=== PATIENT | female | born 1940 | race Hispanic/Latino ===

== ENCOUNTER 2018-03-21 01:27 | Inpatient (IN) | payer MEDICARE ==
[2018-03-21] MEDS ORDERED: ASPIRIN PO ONE (02:19)
--- NOTE | 2018-03-21 03:04 | Emergency Department Report ---
ED Chest Pain HPI - General Chief Complaint: Chest Pain Stated Complaint: CHEST PAIN Time Seen by Provider: 03/21/18 03:02 Source: patient, EMS Mode of arrival: Stretcher Limitations: No Limitations - History of Present Illness MD Complaint: chest pain -: Sudden Onset: during rest Pain Location: left chest Pain Radiation: LUE Severity: moderate Severity scale (0 -10): 5 Quality: heaviness, sharp Consistency: constant Improves With: nothing Worsens With: nothing re: nausea Treatments Prior to Arrival: none Aspirin use within the Past 7 Days: (1) Yes - Related Data On Oral Contraceptives: No Home Medications Medication Instructions Recorded Confirmed Last Taken Aspirin [Adult Aspirin] 81 mg PO DAILY 02/12/18 02/26/18 Unknown D-Methorphan/PE/Acetaminophen 1 each PO DAILY 02/12/18 02/26/18 Unknown [Theraflu Ms Severe Cold Pckt] Doxepin [SINEquan] 50 mg PO QHS 02/12/18 02/26/18 Unknown Escitalopram Oxalate [Lexapro] 20 mg PO QPM 02/12/18 02/26/18 Unknown Melatonin 10 mg PO QHS 02/12/18 02/26/18 Unknown Sitagliptin Phosphate [Januvia] 50 mg PO QPM 02/12/18 02/26/18 Unknown amLODIPine [Norvasc] 10 mg PO DAILY 02/12/18 02/26/18 Unknown busPIRone [Buspar] 5 mg PO TID 02/12/18 02/26/18 Unknown glyBURIDE [Glyburide] 5 mg PO TID 02/12/18 02/26/18 Unknown hydrOXYzine pamoate [Hydroxyzine 25 mg PO QPM 02/12/18 02/26/18 Unknown Pamoate] Clopidogrel [Plavix] 75 mg PO DAILY 02/26/18 02/26/18 Unknown Previous Rx's Medication Instructions Recorded Last Taken Type AtorvaSTATin [Lipitor] 40 mg PO QHS #30 tablet 02/15/18 Unknown Rx Benzonatate [Tessalon Perles] 100 mg PO Q8HR #10 capsule 02/15/18 Unknown Rx Lisinopril [Zestril] 10 mg PO DAILY 30 Days #120 tablet 03/06/18 Unknown Rx Metoprolol Xl [Metoprolol 25 mg PO QDAY #30 tablet 03/06/18 Unknown Rx SUCCINATE ER TAB] Allergies Allergy/AdvReac Type Severity Reaction Status Date / Time Penicillins Allergy Anaphylaxis Verified 02/12/18 19:14 trazodone Allergy Hives Verified 02/12/18 19:14 Heart Score - HEART Score History: Moderately suspicious EKG: Non-specific Age: > 65 Risk factors: > 3 risk factors or hx of atherosclerotic disease Troponin: < normal limit HEART Score: 6 - Critical Actions Critical Actions: 4-6 pts:12-16.6% risk of adverse cardiac event. Should be admitted ED Review of Systems ROS: Stated complaint: CHEST PAIN Other details as noted in HPI Comment: All other systems reviewed and negative Constitutional: denies: chills, fever Eyes: denies: eye pain, eye discharge, vision change ENT: denies: ear pain, throat pain Respiratory: shortness of breath. denies: cough, wheezing Cardiovascular: chest pain. denies: palpitations Endocrine: no symptoms reported Gastrointestinal: denies: abdominal pain, nausea, diarrhea Genitourinary: denies: urgency, dysuria, discharge Musculoskeletal: denies: back pain, joint swelling, arthralgia Skin: denies: rash, lesions Neurological: headache. denies: weakness, paresthesias Psychiatric: denies: anxiety, depression Hematological/Lymphatic: denies: easy bleeding, easy bruising ED Past Medical Hx - Past Medical History Previous Medical History?: Yes Hx Hypertension: Yes Hx CVA: Yes Hx Heart Attack/AMI: Yes Hx Congestive Heart Failure: No Hx Diabetes: Yes Hx Deep Vein Thrombosis: No Hx Liver Disease: No Hx Seizures: No Hx COPD: Yes Hx Dementia: No Hx HIV: Yes - Surgical History Past Surgical History?: Yes Hx Coronary Stent: Yes Hx Pacemaker: No Hx Internal Defibrillator: No Additional Surgical History: Cardia stent placement X4 - Social History Smoking Status: Unknown if ever smoked Substance Use Type: None - Medications Home Medications: Home Medications Medication Instructions Recorded Confirmed Last Taken Type Aspirin [Adult Aspirin] 81 mg PO DAILY 02/12/18 02/26/18 Unknown History D-Methorphan/PE/Acetaminophen 1 each PO DAILY 02/12/18 02/26/18 Unknown History [Theraflu Ms Severe Cold Pckt] Doxepin [SINEquan] 50 mg PO QHS 02/12/18 02/26/18 Unknown History Escitalopram Oxalate [Lexapro] 20 mg PO QPM 02/12/18 02/26/18 Unknown History Melatonin 10 mg PO QHS 02/12/18 02/26/18 Unknown History Sitagliptin Phosphate [Januvia] 50 mg PO QPM 02/12/18 02/26/18 Unknown History amLODIPine [Norvasc] 10 mg PO DAILY 02/12/18 02/26/18 Unknown History busPIRone [Buspar] 5 mg PO TID 02/12/18 02/26/18 Unknown History glyBURIDE [Glyburide] 5 mg PO TID 02/12/18 02/26/18 Unknown History hydrOXYzine pamoate [Hydroxyzine 25 mg PO QPM 02/12/18 02/26/18 Unknown History Pamoate] AtorvaSTATin [Lipitor] 40 mg PO QHS #30 tablet 02/15/18 02/26/18 Unknown Rx Benzonatate [Tessalon Perles] 100 mg PO Q8HR #10 capsule 02/15/18 02/26/18 Unknown Rx Clopidogrel [Plavix] 75 mg PO DAILY 02/26/18 02/26/18 Unknown History Lisinopril [Zestril] 10 mg PO DAILY 30 Days #120 tablet 03/06/18 Unknown Rx Metoprolol Xl [Metoprolol 25 mg PO QDAY #30 tablet 03/06/18 Unknown Rx SUCCINATE ER TAB] ED Physical Exam - General Limitations: No Limitations General appearance: alert, in no apparent distress - Head Head exam: Present: atraumatic, normocephalic - Eye Eye exam: Present: normal appearance, PERRL, EOMI Pupils: Present: normal accommodation - ENT ENT exam: Present: normal exam, mucous membranes moist - Neck Neck exam: Present: normal inspection, full ROM - Respiratory Respiratory exam: Present: normal lung sounds bilaterally. Absent: respiratory distress - Cardiovascular Cardiovascular Exam: Present: regular rate, normal rhythm. Absent: systolic murmur, diastolic murmur, rubs, gallop - GI/Abdominal GI/Abdominal exam: Present: soft, normal bowel sounds - Extremities Exam Extremities exam: Present: normal inspection - Back Exam Back exam: Present: normal inspection - Neurological Exam Neurological exam: Present: alert, oriented X3 - Psychiatric Psychiatric exam: Present: normal affect, normal mood - Skin Skin exam: Present: warm, dry, intact, normal color. Absent: rash ED Course Vital Signs 03/21/18 03/21/18 02:45 02:48 Temperature 97.7 F Pulse Rate 61 Respiratory 16 16 Rate Blood Pressure 123/74 [Left] O2 Sat by Pulse 98 98 Oximetry - Consultations Consultation #1: 03/21/18 05:28 Dr Hamilton Warner wantcecilia patient admitted to Dr bailey. OLEG score - Oleg Score Age > 65: (1) Yes Aspirin use within the Past 7 Days: (1) Yes 3 or more CAD Risk Factors: (1) Yes 2 or more Angina events in past 24 hrs: (1) Yes Known CAD with more than 50% Stenosis: (1) Yes Elevated Cardiac Markers: (0) No ST Deviation Greater than 0.5mm: (0) No OLEG Score: 5 ED Medical Decision Making - Lab Data Result diagrams: 03/21/18 02:45 03/21/18 02:45 Lab Results 03/21/18 03/21/18 Range/Units 02:45 02:45 WBC 9.3 (4.5-11.0) K/mm3 RBC 4.86 (3.65-5.03) M/mm3 Hgb 13.4 (10.1-14.3) gm/dl Hct 41.3 (30.3-42.9) % MCV 85 (79-97) fl MCH 28 (28-32) pg MCHC 32 (30-34) % RDW 14.2 (13.2-15.2) % Plt Count 431 (140-440) K/mm3 Lymph % (Auto) 32.2 (13.4-35.0) % [place] % (Auto) 10.2 H (0.0-7.3) % Eos % (Auto) 3.9 (0.0-4.3) % Baso % (Auto) 1.0 (0.0-1.8) % Lymph # 3.0 (1.2-5.4) K/mm3 [place] # 0.9 H (0.0-0.8) K/mm3 Eos # 0.4 (0.0-0.4) K/mm3 Baso # 0.1 (0.0-0.1) K/mm3 Seg Neutrophils % 52.7 (40.0-70.0) % Seg Neutrophils # 4.9 (1.8-7.7) K/mm3 Sodium 138 (137-145) mmol/L Potassium 4.5 (3.6-5.0) mmol/L Chloride 102.8 (98-107) mmol/L Carbon Dioxide 23 (22-30) mmol/L Anion Gap 17 mmol/L BUN 21 H (7-17) mg/dL Creatinine 0.5 L (0.7-1.2) mg/dL Estimated GFR > 60 ml/min BUN/Creatinine Ratio 42 % Glucose 133 H (65-100) mg/dL Calcium 9.1 (8.4-10.2) mg/dL Troponin T < 0.010 (0.00-0.029) ng/mL - EKG Data -: EKG Interpreted by Ct EKG shows normal: sinus rhythm Rate: bradycardia (58) - EKG Data When compared to previous EKG there are: previous EKG unavailable Interpretation: nonspecific ST-T wave subhash 03/21/18 03:26 RBBB, No STEMI. - Radiology Data Radiology results: report reviewed, image reviewed CXR and CT head showed no acute findings. - Medical Decision Making chest pain. Critical care attestation.: If time is entered above; I have spent that time in minutes in the direct care of this critically ill patient, excluding procedure time. ED Disposition Clinical Impression: Coronary artery disease with hx of myocardial infarct w/o hx of CABG Chest pain Qualifiers: Chest pain type: unspecified Qualified Code(s): R07.9 - Chest pain, unspecified Disposition: OP ADMIT IP TO THIS HOSP Is pt being admited?: Yes Does the pt Need Aspirin: Yes Condition: Stable Instructions: Chest Pain (ED) Referrals: PRIMARY CARE, [Primary Care Provider] - 3-5 Days Time of Disposition: 05:28
[2018-03-21 03:05] LABS: Basophils # (Auto) 0.1 K/mm3 (0.0-0.1); Eosinophils # (Auto) 0.4 K/mm3 (0.0-0.4); Eosinophils % (Auto) 3.9 % (0.0-4.3); Hematocrit 41.3 % (30.3-42.9); Hemoglobin 13.4 gm/dl (10.1-14.3); Lymphocytes % (Auto) 32.2 % (13.4-35.0); Mean Corpuscular HGB Conc 32 % (30-34); Mean Corpuscular Volume 85 fl (79-97); Monocytes # (Auto) 0.9 K/mm3 (0.0-0.8); Monocytes % (Auto) 10.2 % (0.0-7.3); Platelet Count 431 K/mm3 (140-440); Red Blood Count 4.86 M/mm3 (3.65-5.03); Red Cell Distribution Width 14.2 % (13.2-15.2)
[2018-03-21 03:13] LABS: BUN/Creatinine Ratio 42; Blood Urea Nitrogen 21 mg/dL (7-17); Calcium 9.1 mg/dL (8.4-10.2); Hemolysis Index 53
--- NOTE | 2018-03-21 03:43 | XRay Report ---
FINAL REPORT PROCEDURE: XR CHEST 1V AP TECHNIQUE: Chest radiograph anteroposterior view. CPT 64715 HISTORY: chest pain COMPARISON: 02/26/2018 FINDINGS: Heart: Normal. Mediastinum/Vessels: Normal. Lungs/Pleural space: Normal. Bony thorax: No acute osseous abnormality. Life support devices: None. IMPRESSION: No acute cardiopulmonary abnormality.
[2018-03-21 04:00] LABS: INR 0.97 (0.87-1.13)
[2018-03-21 04:01] LABS: Partial Thromboplastin Time 25.1 Sec. (24.2-36.6)
[2018-03-21] MEDS ORDERED: MORPHINE ONE (04:02)
--- NOTE | 2018-03-21 04:04 | Cat Scan Report ---
FINAL REPORT PROCEDURE: CT HEAD/BRAIN WO CON TECHNIQUE: Computerized tomography of the head was performed without contrast material. HISTORY: headache COMPARISON: No prior studies are available for comparison. FINDINGS: Skull and scalp: Normal. Paranasal sinuses: Normal. Ventricles and subarachnoid spaces: Normal. Cerebrum: No evidence of hemorrhage, acute infarction or mass . Cerebellum and brainstem: No evidence of hemorrhage, acute infarction or mass. Vasculature: Normal. Comments: None. IMPRESSION: There is no evidence of an acute intracranial process
[2018-03-21 04:18] LABS: Bilirubin,Urine NEG (Negative); Blood,Urine NEG (Negative); Color,Urine Yellow (Yellow); Mucus,Urine FEW /HPF; Protein,Urine <15 mg/dL mg/dL (Negative); Urobilinogen,Urine < 2.0 mg/dL (<2.0)
[2018-03-21] MEDS ORDERED: MORPHINE IV ONE (05:21)
--- NOTE | 2018-03-21 10:41 | History and Physical Report ---
History of Present Illness Date of examination: 03/21/18 Date of admission: 03/21/18 05:29 Chief complaint: chest pain History of present illness: Patient is 77-year-old with a history of coronary artery disease, hypertension,diabetes and previous stroke. She was just discharged from the hospital 03/12/2018 to [facility]. She presents with chest pain. Chest pain is left-sided, intensity 7 out of 10 radiating to the left arm. No aggravating factors. She denies diaphoresis. No shortness of breath. Patient has been admitted multiple times for similar presentation and was just discharged from here last week. She was evaluated in Emergency Department, given Aspirin. Admit for further management. Past History Past Medical History: CAD, diabetes, hypertension, hyperlipidemia, stroke Past Surgical History: , PTCA Social history: full code, other (Lives at [facility]). denies: smoking, alcohol abuse Family history: hypertension Medications and Allergies Allergies Allergy/AdvReac Type Severity Reaction Status Date / Time Penicillins Allergy Anaphylaxis Verified 02/12/18 19:14 trazodone Allergy Hives Verified 02/12/18 19:14 Home Medications Medication Instructions Recorded Confirmed Last Taken Type Escitalopram Oxalate [Lexapro] 20 mg PO QPM 02/12/18 03/21/18 Unknown History Melatonin 10 mg PO QHS 02/12/18 03/21/18 Unknown History Sitagliptin Phosphate [Januvia] 50 mg PO QPM 02/12/18 03/21/18 Unknown History amLODIPine [Norvasc] 10 mg PO DAILY 02/12/18 03/21/18 Unknown History busPIRone [Buspar] 5 mg PO TID 02/12/18 03/21/18 Unknown History glyBURIDE [Glyburide] 5 mg PO TID 02/12/18 03/21/18 Unknown History hydrOXYzine pamoate [Hydroxyzine 25 mg PO QPM 02/12/18 03/21/18 Unknown History Pamoate] AtorvaSTATin [Lipitor] 40 mg PO QHS #30 tablet 02/15/18 03/21/18 Unknown Rx Benzonatate [Tessalon Perles] 100 mg PO Q8HR #10 capsule 02/15/18 03/21/18 Unknown Rx Clopidogrel [Plavix] 75 mg PO DAILY 02/26/18 03/21/18 Unknown History Lisinopril [Zestril] 10 mg PO DAILY 30 Days #120 tablet 03/06/18 03/21/18 Unknow n Rx Metoprolol Xl [Metoprolol 25 mg PO QDAY #30 tablet 03/06/18 03/21/18 Unknown Rx SUCCINATE ER TAB] Acetaminophen [Tylenol] 650 mg PO Q4H PRN 03/21/18 03/21/18 Unknown History Aspirin 81 mg PO DAILY 03/21/18 03/21/18 Unknown History Donepezil [Aricept] 5 mg PO QHS 03/21/18 03/21/18 Unknown History Doxepin HCl 50 mg PO QHS 03/21/18 03/21/18 Unknown History Escitalopram Oxalate [Lexapro] 20 mg PO QPM 03/21/18 03/21/18 Unknown History Review of Systems All systems: negative (No cough, no fever, no shortness of breath, no abd pain. All other systems reviewed and are negative) Exam - Physical Exam Narrative exam: GEN: Not in acute distress,lying in bed HEENT: Normocephalic, atraumatic, Neck: supple, No JVD Lungs: Clear to auscultation, no wheeze Heart:S1 and S2 regular, no murmurs, rubs or gallop, Abd:soft, non tender, non distended, normal bowel sounds Ext: No edema, no clubbing or cyanosis Neuro: Awake,alert, oriented x 3, No focal signs Psych:Normal mood - Constitutional Vitals: Temp Pulse Resp BP Pulse Ox 97.7 F 62 17 126/49 96 03/21/18 02:45 03/21/18 09:00 03/21/18 09:00 03/21/18 09:00 03/21/18 09:00 Results - Labs CBC & Chem 7: 03/21/18 02:45 03/21/18 02:45 Labs: Abnormal lab results 03/21/18 03/21/18 03/21/18 Range/Units 02:45 02:45 Unknown [place] % (Auto) 10.2 H (0.0-7.3) % [place] # 0.9 H (0.0-0.8) K/mm3 BUN 21 H (7-17) mg/dL Creatinine 0.5 L (0.7-1.2) mg/dL Glucose 133 H (65-100) mg/dL Urine WBC (Auto) 14.0 H (0.0-6.0) /HPF Assessment and Plan Chest pain. Admit to Telemetry to r/o ACS Aspirin,Plavix serial Troponins Cardiology consulted She has had recent workup Coronary artery disease s/p PCI Resume home meds Diabetes mellitus type 2. Renew home meds Hypertension Monitor BP UTI. Get Urine culture Start Levaquin Failure to thrive. Patient just discharged to SNF last week, on 03/12/18 from here. Full code status
--- NOTE | 2018-03-21 11:10 | Consultation ---
History of Present Illness Consult date: 03/21/18 Consult reason: other (CAD and angina) History of present illness: 77 year old female presenting with chest pains which are left precordial and not associated with diaphoresis nausea vomiting or radiation. Patient is known to [facility] and was recently discharged with similar symptoms. Management plan is conservative. Past History Past Medical History: CAD, diabetes, hypertension, hyperlipidemia Social history: no significant social history Family history: no significant family history Medications and Allergies Allergies Allergy/AdvReac Type Severity Reaction Status Date / Time Penicillins Allergy Anaphylaxis Verified 02/12/18 19:14 trazodone Allergy Hives Verified 02/12/18 19:14 Home Medications Medication Instructions Recorded Confirmed Last Taken Type Escitalopram Oxalate [Lexapro] 20 mg PO QPM 02/12/18 03/21/18 Unknown History Melatonin 10 mg PO QHS 02/12/18 03/21/18 Unknown History Sitagliptin Phosphate [Januvia] 50 mg PO QPM 02/12/18 03/21/18 Unknown History amLODIPine [Norvasc] 10 mg PO DAILY 02/12/18 03/21/18 Unknown History busPIRone [Buspar] 5 mg PO TID 02/12/18 03/21/18 Unknown History glyBURIDE [Glyburide] 5 mg PO TID 02/12/18 03/21/18 Unknown History hydrOXYzine pamoate [Hydroxyzine 25 mg PO QPM 02/12/18 03/21/18 Unknown History Pamoate] AtorvaSTATin [Lipitor] 40 mg PO QHS #30 tablet 02/15/18 03/21/18 Unknown Rx Benzonatate [Tessalon Perles] 100 mg PO Q8HR #10 capsule 02/15/18 03/21/18 Unknown Rx Clopidogrel [Plavix] 75 mg PO DAILY 02/26/18 03/21/18 Unknown History Lisinopril [Zestril] 10 mg PO DAILY 30 Days #120 tablet 03/06/18 03/21/18 Unknown Rx Metoprolol Xl [Metoprolol 25 mg PO QDAY #30 tablet 03/06/18 03/21/18 Unknown Rx SUCCINATE ER TAB] Acetaminophen [Tylenol] 650 mg PO Q4H PRN 03/21/18 03/21/18 Unknown History Aspirin 81 mg PO DAILY 03/21/18 03/21/18 Unknown History Donepezil [Aricept] 5 mg PO QHS 03/21/18 03/21/18 Unknown History Doxepin HCl 50 mg PO QHS 03/21/18 03/21/18 Unknown History Escitalopram Oxalate [Lexapro] 20 mg PO QPM 03/21/18 03/21/18 Unknown History Review of Systems All systems: negative Cardiovascular: chest pain, shortness of breath Physical Examination Vital Signs Temp Pulse Resp BP Pulse Ox 97.7 F 61 16 123/74 98 03/21/18 02:45 03/21/18 02:45 03/21/18 02:45 03/21/18 02:45 03/21/18 02:45 General appearance: no acute distress, well-nourished HEENT: Positive: PERRL, Mucus Membranes Moist Neck: Positive: neck supple, trachea midline Cardiac: Positive: Reg Rate and Rhythm, S1/S2, S4, Audible Murmur, Systolic Murmur, PMI, Laterally Displaced Lungs: Positive: clear to auscultation, Normal Breath Sounds Neuro: Positive: Grossly Intact Abdomen: Positive: Soft, Active Bowel Sounds. Negative: Tender, Distended Skin: Positive: Clear Musculoskeletal: No Pain, Normal Range of Motion Extremities: Present: normal. Absent: edema Results 03/21/18 02:45 03/21/18 02:45 Coagulation 03/21/18 Range/Units 03:26 PT 13.3 (12.2-14.9) Sec. INR 0.97 (0.87-1.13) APTT 25.1 (24.2-36.6) Sec. CBC 03/21/18 Range/Units 02:45 WBC 9.3 (4.5-11.0) K/mm3 RBC 4.86 (3.65-5.03) M/mm3 Hgb 13.4 (10.1-14.3) gm/dl Hct 41.3 (30.3-42.9) % Plt Count 431 (140-440) K/mm3 Lymph # 3.0 (1.2-5.4) K/mm3 [place] # 0.9 H (0.0-0.8) K/mm3 Eos # 0.4 (0.0-0.4) K/mm3 Baso # 0.1 (0.0-0.1) K/mm3 Comprehensive Metabolic Panel 03/21/18 Range/Units 02:45 Sodium 138 (137-145) mmol/L Potassium 4.5 (3.6-5.0) mmol/L Chloride 102.8 (98-107) mmol/L Carbon Dioxide 23 (22-30) mmol/L BUN 21 H (7-17) mg/dL Creatinine 0.5 L (0.7-1.2) mg/dL Glucose 133 H (65-100) mg/dL Calcium 9.1 (8.4-10.2) mg/dL EKG interpretations - Telemetry EKG Rhythm: Sinus Rhythm Assessment and Plan 1. Coronary artery disease with class III angina 2. Status post PCI to proximal and mid LAD residual distal LAD disease not suitable for PCI 3. Type 2 diabetes mellitus 4. Hyperlipidemia 5. History of TIA/CVA Plan Continue conservative anti-ischemic medication maximize medication and Ranexa.
[2018-03-21] MEDS ORDERED: TYLENOL PO PRN ×2 (14:20→16:18)
[2018-03-21] MEDS: TOPROL XL PO SCH (14:59)
[2018-03-21] MEDS: TESSALON PERLES PO SCH ×2 (14:59→21:30)
[2018-03-21] MEDS ORDERED: SODIUM CHLORIDE FLUSH SYRINGE 10 ML IV PRN (16:18)
[2018-03-21] MEDS ORDERED: ZOFRAN IV PRN (16:18)
[2018-03-21] MEDS: MORPHINE IV PRN (16:31)
[2018-03-21] MEDS: ZESTRIL PO SCH (17:28)
[2018-03-21] MEDS: NORVASC PO SCH (17:29)
[2018-03-21] MEDS: VISTARIL PO SCH (17:29)
[2018-03-21] MEDS: TRADJENTA PO SCH (17:29)
[2018-03-21] MEDS: BABY ASPIRIN PO SCH (17:29)
[2018-03-21] MEDS: PLAVIX PO SCH (17:29)
[2018-03-21] MEDS: LEXAPRO PO SCH (17:30)
[2018-03-21] MEDS ORDERED: NON-FORMULARY (Sitagliptin Phosphate [Januvia] 50 MG) PO SCH (18:00)
[2018-03-21] MEDS ORDERED: NON-FORMULARY (Escitalopram Oxalate [Lexapro] 20 MG) PO SCH (18:00)
[2018-03-21] MEDS: LEVAQUIN 500MG/100ML 500 MG/100 ML BAG IV SCH (21:29)
[2018-03-21] MEDS: BUSPAR PO SCH (21:30)
[2018-03-21] MEDS: SODIUM CHLORIDE FLUSH SYRINGE 10 ML IV SCH (21:30)
[2018-03-21] MEDS: ARICEPT PO SCH (21:30)
[2018-03-21] MEDS: DIABETA PO SCH (21:30)
[2018-03-21] MEDS: SINEquan PO SCH (21:31)
[2018-03-21] MEDS ORDERED: NON-FORMULARY (Melatonin [Melatonin] 10 MG) PO SCH (22:00)
[2018-03-21] MEDS ORDERED: DOXEPIN HCL 50 MG PO SCH (22:00)
[2018-03-22] MEDS: TESSALON PERLES PO SCH ×3 (05:46→21:28)
[2018-03-22 06:16] LABS: Basophils # (Auto) 0.1 K/mm3 (0.0-0.1); Basophils % (Auto) 0.8 % (0.0-1.8); Eosinophils # (Auto) 0.4 K/mm3 (0.0-0.4); Eosinophils % (Auto) 3.6 % (0.0-4.3); Hemoglobin 13.8 gm/dl (10.1-14.3); Lymphocytes % (Auto) 29.9 % (13.4-35.0); Mean Corpuscular HGB Conc 32 % (30-34); Mean Corpuscular Volume 85 fl (79-97); Monocytes # (Auto) 0.9 K/mm3 (0.0-0.8); Monocytes % (Auto) 8.6 % (0.0-7.3); Platelet Count 420 K/mm3 (140-440); Red Blood Count 5.03 M/mm3 (3.65-5.03); Red Cell Distribution Width 14.1 % (13.2-15.2)
[2018-03-22 06:31] LABS: BUN/Creatinine Ratio 30; Blood Urea Nitrogen 15 mg/dL (7-17); Calcium 8.8 mg/dL (8.4-10.2); Hemolysis Index 41
[2018-03-22] MEDS: MORPHINE IV PRN ×2 (08:54→14:15)
[2018-03-22] MEDS: DIABETA PO SCH ×3 (08:58→20:23)
[2018-03-22] MEDS: PLAVIX PO SCH (08:59)
[2018-03-22] MEDS: ZESTRIL PO SCH (08:59)
[2018-03-22] MEDS: BABY ASPIRIN PO SCH (09:00)
[2018-03-22] MEDS: BUSPAR PO SCH ×5 (09:00→23:21)
[2018-03-22] MEDS: NORVASC PO SCH (09:01)
[2018-03-22] MEDS: SODIUM CHLORIDE FLUSH SYRINGE 10 ML IV SCH ×3 (09:02→23:26)
[2018-03-22] MEDS: TOPROL XL PO SCH (09:02)
--- NOTE | 2018-03-22 10:30 | Progress Note ---
Assessment and Plan 1. Coronary artery disease with class III angina 2. Status post PCI to proximal and mid LAD residual distal LAD disease not suitable for PCI 3. Type 2 diabetes mellitus 4. Hyperlipidemia 5. History of TIA/CVA Plan Continue conservative anti-ischemic medication maximize medication and Ranexa. Subjective Date of service: 03/22/18 Interval history: No cardiac symptoms Objective Vital Signs Temp Pulse Resp BP Pulse Ox 03/22/18 09:02 72 03/22/18 09:01 72 03/22/18 08:59 72 03/22/18 08:08 98.0 F 75 20 119/61 93 03/22/18 04:19 98.0 F 60 18 118/51 97 03/22/18 02:00 79 03/21/18 23:52 97.0 F L 67 18 117/57 96 03/21/18 19:11 98.0 F 70 20 114/56 91 03/21/18 18:48 96 03/21/18 17:21 97.9 F 61 16 134/55 94 03/21/18 14:59 71 138/78 03/21/18 13:18 98.2 F 71 18 138/78 91 - Physical Examination General: Appears Well, No Apparent Distress HEENT: Positive: PERRL, Mucus Membranes Moist Neck: Positive: neck supple, trachea midline Cardiac: Positive: Regular Rate, S1/S2, S3, S4, PMI, Dilated, Laterally Displaced Lungs: Positive: clear to auscultation, No Wheeze, Rales, Rhonchi Neuro: Positive: Grossly Intact Abdomen: Positive: Soft, Active Bowel Sounds. Negative: Tender, Distended Skin: Positive: Clear Musculoskeletal: No Pain, Normal Range of Motion Extremities: Present: normal. Absent: edema - Labs and Meds CBC 03/22/18 Range/Units 05:42 WBC 10.1 (4.5-11.0) K/mm3 RBC 5.03 (3.65-5.03) M/mm3 Hgb 13.8 (10.1-14.3) gm/dl Hct 43.0 H (30.3-42.9) % Plt Count 420 (140-440) K/mm3 Lymph # 3.0 (1.2-5.4) K/mm3 [place] # 0.9 H (0.0-0.8) K/mm3 Eos # 0.4 (0.0-0.4) K/mm3 Baso # 0.1 (0.0-0.1) K/mm3 Comprehensive Metabolic Panel 03/22/18 Range/Units 05:42 Sodium 140 (137-145) mmol/L Potassium 4.6 (3.6-5.0) mmol/L Chloride 102.6 (98-107) mmol/L Carbon Dioxide 24 (22-30) mmol/L BUN 15 (7-17) mg/dL Creatinine 0.5 L (0.7-1.2) mg/dL Glucose 114 H (65-100) mg/dL Calcium 8.8 (8.4-10.2) mg/dL
--- NOTE | 2018-03-22 11:11 | Progress Note ---
Assessment and Plan Assessment and plan: Chest pain. Admit to Telemetry to r/o ACS Aspirin,Plavix serial Troponins Cardiology consulted She has had recent workup Ranexa added by cardiology Coronary artery disease s/p PCI Resume home meds Diabetes mellitus type 2. Renew home meds Hypertension Monitor BP UTI. Get Urine culture Started Levaquin Failure to thrive. Patient just discharged to SNF last week, on 03/12/18 from here. Full code status History Interval history: Presented with chest pain Hospitalist Physical - Physical exam Narrative exam: GEN: Not in acute distress,lying in bed HEENT: Normocephalic, atraumatic, Neck: supple, No JVD Lungs: Clear to auscultation, no wheeze Heart:S1 and S2 regular, no murmurs, rubs or gallop, Abd:soft, non tender, non distended, normal bowel sounds Ext: No edema, no clubbing or cyanosis Neuro: Awake,alert, oriented x 3, No focal signs Psych:Normal mood - Constitutional Vitals: Temp Pulse Resp BP Pulse Ox 98.0 F 72 20 119/61 93 03/22/18 08:08 03/22/18 09:02 03/22/18 08:08 03/22/18 08:08 03/22/18 08:08 General appearance: Present: no acute distress, well-nourished Results - Labs CBC & Chem 7: 03/22/18 05:42 03/22/18 05:42 Labs: Laboratory Last Values WBC 10.1 K/mm3 (4.5-11.0) 03/22/18 05:42 RBC 5.03 M/mm3 (3.65-5.03) 03/22/18 05:42 Hgb 13.8 gm/dl (10.1-14.3) 03/22/18 05:42 Hct 43.0 % (30.3-42.9) H 03/22/18 05:42 MCV 85 fl (79-97) 03/22/18 05:42 MCH 27 pg (28-32) L 03/22/18 05:42 MCHC 32 % (30-34) 03/22/18 05:42 RDW 14.1 % (13.2-15.2) 03/22/18 05:42 Plt Count 420 K/mm3 (140-440) 03/22/18 05:42 Lymph % (Auto) 29.9 % (13.4-35.0) 03/22/18 05:42 [place] % (Auto) 8.6 % (0.0-7.3) H 03/22/18 05:42 Eos % (Auto) 3.6 % (0.0-4.3) 03/22/18 05:42 Baso % (Auto) 0.8 % (0.0-1.8) 03/22/18 05:42 Lymph # 3.0 K/mm3 (1.2-5.4) 03/22/18 05:42 [place] # 0.9 K/mm3 (0.0-0.8) H 03/22/18 05:42 Eos # 0.4 K/mm3 (0.0-0.4) 03/22/18 05:42 Baso # 0.1 K/mm3 (0.0-0.1) 03/22/18 05:42 Seg Neutrophils % 57.1 % (40.0-70.0) 03/22/18 05:42 Seg Neutrophils # 5.8 K/mm3 (1.8-7.7) 03/22/18 05:42 PT 13.3 Sec. (12.2-14.9) 03/21/18 03:26 INR 0.97 (0.87-1.13) 03/21/18 03:26 APTT 25.1 Sec. (24.2-36.6) 03/21/18 03:26 D-Dimer 216.43 ng/mlDDU (0-234) 03/21/18 03:26 Sodium 140 mmol/L (137-145) 03/22/18 05:42 Potassium 4.6 mmol/L (3.6-5.0) 03/22/18 05:42 Chloride 102.6 mmol/L (98-107) 03/22/18 05:42 Carbon Dioxide 24 mmol/L (22-30) 03/22/18 05:42 Anion Gap 18 mmol/L 03/22/18 05:42 BUN 15 mg/dL (7-17) 03/22/18 05:42 Creatinine 0.5 mg/dL (0.7-1.2) L 03/22/18 05:42 Estimated GFR > 60 ml/min 03/22/18 05:42 BUN/Creatinine Ratio 30 % 03/22/18 05:42 Glucose 114 mg/dL (65-100) H 03/22/18 05:42 POC Glucose 110 (70-105) H 03/22/18 06:30 Calcium 8.8 mg/dL (8.4-10.2) 03/22/18 05:42 Troponin T < 0.010 ng/mL (0.00-0.029) 03/21/18 08:24 NT-Pro-B Natriuret Pep 33.77 pg/mL (0-900) 03/21/18 03:26 Lipase 26 units/L (13-60) 03/21/18 03:26 Urine Color Yellow (Yellow) 03/21/18 Unknown Urine Turbidity Clear (Clear) 03/21/18 Unknown Urine pH 5.0 (5.0-7.0) 03/21/18 Unknown Ur Specific [place] 1.020 (1.003-1.030) 03/21/18 Unknown Urine Protein <15 mg/dl mg/dL (Negative) 03/21/18 Unknown Urine Glucose (UA) Neg mg/dL (Negative) 03/21/18 Unknown Urine Ketones Neg mg/dL (Negative) 03/21/18 Unknown Urine Blood Neg (Negative) 03/21/18 Unknown Urine Nitrite Neg (Negative) 03/21/18 Unknown Urine Bilirubin Neg (Negative) 03/21/18 Unknown Urine Urobilinogen < 2.0 mg/dL (<2.0) 03/21/18 Unknown Ur Leukocyte Esterase Mod (Negative) 03/21/18 Unknown Urine WBC (Auto) 14.0 /HPF (0.0-6.0) H 03/21/18 Unknown Urine RBC (Auto) 1.0 /HPF (0.0-6.0) 03/21/18 Unknown U Epithel Cells (Auto) 1.0 /HPF (0-13.0) 03/21/18 Unknown Urine Mucus Few /HPF 03/21/18 Unknown
[2018-03-22] MEDS: RANEXA ER PO SCH ×2 (13:03→21:42)
[2018-03-22] MEDS: LEXAPRO PO SCH (18:38)
[2018-03-22] MEDS: TRADJENTA PO SCH (18:38)
[2018-03-22] MEDS: VISTARIL PO SCH (18:39)
[2018-03-22] MEDS: LEVAQUIN 500MG/100ML 500 MG/100 ML BAG IV SCH (20:24)
[2018-03-22] MEDS: ARICEPT PO SCH (21:42)
[2018-03-22] MEDS: SINEquan PO SCH (21:42)
[2018-03-22] MEDS: LOVENOX SUB-Q SCH (21:45)
[2018-03-23] MEDS: AMBIEN PO PRN ×2 (00:55→22:13)
[2018-03-23] MEDS: TESSALON PERLES PO SCH ×3 (06:23→22:11)
--- NOTE | 2018-03-23 09:53 | Progress Note ---
Assessment and Plan Assessment and plan: Chest pain. Angina Admit to Telemetry to r/o ACS Aspirin,Plavix serial Troponins Cardiology following She has had recent workup Ranexa added by cardiology Coronary artery disease s/p PCI Resume home meds Diabetes mellitus type 2. Renew home meds Hypertension Monitor BP UTI Started Levaquin Failure to thrive. Patient just discharged to SNF last week, on 03/12/18 from here. Full code status Poss dc to SNF tomorrow if no more chest pain. History Interval history: Presented with chest pain, had chest pain last night Hospitalist Physical - Physical exam Narrative exam: GEN: Not in acute distress,lying in bed HEENT: Normocephalic, atraumatic, Neck: supple, No JVD Lungs: Clear to auscultation, no wheeze Heart:S1 and S2 regular, no murmurs, rubs or gallop, Abd:soft, non tender, non distended, normal bowel sounds Ext: No edema, no clubbing or cyanosis Neuro: Awake,alert, oriented x 3, No focal signs Psych:Normal mood - Constitutional Vitals: Temp Pulse Resp BP Pulse Ox 98.6 F 72 16 132/59 92 03/23/18 08:26 03/23/18 08:26 03/23/18 08:26 03/23/18 08:26 03/23/18 08:26 General appearance: Present: no acute distress, well-nourished Results - Labs CBC & Chem 7: 03/22/18 05:42 03/22/18 05:42 Labs: Laboratory Last Values WBC 10.1 K/mm3 (4.5-11.0) 03/22/18 05:42 RBC 5.03 M/mm3 (3.65-5.03) 03/22/18 05:42 Hgb 13.8 gm/dl (10.1-14.3) 03/22/18 05:42 Hct 43.0 % (30.3-42.9) H 03/22/18 05:42 MCV 85 fl (79-97) 03/22/18 05:42 MCH 27 pg (28-32) L 03/22/18 05:42 MCHC 32 % (30-34) 03/22/18 05:42 RDW 14.1 % (13.2-15.2) 03/22/18 05:42 Plt Count 420 K/mm3 (140-440) 03/22/18 05:42 Lymph % (Auto) 29.9 % (13.4-35.0) 03/22/18 05:42 [place] % (Auto) 8.6 % (0.0-7.3) H 03/22/18 05:42 Eos % (Auto) 3.6 % (0.0-4.3) 03/22/18 05:42 Baso % (Auto) 0.8 % (0.0-1.8) 03/22/18 05:42 Lymph # 3.0 K/mm3 (1.2-5.4) 03/22/18 05:42 [place] # 0.9 K/mm3 (0.0-0.8) H 03/22/18 05:42 Eos # 0.4 K/mm3 (0.0-0.4) 03/22/18 05:42 Baso # 0.1 K/mm3 (0.0-0.1) 03/22/18 05:42 Seg Neutrophils % 57.1 % (40.0-70.0) 03/22/18 05:42 Seg Neutrophils # 5.8 K/mm3 (1.8-7.7) 03/22/18 05:42 PT 13.3 Sec. (12.2-14.9) 03/21/18 03:26 INR 0.97 (0.87-1.13) 03/21/18 03:26 APTT 25.1 Sec. (24.2-36.6) 03/21/18 03:26 D-Dimer 216.43 ng/mlDDU (0-234) 03/21/18 03:26 Sodium 140 mmol/L (137-145) 03/22/18 05:42 Potassium 4.6 mmol/L (3.6-5.0) 03/22/18 05:42 Chloride 102.6 mmol/L (98-107) 03/22/18 05:42 Carbon Dioxide 24 mmol/L (22-30) 03/22/18 05:42 Anion Gap 18 mmol/L 03/22/18 05:42 BUN 15 mg/dL (7-17) 03/22/18 05:42 Creatinine 0.5 mg/dL (0.7-1.2) L 03/22/18 05:42 Estimated GFR > 60 ml/min 03/22/18 05:42 BUN/Creatinine Ratio 30 % 03/22/18 05:42 Glucose 114 mg/dL (65-100) H 03/22/18 05:42 POC Glucose 76 (70-105) 03/23/18 06:13 Calcium 8.8 mg/dL (8.4-10.2) 03/22/18 05:42 Troponin T < 0.010 ng/mL (0.00-0.029) 03/21/18 08:24 NT-Pro-B Natriuret Pep 33.77 pg/mL (0-900) 03/21/18 03:26 Lipase 26 units/L (13-60) 03/21/18 03:26 Urine Color Yellow (Yellow) 03/21/18 Unknown Urine Turbidity Clear (Clear) 03/21/18 Unknown Urine pH 5.0 (5.0-7.0) 03/21/18 Unknown Ur Specific [place] 1.020 (1.003-1.030) 03/21/18 Unknown Urine Protein <15 mg/dl mg/dL (Negative) 03/21/18 Unknown Urine Glucose (UA) Neg mg/dL (Negative) 03/21/18 Unknown Urine Ketones Neg mg/dL (Negative) 03/21/18 Unknown Urine Blood Neg (Negative) 03/21/18 Unknown Urine Nitrite Neg (Negative) 03/21/18 Unknown Urine Bilirubin Neg (Negative) 03/21/18 Unknown Urine Urobilinogen < 2.0 mg/dL (<2.0) 03/21/18 Unknown Ur Leukocyte Esterase Mod (Negative) 03/21/18 Unknown Urine WBC (Auto) 14.0 /HPF (0.0-6.0) H 03/21/18 Unknown Urine RBC (Auto) 1.0 /HPF (0.0-6.0) 03/21/18 Unknown U Epithel Cells (Auto) 1.0 /HPF (0-13.0) 03/21/18 Unknown Urine Mucus Few /HPF 03/21/18 Unknown
--- NOTE | 2018-03-23 10:43 | Progress Note ---
Addendum entered and electronically signed by JOON PHIPPS MD 03/23/18 17:44: Medical therapy for small vessel coronary artery disease and chronic stable angina pectoris. Original Note: Assessment and Plan Chronic stable angina CAD with history of [place] and PCI Cath 10/2016 - Widely patent prox and mid LAD stent. Medical therapy recommended for small vessel CAD. Echo 10/2016 - normal LVEF MPI 10/2016 - small area of decreased perfusion in the anteroseptal wall with partial improvement at rest MPI 01/2018 showing the same defect noted previously History of TIA and CVA Hyperlipidemia NIDDM Hearing impairment Recommend: Continue medical therapy for chronic stable angina and coronary artery disease. Subjective Date of service: 03/23/18 Interval history: Patient reports less chest pain today. Objective Vital Signs Temp Pulse Resp BP Pulse Ox 03/23/18 08:26 98.6 F 72 16 132/59 92 03/23/18 06:14 98.0 F 70 18 129/63 92 03/22/18 23:40 98.9 F 17 119/51 03/22/18 22:00 64 03/22/18 19:45 98.1 F 17 118/49 03/22/18 16:04 98.0 F 64 20 136/48 92 03/22/18 11:22 98.0 F 73 20 135/57 95 - Physical Examination General: No Apparent Distress HEENT: Positive: PERRL Neck: Positive: trachea midline Cardiac: Positive: Reg Rate and Rhythm Lungs: Positive: Decreased Breath Sounds Neuro: Positive: Grossly Intact Abdomen: Positive: Active Bowel Sounds Extremities: Absent: edema
[2018-03-23] MEDS: BUSPAR PO SCH ×3 (11:54→21:23)
[2018-03-23] MEDS: NORVASC PO SCH (11:55)
[2018-03-23] MEDS: TOPROL XL PO SCH (11:56)
[2018-03-23] MEDS: RANEXA ER PO SCH ×2 (11:56→22:11)
[2018-03-23] MEDS: PLAVIX PO SCH (11:56)
[2018-03-23] MEDS: BABY ASPIRIN PO SCH (11:57)
[2018-03-23] MEDS: ZESTRIL PO SCH (11:57)
[2018-03-23] MEDS: SODIUM CHLORIDE FLUSH SYRINGE 10 ML IV SCH ×2 (11:58→22:13)
[2018-03-23] MEDS: DIABETA PO SCH ×3 (12:02→21:23)
[2018-03-23] MEDS ORDERED: NITROSTAT SL ONE (18:02)
[2018-03-23] MEDS: LEXAPRO PO SCH (18:49)
[2018-03-23] MEDS: TRADJENTA PO SCH (18:50)
[2018-03-23] MEDS: NITROSTAT SL PRN (18:52)
[2018-03-23] MEDS: VISTARIL PO SCH (19:38)
[2018-03-23 20:19] LABS: Creatine Kinase MB 1.3 ng/mL (0.0-4.0)
[2018-03-23] MEDS: LEVAQUIN PO SCH (21:23)
[2018-03-23] MEDS: LOVENOX SUB-Q SCH (22:11)
[2018-03-23] MEDS: ARICEPT PO SCH (22:12)
[2018-03-23] MEDS: SINEquan PO SCH (22:12)
[2018-03-24] MEDS: TESSALON PERLES PO SCH ×3 (05:44→22:11)
[2018-03-24] MEDS: NORVASC PO SCH (09:25)
[2018-03-24] MEDS: RANEXA ER PO SCH ×2 (09:25→22:11)
[2018-03-24] MEDS: ZESTRIL PO SCH (09:25)
[2018-03-24] MEDS: BUSPAR PO SCH ×3 (09:25→22:12)
[2018-03-24] MEDS: BABY ASPIRIN PO SCH (09:25)
[2018-03-24] MEDS: DIABETA PO SCH ×3 (09:26→22:10)
[2018-03-24] MEDS: IMDUR PO SCH (09:26)
[2018-03-24] MEDS: PLAVIX PO SCH (09:26)
--- NOTE | 2018-03-24 11:16 | Progress Note ---
Addendum entered and electronically signed by JOON PHIPPS MD 03/24/18 14:17: Medical therapy for chronic stable angina including Ranexa. Original Note: Assessment and Plan Chronic stable angina CAD with history of [place] and PCI Cath 10/2016 - Widely patent prox and mid LAD stent. Medical therapy recommended for small vessel CAD. Echo 10/2016 - normal LVEF MPI 10/2016 - small area of decreased perfusion in the anteroseptal wall with partial improvement at rest MPI 01/2018 showing the same defect noted previously History of TIA and CVA Hyperlipidemia NIDDM Hearing impairment Recommend: Continue medical therapy for chronic stable angina and coronary artery disease. Stable cardiac bailey. Once discharged, patient advised to follow-up with her primary roll weigher at [place]. Subjective Date of service: 03/24/18 Interval history: Patient denies chest pain. Reports she is feeling better. Objective Vital Signs Temp Pulse Pulse Resp BP BP Pulse Ox 03/24/18 08:28 18 03/24/18 08:24 97.9 F 70 16 123/55 96 03/24/18 04:02 98.3 F 69 18 131/62 94 03/24/18 00:07 98.4 F 65 18 101/39 89 03/23/18 22:35 74 18 96 03/23/18 19:50 98.4 F 74 18 122/52 96 03/23/18 19:38 70 03/23/18 19:15 73 03/23/18 18:52 78 03/23/18 18:00 76 03/23/18 16:30 98.6 F 74 18 136/86 97 03/23/18 11:57 65 03/23/18 11:56 65 03/23/18 11:55 65 - Physical Examination General: No Apparent Distress HEENT: Positive: PERRL Neck: Positive: trachea midline Cardiac: Positive: Reg Rate and Rhythm Lungs: Positive: Decreased Breath Sounds Neuro: Positive: Grossly Intact Abdomen: Positive: Active Bowel Sounds Skin: Positive: Clear Extremities: Absent: edema - Labs and Meds Cardiac Enzymes 03/23/18 Range/Units 19:25 CK-MB (CK-2) 1.3 (0.0-4.0) ng/mL
[2018-03-24] MEDS: SODIUM CHLORIDE FLUSH SYRINGE 10 ML IV SCH ×2 (11:52→22:13)
[2018-03-24] MEDS: TOPROL XL PO SCH (11:52)
[2018-03-24] MEDS ORDERED: ATIVAN PO ONE (14:00)
--- NOTE | 2018-03-24 14:03 | Progress Note ---
Assessment and Plan Assessment and plan: 77-year-old man who is well-known to the hospital. She presents with chest pain multiple times. She has been seen by cardiology, was not recommended any further workup or treatment. It is felt that she's malingering to stay in the hospital. . Her medications were optimized for angina, UTI was ruled by negative urine cx. At this point she is ready for discharge. She also has a bed at a residential. But she is refusing discharged stating that she was incontinent today, she states she has chronic incontinence, but does not want to leave the hospital on days when she is incontinent. appeal of her discharge has been done through Medicare Discharge diagnoses Chest pain due to chronic angina cad sp pci dm type 2 htn History Interval history: Review of systems Constitutional: No fevers, no malaise, no joint pains CVS: No chest pain, no orthopnea, no dyspnea on exertion, no pedal edema GI: No abdominal pain, no diarrhea, no vomiting, no constipation Respiratory: No shortness of breath, no wheezing, no coughing Hospitalist Physical - Physical exam Narrative exam: General.: Appears well, no distress, nontoxic HEENT: Moist mucous membranes, extraocular muscles intact, no lymphadenopathy Neck: supple Cardiac: S1-S2 heard Lungs: clear to auscultation bilaterally Abdomen: soft , nontender, nondistended, bowel sounds positive Extremities: no edema clubbing or cyanosis Skin: no rash or lesions Neurologic: no gross focal deficits Psych: calm, and cooperative - Constitutional Vitals: Temp Pulse Resp BP Pulse Ox 98.4 F 75 16 104/53 95 03/24/18 13:41 03/24/18 13:41 03/24/18 13:41 03/24/18 13:41 03/24/18 13:41 General appearance: Present: no acute distress, well-nourished Results - Labs CBC & Chem 7: 03/22/18 05:42 03/22/18 05:42 Labs: Laboratory Last Values WBC 10.1 K/mm3 (4.5-11.0) 03/22/18 05:42 RBC 5.03 M/mm3 (3.65-5.03) 03/22/18 05:42 Hgb 13.8 gm/dl (10.1-14.3) 03/22/18 05:42 Hct 43.0 % (30.3-42.9) H 03/22/18 05:42 MCV 85 fl (79-97) 03/22/18 05:42 MCH 27 pg (28-32) L 03/22/18 05:42 MCHC 32 % (30-34) 03/22/18 05:42 RDW 14.1 % (13.2-15.2) 03/22/18 05:42 Plt Count 420 K/mm3 (140-440) 03/22/18 05:42 Lymph % (Auto) 29.9 % (13.4-35.0) 03/22/18 05:42 [place] % (Auto) 8.6 % (0.0-7.3) H 03/22/18 05:42 Eos % (Auto) 3.6 % (0.0-4.3) 03/22/18 05:42 Baso % (Auto) 0.8 % (0.0-1.8) 03/22/18 05:42 Lymph # 3.0 K/mm3 (1.2-5.4) 03/22/18 05:42 [place] # 0.9 K/mm3 (0.0-0.8) H 03/22/18 05:42 Eos # 0.4 K/mm3 (0.0-0.4) 03/22/18 05:42 Baso # 0.1 K/mm3 (0.0-0.1) 03/22/18 05:42 Seg Neutrophils % 57.1 % (40.0-70.0) 03/22/18 05:42 Seg Neutrophils # 5.8 K/mm3 (1.8-7.7) 03/22/18 05:42 PT 13.3 Sec. (12.2-14.9) 03/21/18 03:26 INR 0.97 (0.87-1.13) 03/21/18 03:26 APTT 25.1 Sec. (24.2-36.6) 03/21/18 03:26 D-Dimer 216.43 ng/mlDDU (0-234) 03/21/18 03:26 Sodium 140 mmol/L (137-145) 03/22/18 05:42 Potassium 4.6 mmol/L (3.6-5.0) 03/22/18 05:42 Chloride 102.6 mmol/L (98-107) 03/22/18 05:42 Carbon Dioxide 24 mmol/L (22-30) 03/22/18 05:42 Anion Gap 18 mmol/L 03/22/18 05:42 BUN 15 mg/dL (7-17) 03/22/18 05:42 Creatinine 0.5 mg/dL (0.7-1.2) L 03/22/18 05:42 Estimated GFR > 60 ml/min 03/22/18 05:42 BUN/Creatinine Ratio 30 % 03/22/18 05:42 Glucose 114 mg/dL (65-100) H 03/22/18 05:42 POC Glucose 169 (70-105) H 03/24/18 11:53 Calcium 8.8 mg/dL (8.4-10.2) 03/22/18 05:42 Total Creatine Kinase 50 units/L (30-135) 03/23/18 19:25 CK-MB (CK-2) 1.3 ng/mL (0.0-4.0) 03/23/18 19:25 CK-MB (CK-2) Rel Index 2.6 (0-4) 03/23/18 19:25 Troponin T < 0.010 ng/mL (0.00-0.029) 03/23/18 19:25 NT-Pro-B Natriuret Pep 33.77 pg/mL (0-900) 03/21/18 03:26 Lipase 26 units/L (13-60) 03/21/18 03:26 Urine Color Yellow (Yellow) 03/21/18 Unknown Urine Turbidity Clear (Clear) 03/21/18 Unknown Urine pH 5.0 (5.0-7.0) 03/21/18 Unknown Ur Specific [place] 1.020 (1.003-1.030) 03/21/18 Unknown Urine Protein <15 mg/dl mg/dL (Negative) 03/21/18 Unknown Urine Glucose (UA) Neg mg/dL (Negative) 03/21/18 Unknown Urine Ketones Neg mg/dL (Negative) 03/21/18 Unknown Urine Blood Neg (Negative) 03/21/18 Unknown Urine Nitrite Neg (Negative) 03/21/18 Unknown Urine Bilirubin Neg (Negative) 03/21/18 Unknown Urine Urobilinogen < 2.0 mg/dL (<2.0) 03/21/18 Unknown Ur Leukocyte Esterase Mod (Negative) 03/21/18 Unknown Urine WBC (Auto) 14.0 /HPF (0.0-6.0) H 03/21/18 Unknown Urine RBC (Auto) 1.0 /HPF (0.0-6.0) 03/21/18 Unknown U Epithel Cells (Auto) 1.0 /HPF (0-13.0) 03/21/18 Unknown Urine Mucus Few /HPF 03/21/18 Unknown
[2018-03-24] MEDS: VISTARIL PO SCH (18:01)
[2018-03-24] MEDS: TRADJENTA PO SCH (18:01)
[2018-03-24] MEDS: LEXAPRO PO SCH (18:01)
[2018-03-24] MEDS: AMBIEN PO PRN (22:09)
[2018-03-24] MEDS: LEVAQUIN PO SCH (22:10)
[2018-03-24] MEDS: SINEquan PO SCH (22:11)
[2018-03-24] MEDS: ARICEPT PO SCH (22:12)
[2018-03-24] MEDS: LOVENOX SUB-Q SCH (22:12)
[2018-03-25] MEDS: TESSALON PERLES PO SCH ×3 (06:52→21:41)
[2018-03-25] MEDS: DIABETA PO SCH ×3 (08:57→21:43)
[2018-03-25] MEDS: BUSPAR PO SCH ×3 (08:57→21:40)
--- NOTE | 2018-03-25 10:31 | Progress Note ---
Assessment and Plan Chronic stable angina CAD with history of [place] and PCI Cath 10/2016 - Widely patent prox and mid LAD stent. Medical therapy recommended for small vessel CAD. Echo 10/2016 - normal LVEF MPI 10/2016 - small area of decreased perfusion in the anteroseptal wall with partial improvement at rest MPI 01/2018 showing the same defect noted previously History of TIA and CVA Hyperlipidemia NIDDM Hearing impairment Recommend: Continue medical therapy for chronic stable angina and coronary artery disease. Stable cardiac bailey. Once discharged, patient advised to follow-up with her primary psychological aide at [place]. Subjective Date of service: 03/25/18 Interval history: Patient denies chest pain. Awaits rehab placement. Objective Vital Signs Temp Pulse Resp BP Pulse Ox 03/25/18 08:07 98.0 F 82 16 132/61 98 03/25/18 04:48 98.4 F 74 18 131/57 93 03/24/18 23:51 98.2 F 72 18 106/41 85 03/24/18 19:23 97.9 F 75 18 100/38 95 03/24/18 19:19 97.9 F 70 18 99/33 87 03/24/18 19:00 69 03/24/18 17:42 97.7 F 84 18 119/64 95 03/24/18 13:41 98.4 F 75 16 104/53 95 - Physical Examination General: No Apparent Distress HEENT: Positive: PERRL Neck: Positive: trachea midline Cardiac: Positive: Reg Rate and Rhythm Lungs: Positive: Decreased Breath Sounds Neuro: Positive: Grossly Intact Abdomen: Positive: Active Bowel Sounds Skin: Positive: Clear Extremities: Absent: edema
[2018-03-25] MEDS: TOPROL XL PO SCH (10:33)
[2018-03-25] MEDS: IMDUR PO SCH (10:34)
[2018-03-25] MEDS: NORVASC PO SCH (10:34)
[2018-03-25] MEDS: PLAVIX PO SCH (10:34)
[2018-03-25] MEDS: RANEXA ER PO SCH ×2 (10:34→21:42)
[2018-03-25] MEDS: BABY ASPIRIN PO SCH (10:34)
[2018-03-25] MEDS: ZESTRIL PO SCH (10:34)
[2018-03-25] MEDS: SODIUM CHLORIDE FLUSH SYRINGE 10 ML IV SCH ×2 (10:36→21:43)
[2018-03-25] MEDS: NITROSTAT SL PRN (11:30)
[2018-03-25] MEDS: MORPHINE IV PRN (11:50)
--- NOTE | 2018-03-25 13:32 | Discharge Summary ---
Providers - Providers Date of Admission: 03/21/18 05:29 Attending physician: LISA PENNINGTON MD 03/21/18 09:08 Consult to Physician [CONS] Routine Comment: Consulting Provider: JOON PHPIPS Physician Instructions: Reason For Exam: Chest pain 03/24/18 12:01 Consult to Mental Health [CONS] Routine Reason For Exam: an[address] Place consult to:: pysc Notified:: y Primary care physician: MARSHA MAXWELL MD Hospitalization Condition: Stable Disposition: DC-30 STILL A PATIENT Core Measure Documentation - Palliative Care Palliative Care/ Comfort Measures: Not Applicable Exam - Constitutional Vitals: Temp Pulse Resp BP Pulse Ox 98.0 F 88 20 126/56 98 03/25/18 08:07 03/25/18 11:30 03/25/18 11:50 03/25/18 11:03 03/25/18 08:07 Plan Follow up with: MARSHA MAXWELL MD [Primary Care Provider] - 3-5 Days
--- NOTE | 2018-03-25 14:15 | Consultation ---
History of Present Illness - Reason for Consult Consult date: 03/25/18 Reason for consult: Initial Psychiatric Evaluation - History of Present Psychiatric Illness Patient is 77-year-old white female with a history of coronary artery disease, hypertension,diabetes and previous stroke. She was just discharged from the hospital 03/12/2018 to residential. She presents with chest pain. Psychiatry was consulted for anxiety. Patient has a PPHx MDD and ARMIDA. She states that her current drug regimen has kept her stable for 5 years. She states " the only time I have depression is when it's situational". Recently patient's cousin and she is missing her daughter who moved to [place] two years ago with her 4 grandchildren. Patient reports appropriate sleep, appetite, energy , and anxious mood/panic attacks. She denies anhedonia. She denies SI/HI's, A/ VH's, and delusions. Although patient is compliant with Lexapro, she states " Zoloft works better for me. It keeps me even. I'm going to start retaking that once I'm discharged. " Throughout the assessment some confusion is noted. Patient gives conflicting responses to questions. Current Psychiatric Medications: Buspar 5mg po TID, Lexapro 20mg po QPM, Vistaril 25mg po QPM. Past Psychiatric History: MDD (2012), ARMIDA(2012); 1 previous inpatient psychiatric hospitalization ( [facility]) - per patient; outpatient psychiatrist - Dr. Jaeger; no previous suicide attempts. Past Psychiatric Medication Trials: Zoloft - ": approximately 5 years" = effective; Xanax " occasionally" Drug/Alcohol Abuse: Patient denies drug/alcohol abuse. Social History: Master's Degree in [employer]; Lives at [facility]; 1 daughter -41 years old; 4 grandchildren; Family History of Psychiatric Illness/Substance Abuse: Patient denies. Medications and Allergies Allergies Allergy/AdvReac Type Severity Reaction Status Date / Time Penicillins Allergy Anaphylaxis Verified 02/12/18 19:14 trazodone Allergy Hives Verified 02/12/18 19:14 Home Medications Medication Instructions Recorded Confirmed Last Taken Type Escitalopram Oxalate [Lexapro] 20 mg PO QPM 02/12/18 03/21/18 Unknown History Melatonin 10 mg PO QHS 02/12/18 03/21/18 Unknown History Sitagliptin Phosphate [Januvia] 50 mg PO QPM 02/12/18 03/21/18 Unknown History amLODIPine [Norvasc] 10 mg PO DAILY 02/12/18 03/21/18 Unknown History busPIRone [Buspar] 5 mg PO TID 02/12/18 03/21/18 Unknown History glyBURIDE [Glyburide] 5 mg PO TID 02/12/18 03/21/18 Unknown History hydrOXYzine pamoate [Hydroxyzine 25 mg PO QPM 02/12/18 03/21/18 Unknown History Pamoate] AtorvaSTATin [Lipitor] 40 mg PO QHS #30 tablet 02/15/18 03/21/18 Unknown Rx Benzonatate [Tessalon Perles] 100 mg PO Q8HR #10 capsule 02/15/18 03/21/18 Unknown Rx Clopidogrel [Plavix] 75 mg PO DAILY 02/26/18 03/21/18 Unknown History Lisinopril [Zestril] 10 mg PO DAILY 30 Days #120 tablet 03/06/18 03/21/18 Unknown Rx Metoprolol Xl [Metoprolol 25 mg PO QDAY #30 tablet 03/06/18 03/21/18 Unknown Rx SUCCINATE ER TAB] Acetaminophen [Acetaminophen TAB] 650 mg PO Q4H PRN 03/21/18 03/21/18 Unknown History Aspirin 81 mg PO DAILY 03/21/18 03/21/18 Unknown History Donepezil [Aricept] 5 mg PO QHS 03/21/18 03/21/18 Unknown History Doxepin HCl 50 mg PO QHS 03/21/18 03/21/18 Unknown History Escitalopram Oxalate [Lexapro] 20 mg PO QPM 03/21/18 03/21/18 Unknown History Active Meds: Active Medications Acetaminophen (Tylenol) 650 mg PO Q4H PRN PRN Reason: Pain Last Admin: 03/21/18 15:00 Dose: 650 mg Documented by: Amlodipine Besylate (Norvasc) 10 mg PO DAILY [facility] Last Admin: 03/25/18 10:34 Dose: 10 mg Documented by: Aspirin (Baby Aspirin) 81 mg PO DAILY [facility] Last Admin: 03/25/18 10:34 Dose: 81 mg Documented by: Atorvastatin Calcium (Lipitor) 40 mg PO QHS [facility] Last Admin: 03/24/18 22:11 Dose: 40 mg Documented by: Benzonatate (Tessalon Perles) 100 mg PO Q8HR [facility] Last Admin: 03/25/18 06:52 Dose: 100 mg Documented by: Buspirone HCl (Buspar) 5 mg PO TID [facility] Last Admin: 03/25/18 08:57 Dose: 5 mg Documented by: Clopidogrel Bisulfate (Plavix) 75 mg PO DAILY [facility] Last Admin: 03/25/18 10:34 Dose: 75 mg Documented by: Donepezil HCl (Aricept) 5 mg PO QHS [facility] Last Admin: 03/24/18 22:12 Dose: 5 mg Documented by: Doxepin HCl (Sinequan) 50 mg PO QHS [facility] Last Admin: 03/24/18 22:11 Dose: 50 mg Documented by: Enoxaparin Sodium (Lovenox) 40 mg SUB-Q QDAY@2200 [facility] Last Admin: 03/24/18 22:12 Dose: 40 mg Documented by: Escitalopram Oxalate (Lexapro) 20 mg PO QPM [facility] Last Admin: 03/24/18 18:01 Dose: 20 mg Documented by: Glyburide (Diabeta) 5 mg PO TID [facility] Last Admin: 03/25/18 08:57 Dose: 5 mg Documented by: Hydroxyzine Pamoate (Vistaril) 25 mg PO QPM [facility] Last Admin: 03/24/18 18:01 Dose: 25 mg Documented by: Isosorbide Mononitrate (Imdur) 30 mg PO QDAY [facility] Last Admin: 03/25/18 10:34 Dose: 30 mg Documented by: Levofloxacin (Levaquin) 500 mg PO Q24HR@2000 [facility] Last Admin: 03/24/18 22:10 Dose: 500 mg Documented by: Linagliptin (Tradjenta) 5 mg PO DAILY@1800 [facility] Last Admin: 03/24/18 18:01 Dose: 5 mg Documented by: Lisinopril (Zestril) 10 mg PO DAILY [facility] Last Admin: 03/25/18 10:34 Dose: 10 mg Documented by: Metoprolol Succinate (Toprol Xl) 25 mg PO QDAY [facility] Last Admin: 03/25/18 10:33 Dose: 25 mg Documented by: Morphine Sulfate (Morphine) 2 mg IV Q4H PRN PRN Reason: Pain, Moderate (4-6) Last Admin: 03/25/18 11:50 Dose: 2 mg Documented by: Nitroglycerin (Nitrostat) 0.4 mg SL .Q5MIN PRN PRN Reason: Chest Pain Last Admin: 03/25/18 11:30 Dose: 0.4 mg Documented by: Ondansetron HCl (Zofran) 4 mg IV Q8H PRN PRN Reason: Nausea And Vomiting Ranolazine (Ranexa Er) 500 mg PO BID [facility] Last Admin: 03/25/18 10:34 Dose: 500 mg Documented by: Sodium Chloride (Sodium Chloride Flush Syringe 10 Ml) 10 ml IV BID [facility] Last Admin: 03/25/18 10:36 Dose: Not Given Documented by: Sodium Chloride (Sodium Chloride Flush Syringe 10 Ml) 10 ml IV PRN PRN PRN Reason: LINE FLUSH Zolpidem Tartrate (Ambien) 10 mg PO QHS PRN PRN Reason: Sleep Last Admin: 03/24/18 22:09 Dose: 10 mg Documented by: Mental Status Exam - Vital signs Last Vital Signs Temp 98.0 F 03/25/18 08:07 Pulse 88 03/25/18 11:30 Resp 20 03/25/18 11:50 BP 126/56 03/25/18 11:03 Pulse Ox 98 03/25/18 08:07 - Exam Narrative exam: Mental Status Exam Appearance: calm, cooperative Behavior: regular eye contact Speech: regular rate with a low tone Mood: "normal"; depressed/anxious Affect: congruent with mood Thought Process: circumstantial Thought Content: denies SI/HI's, AVH's, and delusions Motor Activity:lying in bed Cognition: A/O x3 Insight: fair to variable Judgment: fair Results Result Diagrams: 03/22/18 05:42 03/22/18 05:42 Abnormal lab results 03/24/18 03/25/18 Range/Units 16:16 11:09 POC Glucose 141 H 177 H (70-105) All other labs normal. Assessment and Plan Assessment and plan: Impression: PPHx MDD and ARMIDA. Today the patient is cooperative but anxious du ring the assessment. She denies SI/HI's, A/VH's, and delusions. DDx: R/O Bipolar DO Recommendation/Plan: 1. Will reassess in 24 hours. 2. Increase Buspar 7.5mg po TID anxiety. 3. Discontinue Lexapro. 4. Start Zoloft 25mg po QAM depression/anxiety. Discussed possible suicidality/medication induced jeanna with the patient reference Zoloft. 5. Will monitor mood, sleep, appetite, compliance, and side effects. Disposition: Will attempt to gain collateral to determine proper disposition. Will staff with Dr. Lenore Pitts.
--- NOTE | 2018-03-25 15:07 | Progress Note ---
Assessment and Plan Assessment and plan: 77-year-old man who is well-known to the hospital. She presents with chest pain multiple times. She has been seen by cardiology, was not recommended any further workup or treatment. It is felt that she's malingering to stay in the hospital. . Her medications were optimized for angina, UTI was ruled by negative urine cx. At this point she is ready for discharge. [facility]. But she is refusing discharge. appeal of her discharge has been done through Medicare Discharge diagnoses Chest pain due to chronic angina cad sp pci dm type 2 htn History Interval history: Review of systems Constitutional: No fevers, no malaise, no joint pains CVS: No chest pain, no orthopnea, no dyspnea on exertion, no pedal edema GI: No abdominal pain, no diarrhea, no vomiting, no constipation Respiratory: No shortness of breath, no wheezing, no coughing Hospitalist Physical - Physical exam Narrative exam: General.: Appears well, no distress, nontoxic HEENT: Moist mucous membranes, extraocular muscles intact, no lymphadenopathy Neck: supple Cardiac: S1-S2 heard Lungs: clear to auscultation bilaterally Abdomen: soft , nontender, nondistended, bowel sounds positive Extremities: no edema clubbing or cyanosis Skin: no rash or lesions Neurologic: no gross focal deficits Psych: calm, and cooperative - Constitutional Vitals: Temp Pulse Resp BP Pulse Ox 98.0 F 88 20 126/56 98 03/25/18 08:07 03/25/18 11:30 03/25/18 11:50 03/25/18 11:03 03/25/18 08:07 General appearance: Present: no acute distress, well-nourished Results - Labs CBC & Chem 7: 03/22/18 05:42 03/22/18 05:42 Labs: Laboratory Last Values WBC 10.1 K/mm3 (4.5-11.0) 03/22/18 05:42 RBC 5.03 M/mm3 (3.65-5.03) 03/22/18 05:42 Hgb 13.8 gm/dl (10.1-14.3) 03/22/18 05:42 Hct 43.0 % (30.3-42.9) H 03/22/18 05:42 MCV 85 fl (79-97) 03/22/18 05:42 MCH 27 pg (28-32) L 03/22/18 05:42 MCHC 32 % (30-34) 03/22/18 05:42 RDW 14.1 % (13.2-15.2) 03/22/18 05:42 Plt Count 420 K/mm3 (140-440) 03/22/18 05:42 Lymph % (Auto) 29.9 % (13.4-35.0) 03/22/18 05:42 [place] % (Auto) 8.6 % (0.0-7.3) H 03/22/18 05:42 Eos % (Auto) 3.6 % (0.0-4.3) 03/22/18 05:42 Baso % (Auto) 0.8 % (0.0-1.8) 03/22/18 05:42 Lymph # 3.0 K/mm3 (1.2-5.4) 03/22/18 05:42 [place] # 0.9 K/mm3 (0.0-0.8) H 03/22/18 05:42 Eos # 0.4 K/mm3 (0.0-0.4) 03/22/18 05:42 Baso # 0.1 K/mm3 (0.0-0.1) 03/22/18 05:42 Seg Neutrophils % 57.1 % (40.0-70.0) 03/22/18 05:42 Seg Neutrophils # 5.8 K/mm3 (1.8-7.7) 03/22/18 05:42 PT 13.3 Sec. (12.2-14.9) 03/21/18 03:26 INR 0.97 (0.87-1.13) 03/21/18 03:26 APTT 25.1 Sec. (24.2-36.6) 03/21/18 03:26 D-Dimer 216.43 ng/mlDDU (0-234) 03/21/18 03:26 Sodium 140 mmol/L (137-145) 03/22/18 05:42 Potassium 4.6 mmol/L (3.6-5.0) 03/22/18 05:42 Chloride 102.6 mmol/L (98-107) 03/22/18 05:42 Carbon Dioxide 24 mmol/L (22-30) 03/22/18 05:42 Anion Gap 18 mmol/L 03/22/18 05:42 BUN 15 mg/dL (7-17) 03/22/18 05:42 Creatinine 0.5 mg/dL (0.7-1.2) L 03/22/18 05:42 Estimated GFR > 60 ml/min 03/22/18 05:42 BUN/Creatinine Ratio 30 % 03/22/18 05:42 Glucose 114 mg/dL (65-100) H 03/22/18 05:42 POC Glucose 177 (70-105) H 03/25/18 11:09 Calcium 8.8 mg/dL (8.4-10.2) 03/22/18 05:42 Total Creatine Kinase 50 units/L (30-135) 03/23/18 19:25 CK-MB (CK-2) 1.3 ng/mL (0.0-4.0) 03/23/18 19:25 CK-MB (CK-2) Rel Index 2.6 (0-4) 03/23/18 19:25 Troponin T < 0.010 ng/mL (0.00-0.029) 03/23/18 19:25 NT-Pro-B Natriuret Pep 33.77 pg/mL (0-900) 03/21/18 03:26 Lipase 26 units/L (13-60) 03/21/18 03:26 Urine Color Yellow (Yellow) 03/21/18 Unknown Urine Turbidity Clear (Clear) 03/21/18 Unknown Urine pH 5.0 (5.0-7.0) 03/21/18 Unknown Ur Specific [place] 1.020 (1.003-1.030) 03/21/18 Unknown Urine Protein <15 mg/dl mg/dL (Negative) 03/21/18 Unknown Urine Glucose (UA) Neg mg/dL (Negative) 03/21/18 Unknown Urine Ketones Neg mg/dL (Negative) 03/21/18 Unknown Urine Blood Neg (Negative) 03/21/18 Unknown Urine Nitrite Neg (Negative) 03/21/18 Unknown Urine Bilirubin Neg (Negative) 03/21/18 Unknown Urine Urobilinogen < 2.0 mg/dL (<2.0) 03/21/18 Unknown Ur Leukocyte Esterase Mod (Negative) 03/21/18 Unknown Urine WBC (Auto) 14.0 /HPF (0.0-6.0) H 03/21/18 Unknown Urine RBC (Auto) 1.0 /HPF (0.0-6.0) 03/21/18 Unknown U Epithel Cells (Auto) 1.0 /HPF (0-13.0) 03/21/18 Unknown Urine Mucus Few /HPF 03/21/18 Unknown
[2018-03-25] MEDS: TRADJENTA PO SCH (17:27)
[2018-03-25] MEDS: LEXAPRO PO SCH (17:27)
[2018-03-25] MEDS: VISTARIL PO SCH (17:27)
[2018-03-25] MEDS: LOVENOX SUB-Q SCH (21:39)
[2018-03-25] MEDS: SINEquan PO SCH (21:42)
[2018-03-25] MEDS: ARICEPT PO SCH (21:43)
[2018-03-25] MEDS ORDERED: AMBIEN PO ONE (22:50)
[2018-03-26] MEDS: TESSALON PERLES PO SCH ×3 (06:28→22:01)
--- NOTE | 2018-03-26 08:58 | Progress Note ---
Addendum entered and electronically signed by JOON PHIPPS MD 03/26/18 11:05: Medical therapy for chronic stable angina pectoris, okay for cardiac discharge and outpatient follow-up. Original Note: Assessment and Plan Chronic stable angina CAD with history of NE and PCI Cath 10/2016 - Widely patent prox and mid LAD stent. Medical therapy recommended for small vessel CAD. Echo 10/2016 - normal LVEF MPI 10/2016 - small area of decreased perfusion in the anteroseptal wall with partial improvement at rest MPI 01/2018 showing the same defect noted previously History of TIA and CVA Hyperlipidemia NIDDM Hearing impairment Recommend: Continue medical therapy for chronic stable angina and coronary artery disease. Stable cardiac bailey. Once discharged, patient advised to follow-up with her primary business education instructor at [place]. Subjective Date of service: 03/26/18 Interval history: Patient denies chest pain. She has no cardiac complaints. Awaits rehab placement. Objective Vital Signs Temp Pulse Resp BP Pulse Ox 03/26/18 07:21 98.9 F 72 20 100/65 91 03/26/18 01:43 97.8 F 58 L 20 98/46 91 03/25/18 19:43 97.4 F L 69 14 120/54 95 03/25/18 19:00 74 03/25/18 16:56 67 18 111/48 95 03/25/18 16:55 98.1 F 03/25/18 11:50 20 03/25/18 11:30 88 03/25/18 11:03 16 126/56 03/25/18 10:34 125/44 03/25/18 10:33 805 H 125/44 - Physical Examination General: No Apparent Distress HEENT: Positive: PERRL Neck: Positive: trachea midline Cardiac: Positive: Reg Rate and Rhythm Lungs: Positive: Decreased Breath Sounds Neuro: Positive: Grossly Intact Abdomen: Positive: Active Bowel Sounds Skin: Positive: Clear Musculoskeletal: No Pain, Normal Range of Motion Extremities: Absent: edema
[2018-03-26] MEDS: IMDUR PO SCH (09:00)
[2018-03-26] MEDS: NORVASC PO SCH (09:00)
[2018-03-26] MEDS: ZESTRIL PO SCH (09:00)
[2018-03-26] MEDS: TOPROL XL PO SCH (09:00)
[2018-03-26] MEDS: ZOLOFT PO SCH (09:32)
[2018-03-26] MEDS: RANEXA ER PO SCH ×2 (09:32→22:02)
[2018-03-26] MEDS: PLAVIX PO SCH (09:32)
[2018-03-26] MEDS: BABY ASPIRIN PO SCH (09:32)
[2018-03-26] MEDS: SODIUM CHLORIDE FLUSH SYRINGE 10 ML IV SCH ×2 (10:12→22:03)
[2018-03-26] MEDS: BUSPAR PO SCH ×3 (10:12→22:02)
[2018-03-26] MEDS: DIABETA PO SCH ×3 (10:12→22:02)
--- NOTE | 2018-03-26 12:41 | Progress Note ---
Subjective - Reason for Consult Consult date: 03/26/18 Reason for consult: Psychiatry Follow-up - Chief Complaint Chief complaint: "I'm much much better" 77-year-old white female with a history of coronary artery disease, hypertension,diabetes and previous stroke. She was just discharged from the hospital 03/12/2018 to skilled nursing. Today the patient is calm and cooperative during the assessment. She stated that all her medications are managed by her PCP. She stated that she prefer to continue to allow her PCP to manage her medications. She was able to ID the past/current [place] Presidents and state her . She was able to say why she was brought to the hospital when asked. She denies being anxious and depression. She denies SI/HI's and AVH's. She denies any side effects of her medications. Mental Status Exam - Vital signs Last Vital Signs Temp 98.9 F 03/26/18 07:21 Pulse 72 03/26/18 07:21 Resp 20 03/26/18 07:21 BP 100/65 03/26/18 07:21 Pulse Ox 91 03/26/18 07:21 - Exam Narrative exam: MSE: Appearance: calm, cooperative Behavior: regular eye contact Speech: regular rate and tone Mood: "okay" Affect: congruent to mood Thought Process: logical Thought Content: denies SI/HI's and AVH's Motor Activity: sitting up in bed Cognition: A/O x3 Insight: fair Judgment: fair Assessment and Plan Impression: MDD. ARMIDA. Today the patient is calm and cooperative during the assessment. DDx: R/O Bipolar DO Recommendation/Plan: Continue Buspar 7.5 mg PO TID for anxiety and Zoloft 25 mg PO daily for depression/anxiety. Discussed possible suicidality/medication induced jeanna with the patient reference Zoloft. Psy sign off. Dispo: The patient can follow up with her PCP for outpatient psy services and medication management. Staffed with Dr Schulte.
--- NOTE | 2018-03-26 14:45 | Progress Note ---
Assessment and Plan Assessment and plan: 77-year-old man who is well-known to the hospital. She presents with chest pain multiple times. She has been seen by cardiology, was not recommended any further workup or treatment. It is felt that she's malingering to stay in the hospital. . Her medications were optimized for angina, UTI was ruled by negative urine cx. At this point she is ready for discharge. She also has a bed at a [place] [facility]. But she is refusing discharge. appeal of her discharge has been done through Medicare Discharge diagnoses Chest pain due to chronic angina cad sp pci dm type 2 htn History Interval history: Review of systems Constitutional: No fevers, no malaise, no joint pains CVS: No chest pain, no orthopnea, no dyspnea on exertion, no pedal edema GI: No abdominal pain, no diarrhea, no vomiting, no constipation Respiratory: No shortness of breath, no wheezing, no coughing Hospitalist Physical - Physical exam Narrative exam: General.: Appears well, no distress, nontoxic HEENT: Moist mucous membranes, extraocular muscles intact, no lymphadenopathy Neck: supple Cardiac: S1-S2 heard Lungs: clear to auscultation bilaterally Abdomen: soft , nontender, nondistended, bowel sounds positive Extremities: no edema clubbing or cyanosis Skin: no rash or lesions Neurologic: no gross focal deficits Psych: calm, and cooperative - Constitutional Vitals: Temp Pulse Resp BP Pulse Ox 98.0 F 76 20 121/55 92 03/26/18 13:33 03/26/18 13:33 03/26/18 13:33 03/26/18 13:33 03/26/18 13:33 General appearance: Present: no acute distress, well-nourished Results - Labs CBC & Chem 7: 03/22/18 05:42 03/22/18 05:42 Labs: Laboratory Last Values WBC 10.1 K/mm3 (4.5-11.0) 03/22/18 05:42 RBC 5.03 M/mm3 (3.65-5.03) 03/22/18 05:42 Hgb 13.8 gm/dl (10.1-14.3) 03/22/18 05:42 Hct 43.0 % (30.3-42.9) H 03/22/18 05:42 MCV 85 fl (79-97) 03/22/18 05:42 MCH 27 pg (28-32) L 03/22/18 05:42 MCHC 32 % (30-34) 03/22/18 05:42 RDW 14.1 % (13.2-15.2) 03/22/18 05:42 Plt Count 420 K/mm3 (140-440) 03/22/18 05:42 Lymph % (Auto) 29.9 % (13.4-35.0) 03/22/18 05:42 [place] % (Auto) 8.6 % (0.0-7.3) H 03/22/18 05:42 Eos % (Auto) 3.6 % (0.0-4.3) 03/22/18 05:42 Baso % (Auto) 0.8 % (0.0-1.8) 03/22/18 05:42 Lymph # 3.0 K/mm3 (1.2-5.4) 03/22/18 05:42 [place] # 0.9 K/mm3 (0.0-0.8) H 03/22/18 05:42 Eos # 0.4 K/mm3 (0.0-0.4) 03/22/18 05:42 Baso # 0.1 K/mm3 (0.0-0.1) 03/22/18 05:42 Seg Neutrophils % 57.1 % (40.0-70.0) 03/22/18 05:42 Seg Neutrophils # 5.8 K/mm3 (1.8-7.7) 03/22/18 05:42 PT 13.3 Sec. (12.2-14.9) 03/21/18 03:26 INR 0.97 (0.87-1.13) 03/21/18 03:26 APTT 25.1 Sec. (24.2-36.6) 03/21/18 03:26 D-Dimer 216.43 ng/mlDDU (0-234) 03/21/18 03:26 Sodium 140 mmol/L (137-145) 03/22/18 05:42 Potassium 4.6 mmol/L (3.6-5.0) 03/22/18 05:42 Chloride 102.6 mmol/L (98-107) 03/22/18 05:42 Carbon Dioxide 24 mmol/L (22-30) 03/22/18 05:42 Anion Gap 18 mmol/L 03/22/18 05:42 BUN 15 mg/dL (7-17) 03/22/18 05:42 Creatinine 0.5 mg/dL (0.7-1.2) L 03/22/18 05:42 Estimated GFR > 60 ml/min 03/22/18 05:42 BUN/Creatinine Ratio 30 % 03/22/18 05:42 Glucose 114 mg/dL (65-100) H 03/22/18 05:42 POC Glucose 228 (70-105) H 03/26/18 11:26 Calcium 8.8 mg/dL (8.4-10.2) 03/22/18 05:42 Total Creatine Kinase 50 units/L (30-135) 03/23/18 19:25 CK-MB (CK-2) 1.3 ng/mL (0.0-4.0) 03/23/18 19:25 CK-MB (CK-2) Rel Index 2.6 (0-4) 03/23/18 19:25 Troponin T < 0.010 ng/mL (0.00-0.029) 03/23/18 19:25 NT-Pro-B Natriuret Pep 33.77 pg/mL (0-900) 03/21/18 03:26 Lipase 26 units/L (13-60) 03/21/18 03:26 Urine Color Yellow (Yellow) 03/21/18 Unknown Urine Turbidity Clear (Clear) 03/21/18 Unknown Urine pH 5.0 (5.0-7.0) 03/21/18 Unknown Ur Specific [place] 1.020 (1.003-1.030) 03/21/18 Unknown Urine Protein <15 mg/dl mg/dL (Negative) 03/21/18 Unknown Urine Glucose (UA) Neg mg/dL (Negative) 03/21/18 Unknown Urine Ketones Neg mg/dL (Negative) 03/21/18 Unknown Urine Blood Neg (Negative) 03/21/18 Unknown Urine Nitrite Neg (Negative) 03/21/18 Unknown Urine Bilirubin Neg (Negative) 03/21/18 Unknown Urine Urobilinogen < 2.0 mg/dL (<2.0) 03/21/18 Unknown Ur Leukocyte Esterase Mod (Negative) 03/21/18 Unknown Urine WBC (Auto) 14.0 /HPF (0.0-6.0) H 03/21/18 Unknown Urine RBC (Auto) 1.0 /HPF (0.0-6.0) 03/21/18 Unknown U Epithel Cells (Auto) 1.0 /HPF (0-13.0) 03/21/18 Unknown Urine Mucus Few /HPF 03/21/18 Unknown
[2018-03-26] MEDS: TRADJENTA PO SCH (17:56)
[2018-03-26] MEDS: VISTARIL PO SCH (17:56)
[2018-03-26] MEDS: LOVENOX SUB-Q SCH (22:01)
[2018-03-26] MEDS: ARICEPT PO SCH (22:01)
[2018-03-26] MEDS: SINEquan PO SCH (22:03)
[2018-03-26] MEDS ORDERED: AMBIEN PO PRN (22:59)
[2018-03-27] MEDS: TESSALON PERLES PO SCH ×2 (06:23→14:02)
--- NOTE | 2018-03-27 07:37 | Progress Note ---
Assessment and Plan Assessment and plan: 77-year-old man who is well-known to the hospital. She presents with chest pain multiple times. She has been seen by cardiology, was not recommended any further workup or treatment. It is felt that she's malingering to stay in the hospital. . Her medications were optimized for angina, UTI was ruled by negative urine cx. At this point she is ready for discharge. She also has a bed at a care home. But she is refusing discharge. appeal of her discharge has been done through Medicare Discharge diagnoses Chest pain due to chronic angina cad sp pci dm type 2 htn History Interval history: Review of systems Constitutional: No fevers, no malaise, no joint pains CVS: No chest pain, no orthopnea, no dyspnea on exertion, no pedal edema GI: No abdominal pain, no diarrhea, no vomiting, no constipation Respiratory: No shortness of breath, no wheezing, no coughing Hospitalist Physical - Physical exam Narrative exam: General.: Appears well, no distress, nontoxic HEENT: Moist mucous membranes, extraocular muscles intact, no lymphadenopathy Neck: supple Cardiac: S1-S2 heard Lungs: clear to auscultation bilaterally Abdomen: soft , nontender, nondistended, bowel sounds positive Extremities: no edema clubbing or cyanosis Skin: no rash or lesions Neurologic: no gross focal deficits Psych: calm, and cooperative - Constitutional Vitals: Temp Pulse Resp BP Pulse Ox 98.1 F 76 18 126/58 97 03/26/18 19:59 03/26/18 20:15 03/26/18 20:26 03/26/18 19:59 03/26/18 19:59 General appearance: Present: no acute distress, well-nourished Results - Labs CBC & Chem 7: 03/22/18 05:42 03/22/18 05:42 Labs: Laboratory Last Values WBC 10.1 K/mm3 (4.5-11.0) 03/22/18 05:42 RBC 5.03 M/mm3 (3.65-5.03) 03/22/18 05:42 Hgb 13.8 gm/dl (10.1-14.3) 03/22/18 05:42 Hct 43.0 % (30.3-42.9) H 03/22/18 05:42 MCV 85 fl (79-97) 03/22/18 05:42 MCH 27 pg (28-32) L 03/22/18 05:42 MCHC 32 % (30-34) 03/22/18 05:42 RDW 14.1 % (13.2-15.2) 03/22/18 05:42 Plt Count 420 K/mm3 (140-440) 03/22/18 05:42 Lymph % (Auto) 29.9 % (13.4-35.0) 03/22/18 05:42 [place] % (Auto) 8.6 % (0.0-7.3) H 03/22/18 05:42 Eos % (Auto) 3.6 % (0.0-4.3) 03/22/18 05:42 Baso % (Auto) 0.8 % (0.0-1.8) 03/22/18 05:42 Lymph # 3.0 K/mm3 (1.2-5.4) 03/22/18 05:42 [place] # 0.9 K/mm3 (0.0-0.8) H 03/22/18 05:42 Eos # 0.4 K/mm3 (0.0-0.4) 03/22/18 05:42 Baso # 0.1 K/mm3 (0.0-0.1) 03/22/18 05:42 Seg Neutrophils % 57.1 % (40.0-70.0) 03/22/18 05:42 Seg Neutrophils # 5.8 K/mm3 (1.8-7.7) 03/22/18 05:42 PT 13.3 Sec. (12.2-14.9) 03/21/18 03:26 INR 0.97 (0.87-1.13) 03/21/18 03:26 APTT 25.1 Sec. (24.2-36.6) 03/21/18 03:26 D-Dimer 216.43 ng/mlDDU (0-234) 03/21/18 03:26 Sodium 140 mmol/L (137-145) 03/22/18 05:42 Potassium 4.6 mmol/L (3.6-5.0) 03/22/18 05:42 Chloride 102.6 mmol/L (98-107) 03/22/18 05:42 Carbon Dioxide 24 mmol/L (22-30) 03/22/18 05:42 Anion Gap 18 mmol/L 03/22/18 05:42 BUN 15 mg/dL (7-17) 03/22/18 05:42 Creatinine 0.5 mg/dL (0.7-1.2) L 03/22/18 05:42 Estimated GFR > 60 ml/min 03/22/18 05:42 BUN/Creatinine Ratio 30 % 03/22/18 05:42 Glucose 114 mg/dL (65-100) H 03/22/18 05:42 POC Glucose 140 (70-105) H 03/26/18 21:44 Calcium 8.8 mg/dL (8.4-10.2) 03/22/18 05:42 Total Creatine Kinase 50 units/L (30-135) 03/23/18 19:25 CK-MB (CK-2) 1.3 ng/mL (0.0-4.0) 03/23/18 19:25 CK-MB (CK-2) Rel Index 2.6 (0-4) 03/23/18 19:25 Troponin T < 0.010 ng/mL (0.00-0.029) 03/23/18 19:25 NT-Pro-B Natriuret Pep 33.77 pg/mL (0-900) 03/21/18 03:26 Lipase 26 units/L (13-60) 03/21/18 03:26 Urine Color Yellow (Yellow) 03/21/18 Unknown Urine Turbidity Clear (Clear) 03/21/18 Unknown Urine pH 5.0 (5.0-7.0) 03/21/18 Unknown Ur Specific [place] 1.020 (1.003-1.030) 03/21/18 Unknown Urine Protein <15 mg/dl mg/dL (Negative) 03/21/18 Unknown Urine Glucose (UA) Neg mg/dL (Negative) 03/21/18 Unknown Urine Ketones Neg mg/dL (Negative) 03/21/18 Unknown Urine Blood Neg (Negative) 03/21/18 Unknown Urine Nitrite Neg (Negative) 03/21/18 Unknown Urine Bilirubin Neg (Negative) 03/21/18 Unknown Urine Urobilinogen < 2.0 mg/dL (<2.0) 03/21/18 Unknown Ur Leukocyte Esterase Mod (Negative) 03/21/18 Unknown Urine WBC (Auto) 14.0 /HPF (0.0-6.0) H 03/21/18 Unknown Urine RBC (Auto) 1.0 /HPF (0.0-6.0) 03/21/18 Unknown U Epithel Cells (Auto) 1.0 /HPF (0-13.0) 03/21/18 Unknown Urine Mucus Few /HPF 03/21/18 Unknown
[2018-03-27] MEDS: BUSPAR PO SCH ×3 (07:43→22:09)
[2018-03-27] MEDS: DIABETA PO SCH ×2 (07:43→14:02)
[2018-03-27] MEDS: ZOLOFT PO SCH (09:39)
[2018-03-27] MEDS: BABY ASPIRIN PO SCH (09:39)
[2018-03-27] MEDS: RANEXA ER PO SCH (09:39)
[2018-03-27] MEDS: TOPROL XL PO SCH (09:39)
[2018-03-27] MEDS: SODIUM CHLORIDE FLUSH SYRINGE 10 ML IV SCH (09:39)
[2018-03-27] MEDS: PLAVIX PO SCH (09:39)
[2018-03-27] MEDS: NORVASC PO SCH (09:40)
[2018-03-27] MEDS: IMDUR PO SCH (09:40)
[2018-03-27] MEDS: ZESTRIL PO SCH (09:40)
--- NOTE | 2018-03-27 11:06 | Progress Note ---
Addendum entered and electronically signed by ISMAEL GARG MD 03/27/18 11:08: Agree with [facility] assessment and plan Cardiology will sign off Original Note: Assessment and Plan Chronic stable angina CAD with history of [place] and PCI Cath 10/2016 - Widely patent prox and mid LAD stent. Medical therapy recommended for small vessel CAD. Echo 10/2016 - normal LVEF MPI 10/2016 - small area of decreased perfusion in the anteroseptal wall with partial improvement at rest MPI 01/2018 showing the same defect noted previously History of TIA and CVA Hyperlipidemia NIDDM Hearing impairment Recommend: Continue medical therapy for chronic stable angina and coronary artery disease. Stable cardiac bailey. Once discharged, patient advised to follow-up with her primary clinical services assistant at [place]. We will sign off. Subjective Date of service: 03/27/18 Interval history: Patient is resting in bed comfortably. She has no cardiac complaints. Objective Vital Signs Temp Pulse Resp BP Pulse Ox 03/27/18 09:40 79 115/53 03/27/18 09:39 79 115/53 03/27/18 07:42 98.6 F 79 20 138/63 91 03/26/18 20:26 18 03/26/18 20:15 76 03/26/18 19:59 98.1 F 76 18 126/58 97 03/26/18 13:33 98.0 F 76 20 121/55 92 - Physical Examination General: No Apparent Distress HEENT: Positive: PERRL Neck: Positive: trachea midline Cardiac: Positive: Reg Rate and Rhythm Lungs: Positive: Decreased Breath Sounds Neuro: Positive: Grossly Intact Abdomen: Positive: Active Bowel Sounds Extremities: Absent: edema
--- NOTE | 2018-03-27 16:47 | Discharge Summary ---
Providers - Providers Date of Admission: 03/21/18 05:29 Attending physician: LISA PENNINGTON MD 03/24/18 12:01 Consult to Mental Health [CONS] Routine Reason For Exam: [address] Place consult to:: adama Notified:: y Primary care physician: MARSHA MAXWELL MD Hospitalization Condition: Stable Hospital course: 77-year-old man who is well-known to the hospital. She presents with chest pain multiple times. She has been seen by cardiology, was not recommended any further workup or treatment. It is felt that she's malingering to stay in the hospital. . Her medications were optimized for angina, UTI was ruled by negative urine cx. Per her request, a bed at a custodial was organized for her. But she refused discharge, appeal of her discharge has been done through Medicare, who upheld the decision to dc her. She was dc to [facility] Discharge diagnoses Chest pain due to chronic angina cad sp pci dm type 2 htn Disposition: DC/[place]-03 SNF [facility] CERT Time spent for discharge: 33 minutes Core Measure Documentation - Palliative Care Palliative Care/ Comfort Measures: Not Applicable - Core Measures Any of the following diagnoses?: none Exam - Constitutional Vitals: Temp Pulse Resp BP Pulse Ox 97.8 F 75 18 145/72 92 03/27/18 13:14 03/27/18 13:14 03/27/18 13:14 03/27/18 13:14 03/27/18 13:14 General appearance: Present: no acute distress, well-nourished - EENT Eyes: Present: PERRL ENT: hearing intact, clear oral mucosa - Neck Neck: Present: supple, normal ROM - Respiratory Respiratory effort: normal Respiratory: bilateral: CTA - Cardiovascular Heart Sounds: Present: S1 & S2. Absent: rub, click - Extremities Extremities: pulses symmetrical, No edema Peripheral Pulses: within normal limits - Abdominal General gastrointestinal: Present: soft, non-tender, non-distended, normal bowel sounds Female genitourinary: Present: normal - Integumentary Integumentary: Present: clear, warm, dry - Musculoskeletal Musculoskeletal: gait normal, strength equal bilaterally - Psychiatric Psychiatric: appropriate mood/affect, intact judgment & insight - Neurologic Neurologic: CNII-XII intact, moves all extremities Plan Follow up with: PRIMARY CARE, [Primary Care Provider] - 3-5 Days
[2018-03-27] MEDS: VISTARIL PO SCH (17:03)
[2018-03-27] MEDS: TRADJENTA PO SCH (17:03)
[2018-03-28] MEDS: BUSPAR PO SCH (08:46)
[2018-03-28] MEDS: DIABETA PO SCH (08:46)
[2018-03-28] MEDS: PLAVIX PO SCH (09:46)
[2018-03-28] MEDS: RANEXA ER PO SCH (09:46)
[2018-03-28] MEDS: BABY ASPIRIN PO SCH (09:47)
[2018-03-28] MEDS: ZOLOFT PO SCH (09:47)
[2018-03-28] MEDS: TOPROL XL PO SCH (09:48)
[2018-03-28] MEDS: ZESTRIL PO SCH (09:48)
[2018-03-28] MEDS: IMDUR PO SCH (09:48)
[2018-03-28] MEDS: NORVASC PO SCH (09:49)
[2018-03-28] MEDS: SODIUM CHLORIDE FLUSH SYRINGE 10 ML IV SCH (09:51)
[2018-03-28 13:19] VITALS: BP 110/56
== END 2018-03-28 13:25 | DRG 303 ==
LOC: SUATTDRO 01:27 → ED 01:27 → 4A 05:29 → 2B-ACE 03-25 23:13
PROVIDERS: ADMIT Internal Medicine; ATTEND Internal Medicine
DX: I25.118 Atherosclerotic heart disease of native coronary artery with other forms of angina pectoris (principal); F32.9 Major depressive disorder, single episode, unspecified; E11.9 Type 2 diabetes mellitus without complications; Z21 Asymptomatic human immunodeficiency virus [HIV] infection status; R62.7 Adult failure to thrive; F41.1 Generalized anxiety disorder; I10 Essential (primary) hypertension; Z86.73 Personal history of transient ischemic attack (TIA), and cerebral infarction without residual deficits; Z82.49 Family history of ischemic heart disease and other diseases of the circulatory system; Z95.5 Presence of coronary angioplasty implant and graft; Z88.0 Allergy status to penicillin; Z88.6 Allergy status to analgesic agent; Z79.82 Long term (current) use of aspirin; I25.2 Old myocardial infarction; Z79.84 Long term (current) use of oral hypoglycemic drugs
CPT/HCPCS: 36415; 70450; 71045; 80048; 81001; 82550; 82553; 82962; 83690; 83880; 84484; 85025; 85379; 85610; 85730; 87086; 93005; 93010; G0378; A9270-GY; J1650; J1956; J2270; Q0177

== ENCOUNTER 2018-06-03 15:59 | Inpatient (IN) | payer MEDICARE ==
--- NOTE | 2018-06-03 16:21 | Emergency Department Report ---
HPI - General Time Seen by Provider: 06/03/18 16:14 - HPI HPI: Room 19 The patient is 77-year-old female presenting with a chief complaint of left- sided weakness and syncope. The patient is a [facility] resident and states at approximately 13:45-14:15 she developed blurred vision and then noticed pain and numbness on her left upper extremity and left lower extremity. Patient states she began having difficulty speaking and then began to feel dizzy. Patient states she then had a syncopal episode rolling off the sofa onto the floor. 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 Location: [See above] Duration: [See above] Quality: Numbness weakness pain Severity: Moderate Modifying factors: [see above] Context: [see above] Mode of transportation: [not driving] ED Past Medical Hx - Past Medical History Hx Hypertension: Yes Hx CVA: Yes Hx Heart Attack/AMI: Yes Hx Diabetes: Yes Hx COPD: Yes Hx HIV: Yes - Surgical History Hx Coronary Stent: Yes Additional Surgical History: Cardia stent placement X4 - Family History Family history: no significant - Social History Smoking Status: Never Smoker Substance Use Type: Alcohol (rarely) - Medications Home Medications: Home Medications Medication Instructions Recorded Confirmed Last Taken Type Escitalopram Oxalate [Lexapro] 20 mg PO QPM 02/12/18 03/21/18 Unknown History Melatonin 10 mg PO QHS 02/12/18 03/21/18 Unknown History Sitagliptin Phosphate [Januvia] 50 mg PO QPM 02/12/18 03/21/18 Unknown History amLODIPine [Norvasc] 10 mg PO DAILY 02/12/18 03/21/18 Unknown History busPIRone [Buspar] 5 mg PO TID 02/12/18 03/21/18 Unknown History glyBURIDE [Glyburide] 5 mg PO TID 02/12/18 03/21/18 Unknown History hydrOXYzine pamoate [Hydroxyzine 25 mg PO QPM 02/12/18 03/21/18 Unknown History Pamoate] AtorvaSTATin [Lipitor] 40 mg PO QHS #30 tablet 02/15/18 03/21/18 Unknown Rx Benzonatate [Tessalon Perles] 100 mg PO Q8HR #10 capsule 02/15/18 03/21/18 Unknown Rx Clopidogrel [Plavix] 75 mg PO DAILY 02/26/18 03/21/18 Unknown History Lisinopril [Zestril] 10 mg PO DAILY 30 Days #120 tablet 03/06/18 03/21/18 Unkn own Rx Metoprolol Xl [Metoprolol 25 mg PO QDAY #30 tablet 03/06/18 03/21/18 Unknown Rx SUCCINATE ER TAB] Acetaminophen [Acetaminophen TAB] 650 mg PO Q4H PRN 03/21/18 03/21/18 Unknown History Aspirin 81 mg PO DAILY 03/21/18 03/21/18 Unknown History Donepezil [Aricept] 5 mg PO QHS 03/21/18 03/21/18 Unknown History Doxepin HCl 50 mg PO QHS 03/21/18 03/21/18 Unknown History Escitalopram Oxalate [Lexapro] 20 mg PO QPM 03/21/18 03/21/18 Unknown History ISOSORBIDE MONOnitrate [Imdur ER] 30 mg PO QDAY tablet 03/27/18 Unknown Rx Linagliptin [Tradjenta] 5 mg PO DAILY@1800 tablet 03/27/18 Unknown Rx Ranolazine ER [Ranexa ER] 500 mg PO BID tablet 03/27/18 Unknown Rx Sertraline [Zoloft] 25 mg PO QDAY tablet 03/27/18 Unknown Rx busPIRone [Buspar] 7.5 mg PO TID tablet 03/27/18 Unknown Rx ED Review of Systems ROS: Stated complaint: WEAKNESS Other details as noted in HPI Constitutional: no symptoms reported Eyes: vision change ENT: denies: throat pain Respiratory: no symptoms reported Cardiovascular: denies: chest pain Endocrine: no symptoms reported Gastrointestinal: denies: abdominal pain Genitourinary: denies: dysuria Musculoskeletal: myalgia Neurological: weakness, paresthesias Physical Exam - Physical Exam Physical Exam: GENERAL: The patient is well-developed well-nourished female lying on stretcher not appearing to be in acute distress. [] HEENT: Normocephalic. Atraumatic. Extraocular motions are intact. Patient has moist mucous membranes. NECK: Supple. Trachea midline CHEST/LUNGS: Clear to auscultation. There is no respiratory distress noted. HEART/CARDIOVASCULAR: Regular. There is no tachycardia. There is no gallop rub or murmur. ABDOMEN: Abdomen is soft, nontender. Patient has normal bowel sounds. There is no abdominal distention. SKIN: There is no rash. There is no edema. There is no diaphoresis. NEURO: The patient is awake, alert, and oriented. The patient is cooperative. Cranial nerves II through XII grossly intact, no drift. 4+/5+ left frog catcher. 5+/5+ right frog catcher. The patient has occasional difficulty with fluency of speech. Patient exhibits weakness flexing left lower extremity at the hip and knee MUSCULOSKELETAL: There is no evidence of acute injury. NIHSS= 3 LOC a. Alert= 0 Not alert but arousable to minor stimuli=1 Not alert requires repeated or strong stimuli to move= 2 Responds only reflex motor or unresponsive=3 b. asks month and age answers both correctly= 0 answers one correctly= 1 answers neither correctly= 2 Best Gaze normal= 0 abnormal in one or both but forced deviation or total paresis absent= 1 forced deviation or total gaze paresis= 2 Visual no visual loss= 0 partial hemianopia= 1 complete hemianopia= 2 bilateral hemianopia= 3 Facial Palsy normal= 0 minor paralysis= 1 partial paralysis= 2 complete paralysis= 3 Motor Arm no drift= 0 drift before 10 secs but doesnt hit bed= 1 some effort against gravity= 2 no effort against gravity= 3 no movement= 4 Motor leg no drift= 0 drift before 5 secs but doesnt hit bed= 1 drifts to bed before 5 secs= 2 no effort against gravity= 3 no movement= 4 Limb ataxia absent=0 present in one limb= 1 present in two limbs= 2 Sensory normal= 0 (+)mild sensory loss= 1 severe (unaware of being touched)= 2 Best language mild/some loss of fluency= 1 severe= 2 mute= 3 Dysarthria normal= 0 (+)slurs some words= 1 severe/unintelligible= 2 Extinction and Inattention no abnormality= 0 visual, tactile, auditory or personal inattention= 1 profound (doesnt recognize own hand or orients to only one side= 2 ED Course - Reevaluation(s) Reevaluation #1: 06/03/18 17:25 The patient has changed her mind and states she does not wish to have TPA - Consultations Consultation #1: 06/03/18 16:24 Tele-neurology paged 06/03/18 16:[address] Rojas 06/03/18 17:[address] Rojas recommends administering TPA 06/03/18 17:26 Tele-neurology paged ED Medical Decision Making - Lab Data Result diagrams: 06/03/18 16:15 06/03/18 16:15 - EKG Data -: EKG Interpreted by Me EKG shows normal: sinus rhythm Rate: normal - EKG Data When compared to previous EKG there are: no significant change Interpretation: unchanged when compared t (03/25/2018), nonspecific ST-T wave subhash (T-wave inversion in lead V2) - Radiology Data Radiology results: report reviewed (CT head), image reviewed (CT head) [facility] [address] [place] [address] Cat Scan Report Signed Patient: EFRAIN ARMENDARIZ MR#: [id number] : 1940 Acct:[id number] Age/Sex: 77 / F ADM Date: 06/03/18 Loc: ED Attending Dr: Ordering Physician: ZULEIMA ASHRAF MD Date of Service: 06/03/18 Procedure(s): CT head/brain wo con Accession Number(s): [id number] cc: ZULEIMA ASHRAF MD PROCEDURE: CT HEAD/BRAIN WO CON TECHNIQUE spiral imaging of the brain was obtained without use of IV contrast.: HISTORY: left-sided weakness, syncope COMPARISONS: Prior CT scan of brain 03/21/2018 FINDINGS: Brain: There is no evidence of intracranial hemorrhage. No parenchymal hemorrhage is seen. No mass lesions or mass effect is identified. No abnormal extra-axial fluid collections or masses are seen. There is an old lacunar infarct in the left caudate nucleus. Small old lacunar infarcts also appear to be visualized in the left basal ganglia. There is some decreased density seen in the periventricular white matter without mass effect. This is fairly symmetric and does not exhibit any mass effect consistent with gliosis probably on the basis of microvascular disease or white matter changes of aging. Ventricles: The ventricles, sulcal pattern and fissures are prominent consistent with atrophy. Bone Windows: No evidence of fracture. Paranasal sinuses: Clear. Mastoid air cells: There is increased density throughout the mastoid air cells and right middle ear suggesting mastoiditis and otitis media. IMPRESSION: No acute intracranial abnormalities are identified. There is evidence of atrophy, gliosis and old lacunar infarcts. If clinical symptoms are persisting or worsening consider follow-up CT scan or MRI for further evaluation. There is evidence of mastoiditis and otitis media on the right. This was seen on the prior study. This document is electronically signed by Amadeo Gillespie MD., June 03 2018 04:58:01 PM ET Transcribed By: DFN Dictated By: AMADEO GILLESPIE MD Electronically Authenticated By: AMADEO GILLESPIE MD Signed Date/Time: 06/03/18 1700 DD/ 37 TD/TT: 06/03/181637 - Differential Diagnosis CVA, TIA, CHF Critical care attestation.: If time is entered above; I have spent that time in minutes in the direct care of this critically ill patient, excluding procedure time. ED Disposition Clinical Impression: CVA (cerebral vascular accident) Disposition: -09 OP ADMIT IP TO THIS HOSP Is pt being admited?: Yes Does the pt Need Aspirin: Yes Condition: Serious Referrals: MARK WHITEHEAD MD [Primary Care Provider] - 3-5 Days Time of Disposition: 17:19 (hospitalist notified)
[2018-06-03 16:25] LABS: Basophils # (Auto) 0.1 K/mm3 (0.0-0.1); Basophils % (Auto) 0.8 % (0.0-1.8); Eosinophils # (Auto) 0.3 K/mm3 (0.0-0.4); Eosinophils % (Auto) 2.8 % (0.0-4.3); Hematocrit 38.9 % (30.3-42.9); Hemoglobin 12.8 gm/dl (10.1-14.3); Lymphocytes # (Auto) 3.1 K/mm3 (1.2-5.4); Lymphocytes % (Auto) 33.1 % (13.4-35.0); Mean Corpuscular HGB Conc 33 % (30-34); Mean Corpuscular Volume 84 fl (79-97); Monocytes # (Auto) 0.8 K/mm3 (0.0-0.8); Monocytes % (Auto) 9.1 % (0.0-7.3); Platelet Count 408 K/mm3 (140-440); Red Blood Count 4.61 M/mm3 (3.65-5.03); Red Cell Distribution Width 17.2 % (13.2-15.2)
[2018-06-03 16:43] LABS: BUN/Creatinine Ratio 15; Blood Urea Nitrogen 12 mg/dL (7-17); Calcium 8.7 mg/dL (8.4-10.2); Hemolysis Index 6; Thrombin Time 17.1 Sec. (15.1-19.6)
--- NOTE | 2018-06-03 17:00 | Cat Scan Report ---
PROCEDURE: CT HEAD/BRAIN WO CON TECHNIQUE spiral imaging of the brain was obtained without use of IV contrast.: HISTORY: left-sided weakness, syncope COMPARISONS: Prior CT scan of brain 03/21/2018 FINDINGS: Brain: There is no evidence of intracranial hemorrhage. No parenchymal hemorrhage is seen. No mass lesions or mass effect is identified. No abnormal extra-axial fluid collections or masses are seen. There is an old lacunar infarct in the left caudate nucleus. Small old lacunar infarcts also appear t o be visualized in the left basal ganglia. There is some decreased density seen in the periventricular white matter without mass effect. This i s fairly symmetric and does not exhibit any mass effect consistent with gliosis probably on the basis of microvascular disease or white matter changes of aging. Ventricles: The ventricles, sulcal pattern and fissures are prominent consistent with atrophy. Bone Windows: No evidence of fracture. Paranasal sinuses: Clear. Mastoid air cells: There is increased density throughout the mastoid air cells and right middle ear suggesting mastoiditis and otitis media. IMPRESSION: No acute intracranial abnormalities are identified. There is evidence of atrophy, gliosis and old lacunar infarcts. If clinical symptoms are persisting o r worsening consider follow-up CT scan or MRI for further evaluation. There is evidence of mastoiditis and otitis media on the right. This was seen on the prior study. This document is electronically signed by Amadeo Parson MD., June 03 2018 04:58:01 PM ET
[2018-06-03] MEDS ORDERED: ACTIVASE IV ONE ×2 (17:17)
[2018-06-03] MEDS ORDERED: NACL 0.9% IV ONE (17:17)
--- NOTE | 2018-06-03 18:36 | History and Physical Report ---
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 Pt states that she experienced and acute onset of blurred vision, numbness and weakness to her Left upper and lower extremity. Pt also reports that she experienced slurred speech as well as feeling dizzy which subsequently resulted in a loss of consciousness. EMS notified, and upon arrival the patient was found to be in distress. Pt transported to [facility]. Pt seen and evaluated in ED and found to have symptoms consistent with CVA. Teleneurology consulted and recommended TPA. Pt declined TPA. Pt admitted to telemetry and initiated on CVA protocol. Pt denies fever, chills, CP, Palpitations, NVD, Trauma, BRBPR, Productive Cough, Skin rash, unintentional weight loss,night sweats. Pt admitted on 03/21/18. All listed medication reconciled at time of admission. Past History Past Medical History: acute [place], CAD, diabetes, stroke Past Surgical History: , Other (cardiac stent placement) Social history: single. denies: smoking, alcohol abuse, prescription drug abuse Family history: CAD, hypertension Medications and Allergies Allergies Allergy/AdvReac Type Severity Reaction Status Date / Time Penicillins Allergy Anaphylaxis Verified 02/12/18 19:14 trazodone Allergy Hives Verified 02/12/18 19:14 Home Medications Medication Instructions Recorded Confirmed Last Taken Type Escitalopram Oxalate [Lexapro] 20 mg PO QPM 02/12/18 03/21/18 Unknown History Melatonin 10 mg PO QHS 02/12/18 03/21/18 Unknown History Sitagliptin Phosphate [Januvia] 50 mg PO QPM 02/12/18 03/21/18 Unknown History amLODIPine [Norvasc] 10 mg PO DAILY 02/12/18 03/21/18 Unknown History busPIRone [Buspar] 5 mg PO TID 02/12/18 03/21/18 Unknown History glyBURIDE [Glyburide] 5 mg PO TID 02/12/18 03/21/18 Unknown History hydrOXYzine pamoate [Hydroxyzine 25 mg PO QPM 02/12/18 03/21/18 Unknown History Pamoate] AtorvaSTATin [Lipitor] 40 mg PO QHS #30 tablet 02/15/18 03/21/18 Unknown Rx Benzonatate [Tessalon Perles] 100 mg PO Q8HR #10 capsule 02/15/18 03/21/18 Unknown Rx Clopidogrel [Plavix] 75 mg PO DAILY 02/26/18 03/21/18 Unknown History Lisinopril [Zestril] 10 mg PO DAILY 30 Days #120 tablet 03/06/18 03/21/18 Unknown Rx Metoprolol Xl [Metoprolol 25 mg PO QDAY #30 tablet 03/06/18 03/21/18 Unknown Rx SUCCINATE ER TAB] Acetaminophen [Acetaminophen TAB] 650 mg PO Q4H PRN 03/21/18 03/21/18 Unknown History Aspirin 81 mg PO DAILY 03/21/18 03/21/18 Unknown History Donepezil [Aricept] 5 mg PO QHS 03/21/18 03/21/18 Unknown History Doxepin HCl 50 mg PO QHS 03/21/18 03/21/18 Unknown History Escitalopram Oxalate [Lexapro] 20 mg PO QPM 03/21/18 03/21/18 Unknown History ISOSORBIDE MONOnitrate [Imdur ER] 30 mg PO QDAY tablet 03/27/18 Unknown Rx Linagliptin [Tradjenta] 5 mg PO DAILY@1800 tablet 03/27/18 Unknown Rx Ranolazine ER [Ranexa ER] 500 mg PO BID tablet 03/27/18 Unknown Rx Sertraline [Zoloft] 25 mg PO QDAY tablet 03/27/18 Unknown Rx busPIRone [Buspar] 7.5 mg PO TID tablet 03/27/18 Unknown Rx Review of Systems Constitutional: no weight loss, no weight gain, no fever, no chills Ears, nose, mouth and throat: no ear pain, no ear discharge, no tinnitis, no decreased hearing, no nose pain Breasts: no change in shape, no swelling, no mass Cardiovascular: no chest pain, no orthopnea, no palpitations, no rapid/irregular heart beat Respiratory: no cough, no cough with sputum, no excessive sputum, no hemoptysis, no shortness of breath Gastrointestinal: no nausea, no vomiting, no diarrhea, no constipation Genitourinary Female: no pelvic pain, no flank pain, no menorrhagia, no dysuria, no urinary frequency Menstruation: no currently menstrual, no premenarcheal, no post hysterectomy, no ammenorrhea Rectal: no pain, no incontinence, no bleeding Musculoskeletal: no neck stiffness, no neck pain, no shooting arm pain, no arm numbness/tingling, no low back pain Integumentary: no rash, no pruritis, no redness, no sores, no wounds Neurological: transient paralysis, weakness, change in speech, balance difficulties, gait dysfunction, motor disturbance, no parathesias, no numbness, no tingling, no seizures Psychiatric: no anxiety, no memory loss, no change in sleep habits, no sleep disturbances, no insomnia, no hypersomnia Endocrine: no cold intolerance, no heat intolerance, no polyphagia, no excessive thirst, no polydipsia, no polyuria Hematologic/Lymphatic: no easy bruising, no easy bleeding, no lymphadenopathy, no lymphedema Allergic/Immunologic: no urticaria, no allergic rhinitis, no wheezing Exam - Constitutional Vitals: Temp Pulse Resp BP Pulse Ox 68 21 138/64 93 06/03/18 17:30 06/03/18 17:30 06/03/18 17:30 06/03/18 16:05 General appearance: Present: no acute distress, well-nourished - EENT Eyes: Present: PERRL ENT: hearing intact, clear oral mucosa - Neck Neck: Present: supple, normal ROM - Respiratory Respiratory effort: normal Respiratory: bilateral: CTA - Cardiovascular Heart Sounds: Present: S1 & S2. Absent: rub, click - Extremities Extremities: pulses symmetrical, No edema Peripheral Pulses: within normal limits - Abdominal General gastrointestinal: Present: soft, non-tender, non-distended, normal bowel sounds Female genitourinary: Present: normal - Integumentary Integumentary: Present: clear, warm, dry - Musculoskeletal Musculoskeletal: gait normal, strength equal bilaterally - Psychiatric Psychiatric: appropriate mood/affect, intact judgment & insight - Neurologic Neurologic: CNII-XII intact, moves all extremities Results - Labs CBC & Chem 7: 06/03/18 16:15 06/03/18 16:15 Labs: Abnormal lab results 06/03/18 06/03/18 06/03/18 Range/Units 16:11 16:15 16:15 RDW 17.2 H (13.2-15.2) % [place] % (Auto) 9.1 H (0.0-7.3) % Glucose 237 H (65-100) mg/dL POC Glucose 214 H (70-105) Assessment and Plan - Patient Problems (1) CVA (cerebral vascular accident) Current Visit: Yes Status: Acute Qualifiers: Precerebral and cerebral artery: middle cerebral artery Laterality of affected vessel: right Plan to address problem: CVA Protocol: Admit to telemetry, CT head, MRI Brain, MRA Brain, Teleneurology consulted in ED, Neurology consulted, Echo, Carotid doppler, Neuro checks, seizure precautions, DAPT, Statin therapy, lipid panel, PT/OT/Speech Therapy. TPA recommended by teleneurology, but Pt declined TPA (2) Diabetes Current Visit: Yes Status: Acute Plan to address problem: ADA diet, insulin, accu check, oral antihyperglycemic medication held at admission,resume at discharge. (3) CAD (coronary artery disease) Current Visit: No Status: Acute Qualifiers: Coronary Disease-Associated Artery/Lesion type: [place] artery [place] vs. transplanted heart: [place] heart Associated angina: angina presence unspecified Qualified Code(s): I25.10 - Atherosclerotic heart disease of [place] coronary artery without angina pectoris Plan to address problem: Statin therapy, risk factor reduction therapy, low cholesterol diet. (4) Hypertension Current Visit: No Status: Chronic Qualifiers: Hypertension type: essential hypertension Qualified Code(s): I10 - Essential (primary) hypertension Plan to address problem: Monitor bp q shift, permissive hypertension overnight. (5) COPD (chronic obstructive pulmonary disease) Current Visit: Yes Status: Acute Qualifiers: COPD type: chronic bronchitis Plan to address problem: supplemental oxygen, nebulizer therapy, NIPPV as clinically indicated, (6) DVT prophylaxis Current Visit: No Status: Acute Plan to address problem: SCD to BLE while in bed.
[2018-06-03] MEDS ORDERED: TYLENOL PO PRN (18:37)
[2018-06-03] MEDS ORDERED: PROVENTIL IH PRN (18:37)
[2018-06-03] MEDS ORDERED: DULCOLAX PR PRN (18:37)
[2018-06-03] MEDS ORDERED: MILK OF MAGNESIA PO PRN (18:37)
[2018-06-03] MEDS ORDERED: SODIUM CHLORIDE FLUSH SYRINGE 10 ML IV PRN (18:37)
[2018-06-03] MEDS ORDERED: REGLAN PO PRN (18:37)
[2018-06-03] MEDS ORDERED: PHENERGAN PR PRN (18:37)
[2018-06-03] MEDS ORDERED: ZOFRAN IV PRN (18:37)
[2018-06-03] MEDS ORDERED: D50W (25GM) Syringe IV PRN (18:41)
[2018-06-03 19:26] LABS: INR 0.97 (0.87-1.13)
[2018-06-03] MEDS: BUSPAR PO SCH (20:00)
[2018-06-03] MEDS ORDERED: PERCOCET 5/325 PO ONE (20:26)
[2018-06-03] MEDS ORDERED: ATIVAN ONE (20:37)
[2018-06-03] MEDS ORDERED: MORPHINE ONE (20:37)
[2018-06-03] MEDS: ATIVAN IV PRN (20:49)
[2018-06-03] MEDS: MORPHINE IV PRN (20:49)
[2018-06-03] MEDS ORDERED: NON-FORMULARY (Melatonin [Melatonin] 10 MG) PO SCH (22:00)
[2018-06-03] MEDS ORDERED: DOXEPIN HCL 50 MG PO SCH (22:00)
[2018-06-03] MEDS: HumaLOG SUB-Q SCH (22:00)
--- NOTE | 2018-06-03 22:11 | Cat Scan Report ---
PROCEDURE: CT ANGIO HEAD TECHNIQUE: Computerized tomographic angiography of the head and neck was performed after the IV inje ction of iodinated nonionic contrast including image processing. The image data was postprocessed usi 2-dimensional multiplanar reformatted (MPR) and 3-dimensional (MIP and/or volume rendered) techniq ues. Coronal and sagittal reconstructed imaging provided.. The image data was postprocessed using 2-d imensional multiplanar reformatted (MPR) and 3-dimensional (MIP and/or volume rendered) techniques. C oronal and sagittal reconstructed imaging provided. CT DOSE LENGTH PRODUCT: 2149.58 mGy-cm. HISTORY: left-sided numbness and weakness COMPARISONS: CT head June 03, 2018. FINDINGS: HEAD: Carotid Siphon: Mild to moderate disease. Anterior Cerebral: Unremarkable. Middle Cerebral: Unremarkable. Posterior Cerebral: Unremarkable. Basilar: Unremarkable. Intracranial Vertebral Arteries: Mild disease at the mid right intracranial vertebral. Left is unrema rkable. There is no aneurysm, dissection, vascular malformation, or significant vascular stenosis. There is n o evidence for vasculitis. NECK: Note: Assessment of carotid artery stenosis is based on measurement of the distal internal carotid a rtery diameter as the denominator for stenosis calculations and the [place] Symptomatic Caroti d Endarterectomy Trial (NASCET) stenosis criteria. RIGHT CAROTID: Origin: Unremarkable. Common: Mild plaque at the proximal portion. Bifurcation: Mild disease. Internal: Retropharyngeal at the proximal half. Mild disease at the midportion. Distal portions unrem arkable. External: 70-80% narrowing at the proximal portion from soft plaque. There is no aneurysm, dissection, or vascular malformation. There is no evidence for vasculitis. LEFT CAROTID: Origin: Unremarkable. Common: Mild to moderate disease at the midsection. Bifurcation: Mild disease. Internal: Retropharyngeal at the proximal half. Mild disease at the proximal segment. External: Mild to moderate disease at the origin. Remainder of the vessels are patent with contrast. There is no aneurysm, dissection, vascular malformation, or significant vascular stenosis. There is n o evidence for vasculitis. EXTRACRANIAL VERTEBRALS: Mild to moderate disease near the ring of C1 on the right. Mild disease in the right vertebral at the C3 level. 30-40 % narrowing at the origin of the left vertebral artery. Right is dominant. There is no aneurysm, dissection, vascular malformation, or significant vascular stenosis. There is n o evidence for vasculitis. OTHER: Partially imaged thoracic aorta does not demonstrate any aneurysm or dissection. Major branch arterie s are are patent. Mild to moderate aortic atherosclerotic disease. Mild disease at the major branch v essels. IMPRESSION: * Scattered mild to moderate disease. * 70-80% narrowing at the proximal right ECA. * 30-40% narrowing at the origin of left vertebral artery. * Otherwise, unremarkable CTA of the head and neck. This document is electronically signed by Yomi Jhaveri MD., June 03 2018 10:09:41 PM ET
[2018-06-03] MEDS: ARICEPT PO SCH (23:06)
[2018-06-03] MEDS: PEPCID PO SCH (23:06)
[2018-06-03] MEDS: RANEXA ER PO SCH (23:07)
[2018-06-03] MEDS: SINEquan PO SCH (23:07)
[2018-06-03] MEDS: TESSALON PERLES PO SCH (23:07)
[2018-06-04] MEDS: MORPHINE IV PRN ×4 (02:41→20:40)
[2018-06-04] MEDS: TESSALON PERLES PO SCH ×3 (06:26→22:05)
[2018-06-04 06:52] LABS: Chol/HDL Ratio 3.55 %
[2018-06-04] MEDS: HumaLOG SUB-Q SCH ×4 (12:01→23:02)
[2018-06-04] MEDS: TOPROL XL PO SCH (12:07)
[2018-06-04] MEDS: ZESTRIL PO SCH (12:07)
[2018-06-04] MEDS: BUSPAR PO SCH ×3 (12:08→20:40)
[2018-06-04] MEDS: PEPCID PO SCH ×2 (12:08→22:05)
[2018-06-04] MEDS: PLAVIX PO SCH (12:08)
[2018-06-04] MEDS: RANEXA ER PO SCH ×2 (12:08→22:06)
[2018-06-04] MEDS: ASPIRIN PO SCH (12:08)
[2018-06-04] MEDS: ZOLOFT PO SCH (12:09)
--- NOTE | 2018-06-04 14:09 | Magnetic Resonance Report ---
MRI OF THE BRAIN WITHOUT CONTRAST: HISTORY: Stroke PROCEDURE: Multiplanar, multisequence MR imaging of the brain without IV contrast was performed. FINDINGS: Mild diffuse cortical volume loss and mild nonspecific chronic white matter changes are identified. The remaining brain parenchyma is within normal limits. No evidence for acute ischemia, hemorrhage or mass. No chronic infarct or extra-axial fluid collection. The midline structures are central. The basal cisterns are patent. Normal ventricular size. The orbital cavities and sella turcica demonstrate no abnormality. The visualized paranasal sinuses and mastoid air cells are well aerated. IMPRESSION: No acute intracranial process. Volume loss. Mild nonspecific chronic white matter changes.
--- NOTE | 2018-06-04 14:12 | Magnetic Resonance Report ---
MRA HEAD WITHOUT CONTRAST HISTORY: Stroke. [id number] imaging with MIP reformations of the [place] is submitted. The distal internal carotid arteries, anterior cerebral arteries and middle cerebral arteries are widely patent with no evidence for stenosis or occlusion. The right vertebral artery is dominant. The vertebral arteries, basilar artery and left [employer] are widely patent. There is a focal area of moderate narrowing in the right [employer] with stenosis estimated at 50-75%. No evidence for aneurysm or dissection. IMPRESSION: No large vessel occlusion is identified. Moderate atherosclerotic narrowing in the right posterior cerebral artery.
--- NOTE | 2018-06-04 14:21 | Progress Note ---
Assessment and Plan Assessment and plan: CVA with left-sided weakness. Await neurology evaluation. MRI of brain shows no acute findings. MRA brain reveals no evidence of aneurysm or dissection but moderate atherosclerotic narrowing in the right posterior cerebral artery. Echocardiogram revealed global left ventricular systolic function that is normal with EF of 55-60% and mild concentric left ventricular hypertrophy. No thromboembolic source reported. Carotid Dopplers pending. Continue DAPT, Statin therapy, lipid panel, PT/OT/Speech Therapy. Diabetes mellitus type 2. Continue Accu-Cheks and sliding scale insulin. 1800 ADA diet. CAD. Continue current medications. Hypertension. Continue antihypertensive medications. COPD. Compensated. Continue bronchodilators and nebulizer treatments. History Interval history: No new issues overnight. Patient still with left-sided weakness. Hospitalist Physical - Constitutional Vitals: Temp Pulse Resp BP Pulse Ox 98.0 F 66 15 134/59 96 06/04/18 03:42 06/04/18 05:10 06/04/18 08:27 06/04/18 03:42 06/04/18 12:45 General appearance: Present: no acute distress, well-nourished - EENT Eyes: Present: PERRL, EOM intact ENT: hearing intact, clear oral mucosa, dentition normal - Neck Neck: Present: supple, normal ROM - Respiratory Respiratory effort: normal Respiratory: bilateral: CTA - Cardiovascular Rhythm: regular Heart Sounds: Present: S1 & S2. Absent: gallop, rub - Extremities Extremities: no ischemia, No edema, Full ROM - Abdominal General gastrointestinal: soft, non-tender, non-distended, normal bowel sounds - Integumentary Integumentary: Present: clear, warm, dry - Neurologic Neurologic: CNII-XII intact, moves all extremities Results - Labs CBC & Chem 7: 06/03/18 16:15 06/03/18 16:15 Labs: Laboratory Last Values WBC 9.4 K/mm3 (4.5-11.0) 06/03/18 16:15 RBC 4.61 M/mm3 (3.65-5.03) 06/03/18 16:15 Hgb 12.8 gm/dl (10.1-14.3) 06/03/18 16:15 Hct 38.9 % (30.3-42.9) 06/03/18 16:15 MCV 84 fl (79-97) 06/03/18 16:15 MCH 28 pg (28-32) 06/03/18 16:15 MCHC 33 % (30-34) 06/03/18 16:15 RDW 17.2 % (13.2-15.2) H 06/03/18 16:15 Plt Count 408 K/mm3 (140-440) 06/03/18 16:15 Lymph % (Auto) 33.1 % (13.4-35.0) 06/03/18 16:15 [place] % (Auto) 9.1 % (0.0-7.3) H 06/03/18 16:15 Eos % (Auto) 2.8 % (0.0-4.3) 06/03/18 16:15 Baso % (Auto) 0.8 % (0.0-1.8) 06/03/18 16:15 Lymph # 3.1 K/mm3 (1.2-5.4) 06/03/18 16:15 [place] # 0.8 K/mm3 (0.0-0.8) 06/03/18 16:15 Eos # 0.3 K/mm3 (0.0-0.4) 06/03/18 16:15 Baso # 0.1 K/mm3 (0.0-0.1) 06/03/18 16:15 Seg Neutrophils % 54.2 % (40.0-70.0) 06/03/18 16:15 Seg Neutrophils # 5.1 K/mm3 (1.8-7.7) 06/03/18 16:15 PT 13.5 Sec. (12.2-14.9) 06/03/18 16:15 INR 0.97 (0.87-1.13) 06/03/18 16:15 APTT 26.0 Sec. (24.2-36.6) 06/03/18 16:15 Thrombin Time 17.1 Sec. (15.1-19.6) 06/03/18 16:15 Sodium 137 mmol/L (137-145) 06/03/18 16:15 Potassium 4.0 mmol/L (3.6-5.0) 06/03/18 16:15 Chloride 100.7 mmol/L (98-107) 06/03/18 16:15 Carbon Dioxide 25 mmol/L (22-30) 06/03/18 16:15 Anion Gap 15 mmol/L 06/03/18 16:15 BUN 12 mg/dL (7-17) 06/03/18 16:15 Creatinine 0.8 mg/dL (0.7-1.2) 06/03/18 16:15 Estimated GFR > 60 ml/min 06/03/18 16:15 BUN/Creatinine Ratio 15 % 06/03/18 16:15 Glucose 237 mg/dL (65-100) H 06/03/18 16:15 POC Glucose 157 (70-105) H 06/04/18 11:52 Calcium 8.7 mg/dL (8.4-10.2) 06/03/18 16:15 Troponin T < 0.010 ng/mL (0.00-0.029) 06/03/18 16:15 Triglycerides 189 mg/dL (2-149) H 06/04/18 05:20 Cholesterol 135 mg/dL (50-199) 06/04/18 05:20 LDL Cholesterol Direct 79 mg/dL (50-130) 06/04/18 05:20 HDL Cholesterol 38 mg/dL (40-59) L 06/04/18 05:20 Cholesterol/HDL Ratio 3.55 % 06/04/18 05:20 Active Medications - Current Medications Current Medications: Generic Name Dose Route Start Last Admin Trade Name Freq PRN Reason Stop Dose Admin Acetaminophen 650 mg 06/03/18 18:37 Tylenol PO Q4H PRN Pain, Mild (1-3) Albuterol 2.5 mg 06/03/18 18:37 Proventil IH Q3HRT PRN Shortness Of Breath Aspirin 325 mg 06/04/18 10:00 06/04/18 12:08 Aspirin PO 325 mg QDAY RYAN Administration Atorvastatin Calcium 40 mg 06/03/18 22:00 06/03/18 23:06 Lipitor PO 40 mg QHS RYAN Administration Benzonatate 100 mg 06/03/18 22:00 06/04/18 06:26 Tessalon Perles PO 100 mg Q8HR RYAN Administration Bisacodyl 10 mg 06/03/18 18:37 Dulcolax ID QDAY PRN Constipation Buspirone HCl 5 mg 06/03/18 20:00 06/04/18 12:08 Buspar PO Not Given TID RYAN Clopidogrel Bisulfate 75 mg 03/21/19 10:00 06/04/18 12:08 Plavix PO 75 mg DAILY [facility] Administration Dextrose 50 ml 06/03/18 18:41 D50w (25gm) Syringe IV PRN PRN Hypoglycemia Donepezil HCl 5 mg 06/03/18 22:00 06/03/18 23:06 Aricept PO 5 mg QHS [facility] Administration Doxepin HCl 50 mg 06/03/18 22:00 06/03/18 23:07 Sinequan PO 50 mg QHS [facility] Administration Famotidine 10 mg 06/03/18 22:00 06/04/18 12:08 Pepcid PO 10 mg BID [facility] Administration Hydroxyzine Pamoate 25 mg 06/04/18 18:00 Vistaril PO QPM [facility] Insulin Human Lispro 0 unit 06/03/18 22:00 06/04/18 13:55 Humalog SUB-Q 3 unit ACHS [facility] Administration Protocol Lisinopril 10 mg 06/04/18 10:00 06/04/18 12:07 Zestril PO 10 mg DAILY [facility] Administration Lorazepam 1 mg 06/03/18 20:30 06/03/18 20:49 Ativan IV 1 mg Q4H PRN Administration Agitation Magnesium Hydroxide 30 ml 06/03/18 18:37 Milk Of Magnesia PO Q4H PRN Constipation Metoclopramide HCl 10 mg 06/03/18 18:37 Reglan PO Q6H PRN Nausea And Vomiting Metoprolol Succinate 25 mg 06/04/18 10:00 06/04/18 12:07 Toprol Xl PO 25 mg QDAY [facility] Administration Miscellaneous Medication 10 mg 06/03/18 22:00 Melatonin [Melatonin] PO QHS [facility] Morphine Sulfate 2 mg 06/03/18 20:30 06/04/18 08:27 Morphine IV 2 mg Q4H PRN Administration Pain, Moderate (4-6) Ondansetron HCl 4 mg 06/03/18 18:37 Zofran IV Q8H PRN Nausea And Vomiting Promethazine HCl 25 mg 06/03/18 18:37 Phenergan ID Q6H PRN Nausea And Vomiting Ranolazine 500 mg 06/03/18 22:00 06/04/18 12:08 Ranexa Er PO 500 mg BID [facility] Administration Sertraline HCl 25 mg 06/04/18 10:00 06/04/18 12:09 Zoloft PO 25 mg QDAY RYAN Administration Sodium Chloride 10 ml 06/03/18 18:37 06/03/18 23:07 Sodium Chloride Flush Syringe 10 Ml IV 10 ml PRN PRN Administration LINE FLUSH
--- NOTE | 2018-06-04 16:04 | Vascular Lab Report ---
PROCEDURE: VL CAROTID DUPLEX BILAT TECHNIQUE: Duplex Doppler ultrasound of the common, internal and external carotid arteries and the v ertebral arteries was performed bilaterally. Beltran scale imaging, velocity spectral waveform analysis, and color flow Doppler were employed. HISTORY: stroke COMPARISONS: CTA of the neck from 06/03/2018. Note: Measurement of carotid stenosis is based on flow velocity values that correlate with the [place] Symptomatic Carotid Endarterectomy Trial (NASCET) based stenosis criteria using the internal carotid artery diameter as the denominator for stenosis calculation. FINDINGS: RIGHT carotid artery: Velocities: ICA PSV: 111 cm/sec ICA End diastolic: 40 cm/sec CCA PSV: 59 cm/sec IC/CC ratio: 1.8 0 Plaque/color flow: Mild heterogeneous plaque without significant spectral broadening or abnormal col or flow . RIGHT vertebral artery: Antegrade systolic and diastolic flow LEFT carotid artery: Velocities: ICA PSV: 115 cm/sec ICA End diastolic: 35 cm/sec CCA PSV: 54 cm/sec IC/CC ratio: 2.1 Plaque/color flow: Mild heterogeneous plaque without significant spectral broadening or abnormal col or flow . LEFT vertebral artery: Antegrade systolic and diastolic flow IMPRESSION: 1. RIGHT carotid: No hemodynamically significant (less than 50 percent) internal carotid artery lance nosis. 2. LEFT carotid: No hemodynamically significant (less than 50 percent) internal carotid artery sten osis. 3. Vertebral arteries: Bilaterally antegrade. This document is electronically signed by Nicole Ramires., June 04 2018 04:01:53 PM ET
--- NOTE | 2018-06-04 17:51 | Consultation ---
History of Present Illness Consult date: 06/04/18 Requesting physician: JOSEPH PEPPER Reason for Consult: TIA vs stroke Chief complaint: TIA vs stroke History of present illness: This 77-year-old right-handed white female developed blurred vision in both eyes yesterday along with vertigo which had cleared up for both symptoms by the time she arrived in the emergency room. She also had left-sided neck pain and global headache with a tinge of nausea and photophobia which responded to medications. She had pain all the way from the left neck down to the wrist which felt similar to a previous TX. Arm and hand are still numb and she still has some little pain in the biceps insertion. She's had some shortness of breath with this whi ch responded to oxygen. CT angiogram of head showed mild to moderate carotid siphon disease and mild right vertebral artery narrowing intracranially. CT angiogram neck was normal. MRI was negative for diffusion and GRE that shows lacunes peripherally and periventricular white matter disease including corpus callosum on my review and lacunar changes and left caudate and basal ganglia along with some cerebral atrophy. LDL is 79, HDL 38, triglycerides elevated at 189. 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 denies: smoking, alcohol abuse, prescription drug abuse Family history: CAD, diabetes (mother, maternal grandmother), hypertension (mother, maternal grandmother, father, 2 half-sisters), stroke (mother and maternal grandmother), other (no history of epilepsy) Medications and Allergies Allergies Allergy/AdvReac Type Severity Reaction Status Date / Time Penicillins Allergy Anaphylaxis Verified 02/12/18 19:14 trazodone Allergy Hives Verified 02/12/18 19:14 Home Medications Medication Instructions Recorded Confirmed Last Taken Type Escitalopram Oxalate [Lexapro] 20 mg PO QPM 02/12/18 06/04/18 Unknown History Melatonin 10 mg PO QHS 02/12/18 06/04/18 Unknown History Sitagliptin Phosphate [Januvia] 50 mg PO QPM 02/12/18 06/04/18 Unknown History amLODIPine [Norvasc] 10 mg PO DAILY 02/12/18 06/04/18 Unknown History busPIRone [Buspar] 5 mg PO TID 02/12/18 06/04/18 Unknown History glyBURIDE [Glyburide] 5 mg PO TID 02/12/18 06/04/18 Unknown History hydrOXYzine pamoate [Hydroxyzine 25 mg PO QPM 02/12/18 06/04/18 Unknown History Pamoate] AtorvaSTATin [Lipitor] 40 mg PO QHS #30 tablet 02/15/18 06/04/18 Unknown Rx Benzonatate [Tessalon Perles] 100 mg PO Q8HR #10 capsule 02/15/18 06/04/18 Unknown Rx Clopidogrel [Plavix] 75 mg PO DAILY 02/26/18 06/04/18 Unknown History Lisinopril [Zestril] 10 mg PO DAILY 30 Days #120 tablet 03/06/18 06/04/18 Unknown Rx Metoprolol Xl [Metoprolol 25 mg PO QDAY #30 tablet 03/06/18 06/04/18 Unknown Rx SUCCINATE ER TAB] Acetaminophen [Acetaminophen TAB] 650 mg PO Q4H PRN 03/21/18 06/04/18 Unknown History Aspirin 81 mg PO DAILY 03/21/18 06/04/18 Unknown History Donepezil [Aricept] 5 mg PO QHS 03/21/18 06/04/18 Unknown History Doxepin HCl 50 mg PO QHS 03/21/18 06/04/18 Unknown History Escitalopram Oxalate [Lexapro] 20 mg PO QPM 03/21/18 06/04/18 Unknown History ISOSORBIDE MONOnitrate [Imdur ER] 30 mg PO QDAY tablet 03/27/18 06/04/18 Unknown Rx Linagliptin [Tradjenta] 5 mg PO DAILY@1800 tablet 03/27/18 06/04/18 Unknown Rx Ranolazine ER [Ranexa ER] 500 mg PO BID tablet 03/27/18 06/04/18 Unknown Rx Sertraline [Zoloft] 25 mg PO QDAY tablet 03/27/18 06/04/18 Unknown Rx busPIRone [Buspar] 7.5 mg PO TID tablet 03/27/18 06/04/18 Unknown Rx Active Meds: Active Medications Acetaminophen (Tylenol) 650 mg PO Q4H PRN PRN Reason: Pain, Mild (1-3) Albuterol (Proventil) 2.5 mg IH Q3HRT PRN PRN Reason: Shortness Of Breath Aspirin (Aspirin) 325 mg PO QDAY [facility] Last Admin: 06/04/18 12:08 Dose: 325 mg Documented by: Atorvastatin Calcium (Lipitor) 40 mg PO QHS [facility] Last Admin: 06/03/18 23:06 Dose: 40 mg Documented by: Benzonatate (Tessalon Perles) 100 mg PO Q8HR [facility] Last Admin: 06/04/18 16:00 Dose: 100 mg Documented by: Bisacodyl (Dulcolax) 10 mg ME QDAY PRN PRN Reason: Constipation Buspirone HCl (Buspar) 5 mg PO TID [facility] Last Admin: 06/04/18 16:00 Dose: 5 mg Documented by: Clopidogrel Bisulfate (Plavix) 75 mg PO DAILY [facility] Last Admin: 06/04/18 12:08 Dose: 75 mg Documented by: Dextrose (D50w (25gm) Syringe) 50 ml IV PRN PRN PRN Reason: Hypoglycemia Donepezil HCl (Aricept) 5 mg PO QHS [facility] Last Admin: 06/03/18 23:06 Dose: 5 mg Documented by: Doxepin HCl (Sinequan) 50 mg PO QHS [facility] Last Admin: 06/03/18 23:07 Dose: 50 mg Documented by: Famotidine (Pepcid) 10 mg PO BID [facility] Last Admin: 06/04/18 12:08 Dose: 10 mg Documented by: Hydroxyzine Pamoate (Vistaril) 25 mg PO QPM [facility] Insulin Human Lispro (Humalog) 0 unit SUB-Q ACHS [facility]; Protocol Last Admin: 06/04/18 13:55 Dose: 3 unit Documented by: Lisinopril (Zestril) 10 mg PO DAILY [facility] Last Admin: 06/04/18 12:07 Dose: 10 mg Documented by: Lorazepam (Ativan) 1 mg IV Q4H PRN PRN Reason: Agitation Last Admin: 06/03/18 20:49 Dose: 1 mg Documented by: Magnesium Hydroxide (Milk Of Magnesia) 30 ml PO Q4H PRN PRN Reason: Constipation Metoclopramide HCl (Reglan) 10 mg PO Q6H PRN PRN Reason: Nausea And Vomiting Metoprolol Succinate (Toprol Xl) 25 mg PO QDAY [facility] Last Admin: 06/04/18 12:07 Dose: 25 mg Documented by: Miscellaneous Medication (Melatonin [Melatonin]) 10 mg PO QHS [facility] Morphine Sulfate (Morphine) 2 mg IV Q4H PRN PRN Reason: Pain, Moderate (4-6) Last Admin: 06/04/18 16:00 Dose: 2 mg Documented by: Ondansetron HCl (Zofran) 4 mg IV Q8H PRN PRN Reason: Nausea And Vomiting Promethazine HCl (Phenergan) 25 mg ME Q6H PRN PRN Reason: Nausea And Vomiting Ranolazine (Ranexa Er) 500 mg PO BID [facility] Last Admin: 06/04/18 12:08 Dose: 500 mg Documented by: Sertraline HCl (Zoloft) 25 mg PO QDAY [facility] Last Admin: 06/04/18 12:09 Dose: 25 mg Documented by: Sodium Chloride (Sodium Chloride Flush Syringe 10 Ml) 10 ml IV PRN PRN PRN Reason: LINE FLUSH Last Admin: 06/03/18 23:07 Dose: 10 ml Documented by: Review of Systems All systems: negative (migraines in the past, dizzy only with strokes, no snoring, some trouble breathing associated with her strokes, occasional nap but not dozing off, not sleepy driving, gets 7-9 hours sleep on Ambien then feels rested) Physical Examination - Vital Signs Vital Signs: Vital Signs Pulse Resp BP Pulse Ox 92 H 15 140/64 100 06/03/18 16:01 06/03/18 16:01 06/03/18 16:01 06/03/18 16:01 - Physical Exam Narrative exam: General Appearance: well developed but overweight (per BMI) mid 70s white female in [facility]. HEENT: atraumatic, normocephalic; no bruits, 2+ Angelina without soreness or induration or enlargement, sclerae nonicteric. Oropharynx pink and moist. Neck: supple, no bruits. Heart: no murmur or extra sounds. Extremities: no clubbing, cyanosis or edema. 2+ posterior tibial/dorsalis pedis pulses bilaterally. Neurologic Exam: Mental Status: Awake, alert, oriented X 3, speech is clear, names pen and ballpoint of pen, and abstracts well. Names President and gets Special Officer after Khris is prompt, serial 7's intact, no right-left confusion, gets 2 of 3 objects at 3 minutes, spells WORLD backwards correctly. Cranial Nerves: perales full, no papilledema, SVPs present, PERRLA, EOMs full without nystagmus or diplopia, facial sensation intact to pinprick and light touch, no facial weakness, Ceja is midline without hearing aids using a 256 Hz tuning fork since she could not hear the 128 Hz tuning fork, palate rises symmetrically to phonation and gags are positive, shoulder shrug is 5 X 2, tongue protrudes midline. Says she sees "dots" in her vision when tired. Cerebellar: finger to nose off target bilaterally without tremor, heel to trujillo is normal bilaterally. Sensory: Decreased to light touch and pinprick right side, intact vibrations. Double simultaneous stimulation is intact. Motor Exam Upper Extremities: no drift or pronation, Cora showed decreased amplitude of movements on the right and says she still has some residual we akness from prior stroke, dry color tester are 5 X 2, tone is normal. No atrophy or fasciculations are noted visually. Motor Exam Lower Extremities: Mild right leg lag; iliopsoas are 5, quadriceps and anterior tibials are 4- on the right but gastrocnemius are 5 X 2. Cora intact. Tone is normal. No atrophy or fasciculations are noted visually. Reflexes: Palmomental is positive on the right, snout is positive but jaw jerk is negative. Triceps are trace right and 0 left but causes pain so may not be reliable, biceps are 1 right and trace left and brachioradialis are trace bilaterally. Lizz's is negative bilaterally. Knee jerks are trace right and 0 left remaining 0 with reinforcement and ankle jerks are 0 bilaterally even with reinforcement and without clonus. Toes are downgoing bilaterally to Babinski testing. Results - Laboratory Findings CBC and BMP: 06/03/18 16:15 06/03/18 16:15 Abnormal Lab Findings: Abnormal Labs 06/03/18 06/03/18 06/03/18 16:11 16:15 16:15 RDW 17.2 H [place] % (Auto) 9.1 H Glucose 237 H POC Glucose 214 H Triglycerides HDL Cholesterol 06/04/18 06/04/18 05:20 11:52 RDW [place] % (Auto) Glucose POC Glucose 157 H Triglycerides 189 H HDL Cholesterol 38 L Assessment and Plan Impression: 1. TIA 2. Possible left cervical radiculopathy Plan: 1. If stable BPs, could go home tomorrow. 2. Should have 30 day event monitoring as outpatient for occult PAF as I explained. 3. Could try cervical traction as outpatient if left arm symptoms persist, and cervical spine MRI. 70 minutes spent including review of 100s MRI images. Thank you for an interesting consultation on this pleasant mid 70s lady. Signing off, call for any questions.
[2018-06-04] MEDS ORDERED: VISTARIL PO SCH (18:00)
[2018-06-04] MEDS: ARICEPT PO SCH (22:06)
[2018-06-04] MEDS: SINEquan PO SCH (22:06)
[2018-06-04] MEDS: ATIVAN IV PRN (22:07)
[2018-06-04 22:12] LABS: Bilirubin,Urine NEG (Negative); Blood,Urine NEG (Negative); Color,Urine Yellow (Yellow); Protein,Urine <15 mg/dL mg/dL (Negative); Urobilinogen,Urine < 2.0 mg/dL (<2.0)
[2018-06-05] MEDS: ATIVAN IV PRN (05:51)
[2018-06-05] MEDS: MORPHINE IV PRN (05:52)
[2018-06-05] MEDS: TESSALON PERLES PO SCH (05:52)
--- NOTE | 2018-06-05 09:37 | Discharge Summary ---
Providers - Providers Date of Admission: 06/03/18 18:37 Date of discharge: 06/05/18 Attending physician: JOSEPH PEPPER 06/03/18 18:37 Occupational Therapy Evaluate and Treat [CONS] Routine Comment: Reason For Exam: Neuro deficits Physical Therapy Evaluation and Treat [CONS] Routine Comment: Reason For Exam: Neuro deficits 06/03/18 18:38 Speech Therapy Evaluation and Treat [CONS] Routine Reason For Exam: swallow eval 06/03/18 18:41 Consult to Physician [CONS] Routine Comment: added to list Consulting Provider: YESSENIA CROW Physician Instructions: Reason For Exam: cva Primary care physician: DESTINI SANTO Hospitalization Reason for admission: tia/cva Condition: Serious Hospital course: 77 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 Pt also reported that she experienced slurred speech as well as feeling dizzy which subsequently resulted in a loss of consciousness. EMS notified, and upon arrival the patient was found to be in distress. Pt transported to [facility]. Pt seen and evaluated in ED and found to have symptoms consistent with CVA. Teleneurology consulted and recommended TPA. Pt declined TPA. Pt admitted n 03/21/18 to telemetry and initiated on CVA protocol. The patient was seen by neurology in consultation. CT angiogram of head showed mild to moderate carotid siphon disease and mild right vertebral artery narrowing intracranially. CT angiogram neck was normal. MRI was negative for diffusion and GRE that shows lacunes peripherally and periventricular white matter disease including corpus callosum on neurology's review and lacunar changes and left caudate and basal ganglia along with some cerebral atrophy. LDL is 79, HDL 38, triglycerides elevated at 189. Neurology felt that diagnosis was TIA/CVA. Blood pressure stabilized and neurology felt patient could be discharged with outpatient follow-up for 30 day event monitoring for occult PAF. Neurology recommended outpatient cervical MRI if left arm symptoms persist. Dedicated discharge time 32 minutes. Disposition: - TO HOME OR SELFCARE Time spent for discharge: 32 - Discharge Diagnoses (1) COPD (chronic obstructive pulmonary disease) Status: Acute Qualifiers: COPD type: chronic bronchitis (2) CVA (cerebral vascular accident) Status: Acute Qualifiers: Precerebral and cerebral artery: middle cerebral artery Laterality of affected vessel: right (3) CAD (coronary artery disease) Status: Acute Qualifiers: Coronary Disease-Associated Artery/Lesion type: [place]iat artery [place] vs. transplanted heart: inupiat heart Associated angina: angina presence unspecified Qualified Code(s): I25.10 - Atherosclerotic heart disease of inupiat coronary artery without angina pectoris (4) Depression Status: Chronic Qualifiers: Depression Type: unspecified Qualified Code(s): F32.9 - Major depressive disorder, single episode, unspecified (5) T2DM (type 2 diabetes mellitus) Status: Chronic Qualifiers: Diabetes mellitus custodial insulin use: without terminal carman use Core Measure Documentation - Palliative Care Palliative Care/ Comfort Measures: Not Applicable - Core Measures Any of the following diagnoses?: stroke - Stroke Discharge Requirements Statin for LDL = or >70 mg/dl on DC: Yes Anticoag for atrial fib/atrial flutter: Not Applicable Antithrombotic for ischemic stroke: Yes Exam - Constitutional Vitals: Temp Pulse Resp BP Pulse Ox 98.0 F 66 18 117/47 84 06/05/18 05:31 06/05/18 05:31 06/05/18 05:31 06/05/18 05:31 06/05/18 05:31 General appearance: Present: no acute distress, well-nourished - EENT Eyes: Present: PERRL ENT: hearing intact, clear oral mucosa - Neck Neck: Present: supple, normal ROM - Respiratory Respiratory effort: normal Respiratory: bilateral: CTA - Cardiovascular Heart Sounds: Present: S1 & S2. Absent: rub, click - Extremities Extremities: pulses symmetrical, No edema Peripheral Pulses: within normal limits - Abdominal General gastrointestinal: Present: soft, non-tender, non-distended, normal bowel sounds Female genitourinary: Present: normal - Integumentary Integumentary: Present: clear, warm, dry - Musculoskeletal Musculoskeletal: gait normal, strength equal bilaterally - Psychiatric Psychiatric: appropriate mood/affect, intact judgment & insight - Neurologic Neurologic: CNII-XII intact, moves all extremities Plan Activity: no restrictions Weight Bearing Status: Full Weight Bearing Diet: diabetic Additional Instructions: Repeat Echo for bibble study with Vasalva and 30 day event monitoring for CVA Follow up with: MARK WHITEHEAD MD [Staff Physician] - 3-5 Days JOON PHIPPS MD [Staff Physician] - 7 Days Prescriptions: Donepezil [Aricept] 5 mg PO QHS #30 tablet Aspirin [Aspirin TAB] 325 mg PO QDAY #30 tablet busPIRone [Buspar] 5 mg PO TID #90 tablet busPIRone [Buspar] 7.5 mg PO TID #90 tablet Doxepin HCl 50 mg PO QHS #30 capsule glyBURIDE [Glyburide] 5 mg PO TID #90 tablet hydrOXYzine pamoate [Hydroxyzine Pamoate] 25 mg PO QPM #30 capsule ISOSORBIDE MONOnitrate [Imdur ER] 30 mg PO QDAY #30 tablet Sitagliptin Phosphate [Januvia] 50 mg PO QPM #30 tablet Escitalopram Oxalate [Lexapro] 20 mg PO QPM #30 tablet AtorvaSTATin [Lipitor] 40 mg PO QHS #30 tablet AtorvaSTATin [Lipitor] 40 mg PO QHS #30 tablet Melatonin 10 mg PO QHS #30 capsule Metoprolol Xl [Metoprolol SUCCINATE ER TAB] 25 mg PO QDAY #30 tablet amLODIPine [Norvasc] 10 mg PO DAILY #30 tablet Clopidogrel [Plavix] 75 mg PO DAILY #30 tablet Ranolazine ER [Ranexa ER] 500 mg PO BID #60 tablet Benzonatate [Tessalon Perles] 100 mg PO Q8HR #10 capsule Linagliptin [Tradjenta] 5 mg PO DAILY@1800 #30 tablet Lisinopril [Zestril] 10 mg PO DAILY 30 Days #120 tablet Sertraline [Zoloft] 25 mg PO QDAY #30 tablet
[2018-06-05] MEDS: HumaLOG SUB-Q SCH (09:52)
[2018-06-05] MEDS: PLAVIX PO SCH (10:02)
[2018-06-05] MEDS: ASPIRIN PO SCH (10:02)
[2018-06-05] MEDS: ZESTRIL PO SCH (10:02)
[2018-06-05] MEDS: PEPCID PO SCH (10:02)
[2018-06-05] MEDS: BUSPAR PO SCH (10:02)
[2018-06-05] MEDS: TOPROL XL PO SCH (10:02)
[2018-06-05] MEDS: ZOLOFT PO SCH (10:02)
[2018-06-05] MEDS: RANEXA ER PO SCH (10:02)
[2018-06-05 11:48] VITALS: BP 144/52
== END 2018-06-05 15:18 | DRG 65 ==
LOC: ED 15:59 → 4A 18:37
PROVIDERS: ADMIT Internal Medicine; ATTEND Hospitalist
DX: I63.511 Cerebral infarction due to unspecified occlusion or stenosis of right middle cerebral artery (principal); I69.351 Hemiplegia and hemiparesis following cerebral infarction affecting right dominant side; G93.40 Encephalopathy, unspecified; R55 Syncope and collapse; I25.2 Old myocardial infarction; E11.9 Type 2 diabetes mellitus without complications; J44.9 Chronic obstructive pulmonary disease, unspecified; I25.10 Atherosclerotic heart disease of native coronary artery without angina pectoris; I11.9 Hypertensive heart disease without heart failure; I77.89 Other specified disorders of arteries and arterioles; G31.9 Degenerative disease of nervous system, unspecified; R47.81 Slurred speech; E78.5 Hyperlipidemia, unspecified; Z98.41 Cataract extraction status, right eye; Z83.3 Family history of diabetes mellitus; Z82.3 Family history of stroke; Z95.5 Presence of coronary angioplasty implant and graft; Z82.49 Family history of ischemic heart disease and other diseases of the circulatory system; Z88.8 Allergy status to other drugs, medicaments and biological substances; Z88.0 Allergy status to penicillin; Z79.84 Long term (current) use of oral hypoglycemic drugs; Z79.82 Long term (current) use of aspirin
CPT/HCPCS: 36415; 70450; 70496; 70498; 70544; 70551; 80048; 80061; 81001; 82962; 84484; 85025; 85610; 85670; 85730; 93005; 93010; 93306; 93880; 94760; 96374; 96375; G0378; A9270-GY; J2060; J2270; J2997; Q0177; Q9967

== ENCOUNTER 2019-01-27 15:30 | Emergency (ER) | payer MEDICARE ==
[2019-01-27 17:45] VITALS: BP 146/72
[2019-01-27 18:18] LABS: Basophils # (Auto) 0.1 K/mm3 (0.0-0.1); Basophils % (Auto) 0.8 % (0.0-1.8); Eosinophils # (Auto) 0.3 K/mm3 (0.0-0.4); Eosinophils % (Auto) 2.6 % (0.0-4.3); Hemoglobin 13.9 gm/dl (10.1-14.3); Lymphocytes # (Auto) 4.2 K/mm3 (1.2-5.4); Lymphocytes % (Auto) 40.1 % (13.4-35.0); Mean Corpuscular HGB Conc 33 % (30-34); Mean Corpuscular Volume 91 fl (79-97); Monocytes % (Auto) 9.7 % (0.0-7.3); Platelet Count 429 K/mm3 (140-440); Red Blood Count 4.64 M/mm3 (3.65-5.03); Red Cell Distribution Width 14.8 % (13.2-15.2)
[2019-01-27 18:31] LABS: Alanine Aminotransferase 14 units/L (7-56); Albumin 4.4 g/dL (3.9-5); BUN/Creatinine Ratio 22; Blood Urea Nitrogen 20 mg/dL (7-17); Calcium 8.9 mg/dL (8.4-10.2); Hemolysis Index 9
--- NOTE | 2019-01-27 19:28 | Emergency Department Report ---
ED General Adult HPI - General Chief complaint: Medical Clearance Stated complaint: MH Time Seen by Provider: 01/27/19 18:31 Source: patient, EMS Mode of arrival: Stretcher Limitations: No Limitations - History of Present Illness Initial comments: Patient presents to the emergency department from [facility] for evaluation. Patient states that she got into miscommunication with the director of a assisted due to finances as stated I would rather be than to give you my pension check. Patient states that at that point the medical director occupational health stated "that's it you are going to the emergency department". Patient denies homicidal or suicidal ideations. Patient also denies auditory or visual hallucinations. Patient denies any other medical issues such as chest pain, shortness breath, or abdominal pain. Severity scale (0 -10): 0 Improves with: none Worsens with: none Associated Symptoms: denies other symptoms Treatments Prior to Arrival: none - Related Data Home Medications Medication Instructions Recorded Confirmed Last Taken Acetaminophen [Acetaminophen TAB] 650 mg PO Q4H PRN 03/21/18 06/04/18 Unknown Escitalopram Oxalate [Lexapro] 20 mg PO QPM 03/21/18 06/04/18 Unknown Previous Rx's Medication Instructions Recorded Last Taken Type Aspirin 325 mg PO QDAY #30 tablet 06/05/18 Unknown Rx AtorvaSTATin [Lipitor] 40 mg PO QHS #30 tablet 06/05/18 Unknown Rx AtorvaSTATin [Lipitor] 40 mg PO QHS #30 tablet 06/05/18 Unknown Rx Benzonatate [Tessalon Perles] 100 mg PO Q8HR #10 capsule 06/05/18 Unknown Rx Clopidogrel [Plavix] 75 mg PO DAILY #30 tablet 06/05/18 Unknown Rx Donepezil [Aricept] 5 mg PO QHS #30 tablet 06/05/18 Unknown Rx Doxepin HCl 50 mg PO QHS #30 capsule 06/05/18 Unknown Rx Doxepin [SINEquan] 50 mg PO QHS capsule 06/05/18 Unknown Rx Escitalopram Oxalate [Lexapro] 20 mg PO QPM #30 tablet 06/05/18 Unknown Rx ISOSORBIDE MONOnitrate [Imdur ER] 30 mg PO QDAY #30 tablet 06/05/18 Unknown Rx Linagliptin [Tradjenta] 5 mg PO DAILY@1800 #30 tablet 06/05/18 Unknown Rx Lisinopril [Zestril] 10 mg PO DAILY 30 Days #120 tablet 06/05/18 Unknown Rx Lispro Insulin [HumaLOG] 0 unit SUB-Q ACHS units 06/05/18 Unknown Rx Melatonin [Melatonin 10MG CAP] 10 mg PO QHS #30 capsule 06/05/18 Unknown Rx Metoprolol Xl [Metoprolol 25 mg PO QDAY #30 tablet 06/05/18 Unknown Rx SUCCINATE ER TAB] Ranolazine ER [Ranexa ER] 500 mg PO BID #60 tablet 06/05/18 Unknown Rx Sertraline [Zoloft] 25 mg PO QDAY #30 tablet 06/05/18 Unknown Rx Sitagliptin Phosphate [Januvia] 50 mg PO QPM #30 tablet 06/05/18 Unknown Rx amLODIPine 10 mg PO DAILY #30 tablet 06/05/18 Unknown Rx busPIRone [Buspar] 5 mg PO TID #90 tablet 06/05/18 Unknown Rx busPIRone [Buspar] 7.5 mg PO TID #90 tablet 06/05/18 Unknown Rx glyBURIDE [Glyburide] 5 mg PO TID #90 tablet 06/05/18 Unknown Rx hydrOXYzine pamoate [Hydroxyzine 25 mg PO QPM #30 capsule 06/05/18 Unknown Rx Pamoate] Allergies Allergy/AdvReac Type Severity Reaction Status Date / Time Penicillins Allergy Anaphylaxis Verified 01/27/19 17:12 trazodone Allergy Hives Verified 01/27/19 17:12 ED Review of Systems ROS: Stated complaint: MH Other details as noted in HPI Comment: All other systems reviewed and negative Constitutional: denies: chills, fever Eyes: denies: eye pain, eye discharge, vision change ENT: denies: ear pain, throat pain Respiratory: denies: cough, shortness of breath, wheezing Cardiovascular: denies: chest pain, palpitations Endocrine: no symptoms reported Gastrointestinal: denies: abdominal pain, nausea, diarrhea Genitourinary: denies: urgency, dysuria, discharge Musculoskeletal: denies: back pain, joint swelling, arthralgia Skin: denies: rash, lesions Neurological: denies: headache, weakness, paresthesias Psychiatric: denies: anxiety, depression Hematological/Lymphatic: denies: easy bleeding, easy bruising ED Past Medical Hx - Past Medical History Previous Medical History?: Yes Hx Hypertension: Yes Hx CVA: Yes Hx Heart Attack/AMI: Yes Hx Congestive Heart Failure: No Hx Diabetes: Yes Hx Deep Vein Thrombosis: No Hx Liver Disease: No Hx Seizures: No Hx COPD: Yes Hx Dementia: No Hx HIV: Yes - Surgical History Past Surgical History?: Yes Hx Coronary Stent: Yes Hx Pacemaker: No Hx Internal Defibrillator: No Additional Surgical History: Cardia stent placement X4 - Social History Smoking Status: Former Smoker Substance Use Type: None - Medications Home Medications: Home Medications Medication Instructions Recorded Confirmed Last Taken Type Acetaminophen [Acetaminophen TAB] 650 mg PO Q4H PRN 03/21/18 06/04/18 Unknown History Escitalopram Oxalate [Lexapro] 20 mg PO QPM 03/21/18 06/04/18 Unknown History Aspirin 325 mg PO QDAY #30 tablet 06/05/18 Unknown Rx AtorvaSTATin [Lipitor] 40 mg PO QHS #30 tablet 06/05/18 Unknown Rx AtorvaSTATin [Lipitor] 40 mg PO QHS #30 tablet 06/05/18 Unknown Rx Benzonatate [Tessalon Perles] 100 mg PO Q8HR #10 capsule 06/05/18 Unknown Rx Clopidogrel [Plavix] 75 mg PO DAILY #30 tablet 06/05/18 Unknown Rx Donepezil [Aricept] 5 mg PO QHS #30 tablet 06/05/18 Unknown Rx Doxepin HCl 50 mg PO QHS #30 capsule 06/05/18 Unknown Rx Doxepin [SINEquan] 50 mg PO QHS capsule 06/05/18 Unknown Rx Escitalopram Oxalate [Lexapro] 20 mg PO QPM #30 tablet 06/05/18 Unknown Rx ISOSORBIDE MONOnitrate [Imdur ER] 30 mg PO QDAY #30 tablet 06/05/18 Unknown Rx Linagliptin [Tradjenta] 5 mg PO DAILY@1800 #30 tablet 06/05/18 Unknown Rx Lisinopril [Zestril] 10 mg PO DAILY 30 Days #120 tablet 06/05/18 Unknown Rx Lispro Insulin [HumaLOG] 0 unit SUB-Q ACHS units 06/05/18 Unknown Rx Melatonin [Melatonin 10MG CAP] 10 mg PO QHS #30 capsule 06/05/18 Unknown Rx Metoprolol Xl [Metoprolol 25 mg PO QDAY #30 tablet 06/05/18 Unknown Rx SUCCINATE ER TAB] Ranolazine ER [Ranexa ER] 500 mg PO BID #60 tablet 06/05/18 Unknown Rx Sertraline [Zoloft] 25 mg PO QDAY #30 tablet 06/05/18 Unknown Rx Sitagliptin Phosphate [Januvia] 50 mg PO QPM #30 tablet 06/05/18 Unknown Rx amLODIPine 10 mg PO DAILY #30 tablet 06/05/18 Unknown Rx busPIRone [Buspar] 5 mg PO TID #90 tablet 06/05/18 Unknown Rx busPIRone [Buspar] 7.5 mg PO TID #90 tablet 06/05/18 Unknown Rx glyBURIDE [Glyburide] 5 mg PO TID #90 tablet 06/05/18 Unknown Rx hydrOXYzine pamoate [Hydroxyzine 25 mg PO QPM #30 capsule 06/05/18 Unknown Rx Pamoate] ED Physical Exam - General Limitations: No Limitations General appearance: alert, in no apparent distress - Head Head exam: Present: atraumatic, normocephalic - Eye Eye exam: Present: normal appearance - ENT ENT exam: Present: mucous membranes moist - Neck Neck exam: Present: normal inspection - Respiratory Respiratory exam: Present: normal lung sounds bilaterally. Absent: respiratory distress - Cardiovascular Cardiovascular Exam: Present: regular rate, normal rhythm. Absent: systolic murmur, diastolic murmur, rubs, gallop - GI/Abdominal GI/Abdominal exam: Present: soft, normal bowel sounds. Absent: distended, tenderness - Extremities Exam Extremities exam: Present: normal inspection - Back Exam Back exam: Present: normal inspection - Neurological Exam Neurological exam: Present: alert, oriented X3, CN II-XII intact. Absent: motor sensory deficit - Psychiatric Psychiatric exam: Present: normal affect, normal mood. Absent: homicidal ideation, suicidal ideation - Skin Skin exam: Present: warm, dry, intact, normal color. Absent: rash ED Course Vital Signs 01/27/19 17:44 Temperature 97.4 F L Pulse Rate 75 Respiratory 18 Rate Blood Pressure 146/72 [Left] O2 Sat by Pulse 95 Oximetry ED Medical Decision Making - Lab Data Result diagrams: 01/27/19 17:56 01/27/19 17:56 - Medical Decision Making Diagnostic studies discussed with patient Critical care attestation.: If time is entered above; I have spent that time in minutes in the direct care of this critically ill patient, excluding procedure time. ED Disposition Clinical Impression: Agitation Disposition: DC-01 TO HOME OR SELFCARE Is pt being admited?: No Does the pt Need Aspirin: No Condition: Stable Additional Instructions: return if worse Referrals: MARK WHITEHEAD MD [Staff Physician] - 3-5 Days Time of Disposition: 19:28
== END 2019-01-27 21:50 | disposition home or self-care (01) ==
LOC: ED 15:30
DX: R45.1 Restlessness and agitation (principal); I10 Essential (primary) hypertension; I25.2 Old myocardial infarction; E11.9 Type 2 diabetes mellitus without complications; Z95.5 Presence of coronary angioplasty implant and graft; Z86.73 Personal history of transient ischemic attack (TIA), and cerebral infarction without residual deficits; Z87.891 Personal history of nicotine dependence; Z79.4 Long term (current) use of insulin; Z79.899 Other long term (current) drug therapy; Z88.0 Allergy status to penicillin; Z88.8 Allergy status to other drugs, medicaments and biological substances
CPT/HCPCS: 36415; 80053; 80320; 84443; 85025; G0480

== ENCOUNTER 2019-05-28 12:47 | Observation (INO) | payer MEDICARE ==
--- NOTE | 2019-05-28 14:06 | Emergency Department Report ---
Blank Doc - Documentation Documentation: The patient was seen in triage for chest pain , dizziness, visual changes, "fe els at ton of bricks on chest", diplopia. headache 11/24 Labs/imaging ordered to evaluate for a cause of this complaint. Vital signs reviewed, patient awake and alert in NAD. Plan cardiac evaluation
--- NOTE | 2019-05-28 14:45 | Cat Scan Report ---
CT HEAD WITHOUT CONTRAST HISTORY: headache. TECHNIQUE: Axial imaging performed from the skull apex through the skull base without the use of con trast. All CT scans at this location are performed using CT dose reduction for ALARA by means of aut omated exposure control. COMPARISON: 06/03/2018 FINDINGS: Parenchyma: No acute intracranial hemorrhage or parenchymal abnormality. Mild cortical volume loss i s noted. Mild hypoattenuation throughout the white matter is noted and consistent with chronic micro vascular ischemic disease. Ventricles: There is mild diffuse brain atrophy with commensurate ventricular enlargement which is l ikely age appropriate. Soft tissues: Soft tissues including the orbits appear normal. Bones: No acute osseous abnormality. Sinuses: There is persistent opacification of the right mastoid air cells and middle ear. The left m astoid air cells and visualized sinuses are well-aerated. IMPRESSION: No acute abnormality. Volume loss and nonspecific chronic white matter changes. Opacifica tion of the right mastoid air cells and middle ear. No significant change since 06/03/2018. Signer Name: Alvin De La Torre Jr, MD Signed: 05/28/2019 2:41 PM Workstation Name: [id number]
[2019-05-28] MEDS ORDERED: ASPIRIN 325 MG TAB PO ONE (14:50)
[2019-05-28] MEDS ORDERED: fentaNYL 100 MCG/2 ML INJ IV ONE (14:50)
[2019-05-28] MEDS ORDERED: ONDANSETRON 4 MG/2 ML INJ IV ONE (14:50)
[2019-05-28] MEDS ORDERED: NITROGLYCERIN 2% OINT 1 GM TP ONE (14:50)
--- NOTE | 2019-05-28 14:59 | Emergency Department Report ---
HPI - General Chief Complaint: Chest Pain Time Seen by Provider: 05/28/19 14:02 - HPI HPI: Room 26 The patient is a 78-year-old female present with a chief complaint of chest pain and headache. Patient states her symptoms began 3 days ago with a constant headache and left-sided chest pain described as an aching in nature. Patient states yesterday she developed double vision. Patient states her chest pain is associated with shortness of breath and diaphoresis but denies nausea/vomiting. Patient currently gives her chest pain score of 8/10. 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 The patient states she noticed she had to search for her words over the past 3 days and this was present with her previous CVAs. The patient has a history of 4 cardiac stents ED Past Medical Hx - Past Medical History Previous Medical History?: Yes Hx Hypertension: Yes Hx CVA: Yes Hx Heart Attack/AMI: Yes Hx Diabetes: Yes Hx COPD: Yes - Surgical History Past Surgical History?: Yes Hx Coronary Stent: Yes Additional Surgical History: Cardia stent placement X4, tonsillectomy, C- section, pneumatic equalization tubes - Family History Family history: no significant - Social History Smoking Status: Former Smoker (None x40 years) Substance Use Type: None (Denies illicit drug use), Alcohol (Occasional) - Medications Home Medications: Home Medications Medication Instructions Recorded Confirmed Last Taken Type Acetaminophen [Acetaminophen TAB] 650 mg PO Q4H PRN 03/21/18 06/04/18 Unknown History Escitalopram Oxalate [Lexapro] 20 mg PO QPM 03/21/18 06/04/18 Unknown History Aspirin 325 mg PO QDAY #30 tablet 06/05/18 Unknown Rx AtorvaSTATin [Lipitor] 40 mg PO QHS #30 tablet 06/05/18 Unknown Rx AtorvaSTATin [Lipitor] 40 mg PO QHS #30 tablet 06/05/18 Unknown Rx Benzonatate [Tessalon Perles] 100 mg PO Q8HR #10 capsule 06/05/18 Unknown Rx Clopidogrel [Plavix] 75 mg PO DAILY #30 tablet 06/05/18 Unknown Rx Doxepin HCl 50 mg PO QHS #30 capsule 06/05/18 Unknown Rx Doxepin [SINEquan] 50 mg PO QHS capsule 06/05/18 Unknown Rx Escitalopram Oxalate [Lexapro] 20 mg PO QPM #30 tablet 06/05/18 Unknown Rx ISOSORBIDE MONOnitrate [Imdur ER] 30 mg PO QDAY #30 tablet 06/05/18 Unknown Rx Linagliptin [Tradjenta] 5 mg PO DAILY@1800 #30 tablet 06/05/18 Unknown Rx Lisinopril [Zestril] 10 mg PO DAILY 30 Days #120 tablet 06/05/18 Unknown Rx Lispro Insulin [HumaLOG] 0 unit SUB-Q ACHS units 06/05/18 Unknown Rx Melatonin [Melatonin 10MG CAP] 10 mg PO QHS #30 capsule 06/05/18 Unknown Rx Metoprolol Xl [Metoprolol 25 mg PO QDAY #30 tablet 06/05/18 Unknown Rx SUCCINATE ER TAB] Ranolazine ER [Ranexa ER] 500 mg PO BID #60 tablet 06/05/18 Unknown Rx Sertraline [Zoloft] 25 mg PO QDAY #30 tablet 06/05/18 Unknown Rx Sitagliptin Phosphate [Januvia] 50 mg PO QPM #30 tablet 06/05/18 Unknown Rx amLODIPine 10 mg PO DAILY #30 tablet 06/05/18 Unknown Rx busPIRone [Buspar] 5 mg PO TID #90 tablet 06/05/18 Unknown Rx busPIRone [Buspar] 7.5 mg PO TID #90 tablet 06/05/18 Unknown Rx donepeziL [Aricept] 5 mg PO QHS #30 tablet 06/05/18 Unknown Rx glyBURIDE [Glyburide] 5 mg PO TID #90 tablet 06/05/18 Unknown Rx hydrOXYzine pamoate [Hydroxyzine 25 mg PO QPM #30 capsule 06/05/18 Unknown Rx Pamoate] ED Review of Systems ROS: Stated complaint: CP Other details as noted in HPI Constitutional: diaphoresis Eyes: vision change ENT: denies: throat pain Respiratory: shortness of breath Cardiovascular: chest pain Endocrine: no symptoms reported Gastrointestinal: denies: nausea, vomiting Genitourinary: denies: dysuria Musculoskeletal: denies: back pain Neurological: headache Physical Exam - Physical Exam Vital Signs: Vital Signs 05/28/19 05/28/19 13:08 14:04 Temperature 97.8 F 97.8 F Pulse Rate 112 H 113 H Respiratory 20 20 Rate Blood Pressure 135/62 135/62 O2 Sat by Pulse 92 9 L Oximetry Physical Exam: GENERAL: The patient is well-developed well-nourished female lying on stretcher not appearing to be in acute distress. [] HEENT: Normocephalic. Atraumatic. Extraocular motions are intact. Patient has moist mucous membranes. NECK: Supple. Trachea midline CHEST/LUNGS: Clear to auscultation. There is no respiratory distress noted. HEART/CARDIOVASCULAR: Regular. There is no tachycardia. There is no gallop rub or murmur. ABDOMEN: Abdomen is soft, nontender. Patient has normal bowel sounds. There is no abdominal distention. SKIN: There is no rash. There is no edema. There is no diaphoresis. NEURO: The patient is awake, alert, and oriented. The patient is cooperative. Cranial nerves II through XII grossly intact except for cranial nerve XI on the right. The patient has normal speech. Patient has residual right-sided weakness from previous CVA MUSCULOSKELETAL: There is no evidence of acute injury. ED Course Vital Signs 05/28/19 05/28/19 13:08 14:04 Temperature 97.8 F 97.8 F Pulse Rate 112 H 113 H Respiratory 20 20 Rate Blood Pressure 135/62 135/62 O2 Sat by Pulse 92 9 L Oximetry ED Medical Decision Making - Lab Data Result diagrams: 05/28/19 15:03 05/28/19 15:03 Laboratory Tests 05/28/19 05/28/19 05/28/19 15:03 15:03 15:03 WBC 10.2 RBC 4.52 Hgb 12.3 Hct 39.2 MCV 87 MCH 27 L MCHC 31 RDW 15.0 Plt Count 327 Lymph % (Auto) 23.4 [place] % (Auto) 7.7 H Eos % (Auto) 2.2 Baso % (Auto) 2.3 H Lymph # 2.4 [place] # 0.8 Eos # 0.2 Baso # 0.2 H Seg Neutrophils % 64.4 Seg Neutrophils # 6.5 Sodium Potassium Chloride Carbon Dioxide Anion Gap BUN Creatinine Estimated GFR BUN/Creatinine Ratio Glucose Calcium Troponin T < 0.010 NT-Pro-B Natriuret Pep 34.86 05/28/19 15:03 WBC RBC Hgb Hct MCV MCH MCHC RDW Plt Count Lymph % (Auto) [place] % (Auto) Eos % (Auto) Baso % (Auto) Lymph # [place] # Eos # Baso # Seg Neutrophils % Seg Neutrophils # Sodium 136 L Potassium 4.7 Chloride 96.3 L Carbon Dioxide 22 Anion Gap 22 BUN 16 Creatinine 0.7 Estimated GFR > 60 BUN/Creatinine Ratio 23 Glucose 429 H Calcium 8.9 Troponin T NT-Pro-B Natriuret Pep - EKG Data -: EKG Interpreted by Me EKG shows normal: sinus rhythm Rate: tachycardia (108 bpm) - EKG Data Interpretation: nonspecific ST-T wave subhash (T wave inversion lead V2) - Radiology Data Radiology results: report reviewed (CT head), image reviewed (CT head) Findings [facility] [address] [id number] Cat Scan Report Signed Patient: EFRAIN ARMENDARIZ MR#: Aquiles [id number] : 1940 Acct:[id number] Age/Sex: 78 / F ADM Date: 05/28/19 Loc: ED Attending Dr: Ordering Physician: TANNA GONZALEZ Date of Service: 05/28/19 Procedure(s): CT head/brain wo con Accession Number(s): [id number] cc: TANNA GONZALEZ CT HEAD WITHOUT CONTRAST HISTORY: headache. TECHNIQUE: Axial imaging performed from the skull apex through the skull base without the use of contrast. All CT scans at this location are performed using CT dose reduction for ALARA by means of automated exposure control. COMPARISON: 06/03/2018 FINDINGS: Parenchyma: No acute intracranial hemorrhage or parenchymal abnormality. Mild cortical volume loss is noted. Mild hypoattenuation throughout the white matter is noted and consistent with chronic microvascular ischemic disease. Ventricles: There is mild diffuse brain atrophy with commensurate ventricular enlargement which is likely age appropriate. Soft tissues: Soft tissues including the orbits appear normal. Bones: No acute osseous abnormality. Sinuses: There is persistent opacification of the right mastoid air cells and middle ear. The left mastoid air cells and visualized sinuses are well-aerated. IMPRESSION: No acute abnormality. Volume loss and nonspecific chronic white matter changes. Opacification of the right mastoid air cells and middle ear. No significant change since 06/03/2018. Signer Name: Alvin De La Torre Jr, MD Signed: 05/28/2019 2:41 PM Workstation Name: [id number] Transcribed By: TTR Dictated By: ALVIN DE LA TORRE JR, MD Electronically Authenticated By: ALVIN DE LA TORRE JR, MD Signed Date/Time: 05/28/19 1441 DD/ 1435 TD/TT: - Differential Diagnosis ACS, CVA, pericarditis, GERD Critical care attestation.: If time is entered above; I have spent that time in minutes in the direct care of this critically ill patient, excluding procedure time. ED Disposition Clinical Impression: Chest pain Disposition: - OP ADMIT IP TO THIS HOSP Is pt being admited?: Yes Does the pt Need Aspirin: Yes Condition: Stable Instructions: Chest Pain (ED) Referrals: PRIMARY CARE, [Primary Care Provider] - 3-5 Days Time of Disposition: 17:07 (Hospitalist paged (Dr Quach))
[2019-05-28 15:24] LABS: Basophils # (Auto) 0.2 K/mm3 (0.0-0.1); Basophils % (Auto) 2.3 % (0.0-1.8); Eosinophils # (Auto) 0.2 K/mm3 (0.0-0.4); Eosinophils % (Auto) 2.2 % (0.0-4.3); Hematocrit 39.2 % (30.3-42.9); Hemoglobin 12.3 gm/dl (10.1-14.3); Lymphocytes # (Auto) 2.4 K/mm3 (1.2-5.4); Lymphocytes % (Auto) 23.4 % (13.4-35.0); Mean Corpuscular HGB Conc 31 % (30-34); Mean Corpuscular Volume 87 fl (79-97); Monocytes # (Auto) 0.8 K/mm3 (0.0-0.8); Monocytes % (Auto) 7.7 % (0.0-7.3); Platelet Count 327 K/mm3 (140-440); Red Blood Count 4.52 M/mm3 (3.65-5.03)
--- NOTE | 2019-05-28 16:37 | XRay Report ---
CHEST 1 VIEW INDICATION: Chest Pain. COMPARISON: 03/21/2018. FINDINGS: Support devices: None. Heart: Borderline heart size. Lungs/Pleura: No acute air space or interstitial disease. Calcified granuloma left base. Additional findings: None. IMPRESSION: Stable chest. Signer Name: Juan Manuel Gaines MD Signed: 05/28/2019 4:33 PM Workstation Name: [id number]
[2019-05-28 16:40] LABS: BUN/Creatinine Ratio 23; Blood Urea Nitrogen 16 mg/dL (7-17); Calcium 8.9 mg/dL (8.4-10.2); Hemolysis Index 19
--- NOTE | 2019-05-28 18:29 | History and Physical Report ---
History of Present Illness Date of examination: 05/28/19 Date of admission: 05/28/2019 Chief complaint: Left sided chest pain for 3 days. 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 Cardiac stentsx4 in the past. Past Medical History Previous Medical History?: Yes Hypertension: Yes CVA: Yes Heart Attack/AMI: Yes Diabetes: Yes COPD: Yes HIV on triage sheet--to be verified from the patient later. Surgical History Past Surgical History?: Yes Hx Coronary Stent: Yes Additional Surgical History: Cardia stent placement X4, tonsillectomy, C- section, pneumatic equalization tubes Family History Family history: no significant Social History Smoking Status: Former Smoker (None x40 years) Substance Use Type: None (Denies illicit drug use), Alcohol (Occasional) Medications Home Medications: Home Medications Medication Instructions Recorded Confirmed Last Taken Type Acetaminophen [Acetaminophen TAB] 650 mg PO Q4H PRN 03/21/18 06/04/18 Unknown History Escitalopram Oxalate [Lexapro] 20 mg PO QPM 03/21/18 06/04/18 Unknown History Aspirin 325 mg PO QDAY #30 tablet 06/05/18 Unknown Rx AtorvaSTATin [Lipitor] 40 mg PO QHS #30 tablet 06/05/18 Unknown Rx AtorvaSTATin [Lipitor] 40 mg PO QHS #30 tablet 06/05/18 Unknown Rx Benzonatate [Tessalon Perles] 100 mg PO Q8HR #10 capsule 06/05/18 Unknown Rx Clopidogrel [Plavix] 75 mg PO DAILY #30 tablet 06/05/18 Unknown Rx Doxepin HCl 50 mg PO QHS #30 capsule 06/05/18 Unknown Rx Doxepin [SINEquan] 50 mg PO QHS capsule 06/05/18 Unknown Rx Escitalopram Oxalate [Lexapro] 20 mg PO QPM #30 tablet 06/05/18 Unknown Rx ISOSORBIDE MONOnitrate [Imdur ER] 30 mg PO QDAY #30 tablet 06/05/18 Unknown Rx Linagliptin [Tradjenta] 5 mg PO DAILY@1800 #30 tablet 06/05/18 Unknown Rx Lisinopril [Zestril] 10 mg PO DAILY 30 Days #120 tablet 06/05/18 Unknown Rx Lispro Insulin [HumaLOG] 0 unit SUB-Q ACHS units 06/05/18 Unknown Rx Melatonin [Melatonin 10MG CAP] 10 mg PO QHS #30 capsule 06/05/18 Unknown Rx Metoprolol Xl [Metoprolol 25 mg PO QDAY #30 tablet 06/05/18 Unknown Rx SUCCINATE ER TAB] Ranolazine ER [Ranexa ER] 500 mg PO BID #60 tablet 06/05/18 Unknown Rx Sertraline [Zoloft] 25 mg PO QDAY #30 tablet 06/05/18 Unknown Rx Sitagliptin Phosphate [Januvia] 50 mg PO QPM #30 tablet 06/05/18 Unknown Rx amLODIPine 10 mg PO DAILY #30 tablet 06/05/18 Unknown Rx busPIRone [Buspar] 5 mg PO TID #90 tablet 06/05/18 Unknown Rx busPIRone [Buspar] 7.5 mg PO TID #90 tablet 06/05/18 Unknown Rx donepeziL [Aricept] 5 mg PO QHS #30 tablet 06/05/18 Unknown Rx glyBURIDE [Glyburide] 5 mg PO TID #90 tablet 06/05/18 Unknown Rx hydrOXYzine pamoate [Hydroxyzine 25 mg PO QPM #30 capsule 06/05/18 Unknown Rx Pamoate] Review of Systems ROS: Stated complaint: CP Other details as noted in HPI Constitutional: diaphoresis Eyes: vision change ENT: denies: throat pain Respiratory: shortness of breath Cardiovascular: chest pain Endocrine: no symptoms reported Gastrointestinal: denies: nausea, vomiting Genitourinary: denies: dysuria Musculoskeletal: denies: back pain Neurological: headache Medications and Allergies Allergies Allergy/AdvReac Type Severity Reaction Status Date / Time Penicillins Allergy Anaphylaxis Verified 05/28/19 18:40 trazodone Allergy Hives Verified 05/28/19 18:40 Home Medications Medication Instructions Recorded Confirmed Last Taken Type Acetaminophen [Acetaminophen TAB] 650 mg PO Q4H PRN 03/21/18 05/29/19 Unknown History Escitalopram Oxalate [Lexapro] 20 mg PO QPM 03/21/18 05/29/19 Unknown History Aspirin 325 mg PO QDAY #30 tablet 06/05/18 05/29/19 Unknown Rx AtorvaSTATin [Lipitor] 40 mg PO QHS #30 tablet 06/05/18 05/29/19 Unknown Rx AtorvaSTATin [Lipitor] 40 mg PO QHS #30 tablet 06/05/18 05/29/19 Unknown Rx Benzonatate [Tessalon Perles] 100 mg PO Q8HR #10 capsule 06/05/18 05/29/19 Unknown Rx Clopidogrel [Plavix] 75 mg PO DAILY #30 tablet 06/05/18 05/29/19 Unknown Rx Doxepin HCl 50 mg PO QHS #30 capsule 06/05/18 05/29/19 Unknown Rx Doxepin [SINEquan] 50 mg PO QHS capsule 06/05/18 05/29/19 Unknown Rx Escitalopram Oxalate [Lexapro] 20 mg PO QPM #30 tablet 06/05/18 05/29/19 Unknown Rx ISOSORBIDE MONOnitrate [Imdur ER] 30 mg PO QDAY #30 tablet 06/05/18 05/29/19 Unknown Rx Linagliptin [Tradjenta] 5 mg PO DAILY@1800 #30 tablet 06/05/18 05/29/19 Unknown Rx Lisinopril [Zestril] 10 mg PO DAILY 30 Days #120 tablet 06/05/18 05/29/19 Unknown Rx Lispro Insulin [HumaLOG] 0 unit SUB-Q ACHS units 06/05/18 05/29/19 Unknown Rx Melatonin [Melatonin 10MG CAP] 10 mg PO QHS #30 capsule 06/05/18 05/29/19 Unknown Rx Metoprolol Xl [Metoprolol 25 mg PO QDAY #30 tablet 06/05/18 05/29/19 Unknown Rx SUCCINATE ER TAB] Ranolazine ER [Ranexa ER] 500 mg PO BID #60 tablet 06/05/18 05/29/19 Unknown Rx Sertraline [Zoloft] 25 mg PO QDAY #30 tablet 06/05/18 05/29/19 Unknown Rx Sitagliptin Phosphate [Januvia] 50 mg PO QPM #30 tablet 06/05/18 05/29/19 Unknown Rx amLODIPine 10 mg PO DAILY #30 tablet 06/05/18 05/29/19 Unknown Rx busPIRone [Buspar] 5 mg PO TID #90 tablet 06/05/18 05/29/19 Unknown Rx busPIRone [Buspar] 7.5 mg PO TID #90 tablet 06/05/18 05/29/19 Unknown Rx donepeziL [Aricept] 5 mg PO QHS #30 tablet 06/05/18 05/29/19 Unknown Rx glyBURIDE [Glyburide] 5 mg PO TID #90 tablet 06/05/18 05/29/19 Unknown Rx hydrOXYzine pamoate [Hydroxyzine 25 mg PO QPM #30 capsule 06/05/18 05/29/19 Unknown Rx Pamoate] Exam - Constitutional Vitals: Temp Pulse Resp BP Pulse Ox 97.8 F 84 23 132/63 94 05/28/19 14:04 05/28/19 17:45 05/28/19 17:45 05/28/19 17:45 05/28/19 17:45 General appearance: Present: no acute distress, well-nourished - EENT Eyes: Present: PERRL ENT: hearing intact, clear oral mucosa - Neck Neck: Present: supple, normal ROM - Respiratory Respiratory effort: normal Respiratory: bilateral: CTA - Cardiovascular Heart rate: 108 Rhythm: regular Heart Sounds: Present: S1 & S2. Absent: rub, click - Extremities Extremities: no ischemia, pulses intact, pulses symmetrical, No edema Peripheral Pulses: within normal limits - Abdominal General gastrointestinal: Present: soft, non-tender, non-distended, normal bowel sounds Female genitourinary: Present: normal - Rectal Rectal Exam: deferred - Integumentary Integumentary: Present: clear, warm, dry - Musculoskeletal Musculoskeletal: right sided weakness - Psychiatric Psychiatric: appropriate mood/affect, intact judgment & insight - Neurologic Neurologic: CNII-XII intact, moves all extremities - Allied Health Allied health notes reviewed: nursing, case management MAXINE score - Maxine Score Age > 65: (1) Yes Aspirin use within the Past 7 Days: (1) Yes 3 or more CAD Risk Factors: (1) Yes 2 or more Angina events in past 24 hrs: (1) Yes Known CAD with more than 50% Stenosis: (1) Yes Elevated Cardiac Markers: (0) No ST Deviation Greater than 0.5mm: (0) No MAXINE Score: 5 Results - Labs CBC & Chem 7: 05/29/19 05:52 05/29/19 05:52 Labs: Laboratory Last Values WBC 10.2 K/mm3 (4.5-11.0) 05/28/19 15:03 RBC 4.52 M/mm3 (3.65-5.03) 05/28/19 15:03 Hgb 12.3 gm/dl (10.1-14.3) 05/28/19 15:03 Hct 39.2 % (30.3-42.9) 05/28/19 15:03 MCV 87 fl (79-97) 05/28/19 15:03 MCH 27 pg (28-32) L 05/28/19 15:03 MCHC 31 % (30-34) 05/28/19 15:03 RDW 15.0 % (13.2-15.2) 05/28/19 15:03 Plt Count 327 K/mm3 (140-440) 05/28/19 15:03 Lymph % (Auto) 23.4 % (13.4-35.0) 05/28/19 15:03 [place] % (Auto) 7.7 % (0.0-7.3) H 05/28/19 15:03 Eos % (Auto) 2.2 % (0.0-4.3) 05/28/19 15:03 Baso % (Auto) 2.3 % (0.0-1.8) H 05/28/19 15:03 Lymph # 2.4 K/mm3 (1.2-5.4) 05/28/19 15:03 [place] # 0.8 K/mm3 (0.0-0.8) 05/28/19 15:03 Eos # 0.2 K/mm3 (0.0-0.4) 05/28/19 15:03 Baso # 0.2 K/mm3 (0.0-0.1) H 05/28/19 15:03 Seg Neutrophils % 64.4 % (40.0-70.0) 05/28/19 15:03 Seg Neutrophils # 6.5 K/mm3 (1.8-7.7) 05/28/19 15:03 Sodium 136 mmol/L (137-145) L 05/28/19 15:03 Potassium 4.7 mmol/L (3.6-5.0) 05/28/19 15:03 Chloride 96.3 mmol/L (98-107) L 05/28/19 15:03 Carbon Dioxide 22 mmol/L (22-30) 05/28/19 15:03 Anion Gap 22 mmol/L 05/28/19 15:03 BUN 16 mg/dL (7-17) 05/28/19 15:03 Creatinine 0.7 mg/dL (0.7-1.2) 05/28/19 15:03 Estimated GFR > 60 ml/min 05/28/19 15:03 BUN/Creatinine Ratio 23 % 05/28/19 15:03 Glucose 429 mg/dL (65-100) H 05/28/19 15:03 Calcium 8.9 mg/dL (8.4-10.2) 05/28/19 15:03 Troponin T < 0.010 ng/mL (0.00-0.029) 05/28/19 15:03 NT-Pro-B Natriuret Pep 34.86 pg/mL (0-900) 05/28/19 15:03 Short CBC 05/28/19 Range/Units 15:03 WBC 10.2 (4.5-11.0) K/mm3 Hgb 12.3 (10.1-14.3) gm/dl Hct 39.2 (30.3-42.9) % Plt Count 327 (140-440) K/mm3 [facility] 05/28/19 15:03 Sodium 136 L Potassium 4.7 Chloride 96.3 L Carbon Dioxide 22 BUN 16 Creatinine 0.7 Glucose 429 H Calcium 8.9 Cardiac Enzymes 05/28/19 05/28/19 05/28/19 Range/Units 15:03 20:03 21:04 Troponin T < 0.010 < 0.010 < 0.010 (0.00-0.029) ng/mL Short CBC 05/28/19 Range/Units 15:03 WBC 10.2 (4.5-11.0) K/mm3 Hgb 12.3 (10.1-14.3) gm/dl Hct 39.2 (30.3-42.9) % Plt Count 327 (140-440) K/mm3 [facility] 05/28/19 15:03 Sodium 136 L Potassium 4.7 Chloride 96.3 L Carbon Dioxide 22 BUN 16 Creatinine 0.7 Glucose 429 H Calcium 8.9 Cardiac Enzymes 05/28/19 05/28/19 05/28/19 Range/Units 15:03 20:03 21:04 Troponin T < 0.010 < 0.010 < 0.010 (0.00-0.029) ng/mL - Imaging and Cardiology EKG: report reviewed (Sinus tach and RBBB and LAFB) Chest x-ray: report reviewed (NAF) CT Scan - head: report reviewed (NAF) Assessment and Plan Advance Directives: Yes (Full code) VTE prophylaxis?: Chemical Plan of care discussed with patient/family: Yes - Patient Problems (1) Chest pain Current Visit: Yes Status: Acute Qualifiers: Chest pain type: unspecified Qualified Code(s): R07.9 - Chest pain, unspecified Plan to address problem: Chest pain r/o [facility] protocol Serial troponins Lexiscan in AM Gerd in Differential diagnosis (2) Hyponatremia Current Visit: Yes Status: Acute Plan to address problem: d IV Fluids Recheck (3) CAD (coronary artery disease) Current Visit: No Status: Chronic Qualifiers: Coronary Disease-Associated Artery/Lesion type: [place] artery [place] vs. transplanted heart: [place] heart Associated angina: angina presence unspecified Qualified Code(s): I25.10 - Atherosclerotic heart disease of [place] coronary artery without angina pectoris Plan to address problem: Cnt ASA and Plavix (4) CVA (cerebral vascular accident) Current Visit: No Status: Chronic Qualifiers: Precerebral and cerebral artery: middle cerebral artery Laterality of affected vessel: left Plan to address problem: Cont Plavix Supportive care (5) Depression Current Visit: No Status: Chronic Qualifiers: Depression Type: unspecified Qualified Code(s): F32.9 - Major depressive disorder, single episode, unspecified Plan to address problem: Cont Lexapro (6) ARMIDA (generalized anxiety disorder) Current Visit: No Status: Chronic Plan to address problem: Cont Buspar (7) Hypertension Current Visit: No Status: Chronic Qualifiers: Hypertension type: essential hypertension Qualified Code(s): I10 - Essential (primary) hypertension Plan to address problem: Cont antihypertensives (8) T2DM (type 2 diabetes mellitus) Current Visit: No Status: Chronic Qualifiers: 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
[2019-05-28] MEDS ORDERED: ACETAMINOPHEN 325 MG TAB PO PRN ×2 (18:36→18:40)
[2019-05-28] MEDS ORDERED: ONDANSETRON 4 MG/2 ML INJ IV PRN (18:40)
[2019-05-28] MEDS ORDERED: HYDROmorphone 1 MG/1 ML INJ IV PRN (18:40)
[2019-05-28] MEDS ORDERED: INSULIN LISPRO 100 UNIT/ML SUB-Q ONE (18:44)
[2019-05-28] MEDS ORDERED: oxyCODONE /ACETAMINOPHEN 5-325MG TAB ONE (19:07)
[2019-05-28] MEDS ORDERED: SODIUM CHLORIDE 0.9% 1000 ML 1,000 ML ONE (19:07)
[2019-05-28] MEDS: SODIUM CHLORIDE 0.9% 1000 ML 1,000 ML IV SCH (19:08)
[2019-05-28] MEDS: oxyCODONE /ACETAMINOPHEN 5-325MG TAB PO PRN (19:08)
[2019-05-28] MEDS ORDERED: ALPRAZolam 0.5 MG TAB ONE (19:45)
[2019-05-28] MEDS: DOXEPIN 25 MG CAP PO SCH (23:20)
[2019-05-28] MEDS: ALPRAZolam 0.5 MG TAB PO PRN (23:20)
[2019-05-28] MEDS: RANOLAZINE ER 500 MG TAB 12HR PO SCH (23:20)
[2019-05-28] MEDS: busPIRone 5 MG TAB PO SCH (23:24)
[2019-05-28] MEDS: CLOPIDOGREL 75 MG TAB PO SCH (23:29)
[2019-05-29] MEDS: amLODIPine 10 MG TAB PO SCH ×2 (01:06→10:00)
[2019-05-29] MEDS: METOPROLOL SUCCINATE XL 25 MG TAB PO SCH ×2 (01:20→10:00)
[2019-05-29] MEDS: DONEPEZIL 5 MG TAB PO SCH ×2 (05:09→21:55)
[2019-05-29 06:28] LABS: Basophils % (Auto) 0.7 % (0.0-1.8); Eosinophils # (Auto) 0.4 K/mm3 (0.0-0.4); Eosinophils % (Auto) 4.9 % (0.0-4.3); Hematocrit 34.4 % (30.3-42.9); Hemoglobin 11.1 gm/dl (10.1-14.3); Lymphocytes # (Auto) 2.7 K/mm3 (1.2-5.4); Lymphocytes % (Auto) 36.9 % (13.4-35.0); Mean Corpuscular HGB Conc 32 % (30-34); Mean Corpuscular Volume 88 fl (79-97); Monocytes # (Auto) 0.8 K/mm3 (0.0-0.8); Monocytes % (Auto) 11.2 % (0.0-7.3); Platelet Count 287 K/mm3 (140-440); Red Blood Count 3.93 M/mm3 (3.65-5.03); Red Cell Distribution Width 14.8 % (13.2-15.2)
[2019-05-29 06:42] LABS: Alanine Aminotransferase 10 units/L (7-56); BUN/Creatinine Ratio 30; Blood Urea Nitrogen 18 mg/dL (7-17); Calcium 8.3 mg/dL (8.4-10.2); Hemolysis Index 16
[2019-05-29] MEDS ORDERED: REGADENOSON 0.4 MG/5 ML INJ IV ONE ×2 (07:58→08:18)
[2019-05-29] MEDS: busPIRone 5 MG TAB PO SCH ×3 (08:36→21:56)
[2019-05-29] MEDS: LISINOPRIL 20 MG TAB PO SCH (10:00)
[2019-05-29] MEDS ORDERED: PNEUMOCOCCAL 23 Valent 0.5 ML VIAL IM ONE (12:00)
--- NOTE | 2019-05-29 12:21 | Consultation ---
History of Present Illness Consult date: 05/29/19 Consult reason: chest pain History of present illness: 78y F admitted with chest pain. Chest pain is atypical and nonexertional. ECG is NSR with RBBB, no acute ischemic changes. Serial cardiac troponin levels are normal. Today she underwent a lexiscan thallium stress test, results pending. Long history of CAD and coronary stent implantion several years ago. Echo a year ago was normal EF 55-60%. Two years ago, a re-cath showed widely patent stents in LAD and conservative medical therapy for residual small vessel disease. 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 Co-morbidities: TIA, CVA, diabetes and hyperlipidemia. Past History Past Medical History: CAD, diabetes, hypertension, hyperlipidemia, stroke Medications and Allergies Allergies Allergy/AdvReac Type Severity Reaction Status Date / Time Penicillins Allergy Anaphylaxis Verified 05/28/19 18:40 trazodone Allergy Hives Verified 05/28/19 18:40 Home Medications Medication Instructions Recorded Confirmed Last Taken Type Acetaminophen [Acetaminophen TAB] 650 mg PO Q4H PRN 03/21/18 05/29/19 Unknown History Escitalopram Oxalate [Lexapro] 20 mg PO QPM 03/21/18 05/29/19 Unknown History Aspirin 325 mg PO QDAY #30 tablet 06/05/18 05/29/19 Unknown Rx AtorvaSTATin [Lipitor] 40 mg PO QHS #30 tablet 06/05/18 05/29/19 Unknown Rx AtorvaSTATin [Lipitor] 40 mg PO QHS #30 tablet 06/05/18 05/29/19 Unknown Rx Benzonatate [Tessalon Perles] 100 mg PO Q8HR #10 capsule 06/05/18 05/29/19 Unknown Rx Clopidogrel [Plavix] 75 mg PO DAILY #30 tablet 06/05/18 05/29/19 Unknown Rx Doxepin HCl 50 mg PO QHS #30 capsule 06/05/18 05/29/19 Unknown Rx Doxepin [SINEquan] 50 mg PO QHS capsule 06/05/18 05/29/19 Unknown Rx Escitalopram Oxalate [Lexapro] 20 mg PO QPM #30 tablet 06/05/18 05/29/19 Unknown Rx ISOSORBIDE MONOnitrate [Imdur ER] 30 mg PO QDAY #30 tablet 06/05/18 05/29/19 Unknown Rx Linagliptin [Tradjenta] 5 mg PO DAILY@1800 #30 tablet 06/05/18 05/29/19 Unknown Rx Lisinopril [Zestril] 10 mg PO DAILY 30 Days #120 tablet 06/05/18 05/29/19 Unknown Rx Lispro Insulin [HumaLOG] 0 unit SUB-Q ACHS units 06/05/18 05/29/19 Unknown Rx Melatonin [Melatonin 10MG CAP] 10 mg PO QHS #30 capsule 06/05/18 05/29/19 Unknown Rx Metoprolol Xl [Metoprolol 25 mg PO QDAY #30 tablet 06/05/18 05/29/19 Unknown Rx SUCCINATE ER TAB] Ranolazine ER [Ranexa ER] 500 mg PO BID #60 tablet 06/05/18 05/29/19 Unknown Rx Sertraline [Zoloft] 25 mg PO QDAY #30 tablet 06/05/18 05/29/19 Unknown Rx Sitagliptin Phosphate [Januvia] 50 mg PO QPM #30 tablet 06/05/18 05/29/19 Unknown Rx amLODIPine 10 mg PO DAILY #30 tablet 06/05/18 05/29/19 Unknown Rx busPIRone [Buspar] 5 mg PO TID #90 tablet 06/05/18 05/29/19 Unknown Rx busPIRone [Buspar] 7.5 mg PO TID #90 tablet 06/05/18 05/29/19 Unknown Rx donepeziL [Aricept] 5 mg PO QHS #30 tablet 06/05/18 05/29/19 Unknown Rx glyBURIDE [Glyburide] 5 mg PO TID #90 tablet 06/05/18 05/29/19 Unknown Rx hydrOXYzine pamoate [Hydroxyzine 25 mg PO QPM #30 capsule 06/05/18 05/29/19 Unknown Rx Pamoate] Active Meds: Active Medications Acetaminophen (Tylenol) 650 mg PO Q4H PRN PRN Reason: PAIN Alprazolam (Xanax) 0.5 mg PO Q8H PRN PRN Reason: Anxiety Last Admin: 05/28/19 23:20 Dose: 0.5 mg Documented by: Amlodipine Besylate (Amlodipine) 10 mg PO DAILY RYAN Last Admin: 05/29/19 01:06 Dose: Not Given Documented by: Aspirin (Aspirin) 325 mg PO QDAY [facility] Atorvastatin Calcium (Lipitor) 40 mg PO QHS [facility] Last Admin: 05/28/19 23:20 Dose: 40 mg Documented by: Buspirone HCl (Buspar) 5 mg PO TID [facility] Last Admin: 05/29/19 08:36 Dose: Not Given Documented by: Clopidogrel Bisulfate (Plavix) 75 mg PO DAILY [facility] Last Admin: 05/28/19 23:29 Dose: 75 mg Documented by: Donepezil HCl (Aricept) 5 mg PO QHS [facility] Last Admin: 05/29/19 05:09 Dose: Not Given Documented by: Doxepin HCl (Sinequan) 50 mg PO QHS [facility] Last Admin: 05/28/19 23:20 Dose: 50 mg Documented by: Escitalopram Oxalate (Lexapro) 20 mg PO QPM [facility] Hydromorphone HCl (Dilaudid) 0.5 mg IV Q3H PRN PRN Reason: Pain , Severe (7-10) Hydroxyzine Pamoate (Vistaril) 25 mg PO QPM [facility] Sodium Chloride (Nacl 0.9% 1000 Ml) 1,000 mls @ 75 mls/hr IV DIRECT [facility] Last Admin: 05/28/19 19:08 Dose: 75 mls/hr Documented by: Isosorbide Mononitrate (Imdur) 30 mg PO QDAY [facility] Last Admin: 05/28/19 23:28 Dose: 30 mg Documented by: Lisinopril (Zestril) 10 mg PO DAILY [facility] Metoprolol Succinate (Metoprolol Xl) 25 mg PO QDAY [facility] Last Admin: 05/29/19 01:20 Dose: Not Given Documented by: Ondansetron HCl (Zofran) 4 mg IV Q8H PRN PRN Reason: Nausea And Vomiting Oxycodone/Acetaminophen (Percocet 5/325) 1 tab PO Q6H PRN PRN Reason: Pain, Moderate (4-6) Last Admin: 05/28/19 19:08 Dose: 1 tab Documented by: Ranolazine (Ranexa Er) 500 mg PO BID [facility] Last Admin: 05/28/19 23:20 Dose: 500 mg Documented by: Sodium Chloride (Sodium Chloride Flush Syringe 10 Ml) 10 ml IV BID [facility] Last Admin: 05/29/19 05:12 Dose: Not Given Documented by: Sodium Chloride (Sodium Chloride Flush Syringe 10 Ml) 10 ml IV PRN PRN PRN Reason: LINE FLUSH Review of Systems Cardiovascular: chest pain, shortness of breath, no orthopnea, no palpitations, no rapid/irregular heart beat, no edema, no syncope, no lightheadedness Physical Examination Vital Signs Temp Pulse Resp BP Pulse Ox 97.8 F 112 H 20 135/62 92 05/28/19 13:08 05/28/19 13:08 05/28/19 13:08 05/28/19 13:08 05/28/19 13:08 General appearance: no acute distress HEENT: Positive: PERRL Neck: Positive: neck supple Cardiac: Positive: Reg Rate and Rhythm Lungs: Positive: Decreased Breath Sounds Neuro: Positive: Grossly Intact Abdomen: Positive: Soft Female genitourinary: deferred Skin: Positive: Clear Extremities: Absent: edema Results 05/29/19 05:52 05/29/19 05:52 Cardiac Enzymes 05/29/19 Range/Units 05:52 AST 9 (5-40) units/L CBC 05/28/19 05/29/19 Range/Units 15:03 05:52 WBC 10.2 7.4 (4.5-11.0) K/mm3 RBC 4.52 3.93 (3.65-5.03) M/mm3 Hgb 12.3 11.1 (10.1-14.3) gm/dl Hct 39.2 34.4 (30.3-42.9) % Plt Count 327 287 (140-440) K/mm3 Lymph # 2.4 2.7 (1.2-5.4) K/mm3 [place] # 0.8 0.8 (0.0-0.8) K/mm3 Eos # 0.2 0.4 (0.0-0.4) K/mm3 Baso # 0.2 H 0.0 (0.0-0.1) K/mm3 Comprehensive Metabolic Panel 05/28/19 05/29/19 Range/Units 15:03 05:52 Sodium 136 L 137 (137-145) mmol/L Potassium 4.7 4.3 (3.6-5.0) mmol/L Chloride 96.3 L 99.9 (98-107) mmol/L Carbon Dioxide 22 28 (22-30) mmol/L BUN 16 18 H (7-17) mg/dL Creatinine 0.7 0.6 L (0.7-1.2) mg/dL Glucose 429 H 317 H (65-100) mg/dL Calcium 8.9 8.3 L (8.4-10.2) mg/dL AST 9 (5-40) units/L ALT 10 (7-56) units/L Alkaline Phosphatase 65 (35-129) units/L Total Protein 5.3 L (6.3-8.2) g/dL Albumin 3.0 L (3.9-5) g/dL EKG interpretations - Telemetry EKG Rhythm: Sinus Rhythm (RBBB) Assessment and Plan - Patient Problems (1) Chest pain Current Visit: Yes Status: Acute Qualifiers: Chest pain type: unspecified Qualified Code(s): R07.9 - Chest pain, u nspecified Plan to address problem: Patient underwent lexiscan thallium stress, results pending.
[2019-05-29] MEDS: RANOLAZINE ER 500 MG TAB 12HR PO SCH ×2 (14:32→21:56)
[2019-05-29] MEDS: ASPIRIN 325 MG TAB PO SCH (14:32)
[2019-05-29] MEDS: CLOPIDOGREL 75 MG TAB PO SCH (14:32)
[2019-05-29] MEDS: SODIUM CHLORIDE 0.9% 1000 ML 1,000 ML IV SCH (15:51)
--- NOTE | 2019-05-29 17:17 | Discharge Summary ---
Providers - Providers Date of Admission: 05/28/19 17:08 Date of discharge: 05/29/19 Attending physician: NIKIA PETERSON 05/28/19 18:40 Consult to Physician [CONS] Routine Comment: Consulting Provider: JOON PHIPPS Physician Instructions: Reason For Exam: Chest pain Primary care physician: SENIOR AIR DIRECTOR Hospitalization Condition: Stable Hospital course: (1) Chest pain Current Visit: Yes Status: Acute Qualifiers: Lexiscan negative Chest pain type: unspecified Qualified Code(s): R07.9 - Chest pain, unspecified Plan to address problem: Chest pain 78y F admitted with chest pain. Chest pain is atypical and nonexertional. ECG is NSR with RBBB, no acute ischemic changes. Serial cardiac troponin levels are normal. Today she underwent a lexiscan thallium stress test--negative Long history of CAD and coronary stent implantion several years ago. Echo a year ago was normal EF 55-60%. Two years ago, a re-cath showed widely patent stents in LAD and conservative medical therapy for residual small vessel disease. 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 Co-morbidities: TIA, CVA, diabetes and hyperlipidemia. (2) Hyponatremia Current Visit: Yes Status: Acute Plan to address problem: Corrected (3) CAD (coronary artery disease) Current Visit: No Status: Chronic Qualifiers: Coronary Disease-Associated Artery/Lesion type: [place] artery [place] vs. transplanted heart: [place] heart Associated angina: angina presence unspecified Qualified Code(s): I25.10 - Atherosclerotic heart disease of [place] coronary artery without angina pectoris Plan to address problem: Cnt ASA and Plavix (4) CVA (cerebral vascular accident) Current Visit: No Status: Chronic Qualifiers: Precerebral and cerebral artery: middle cerebral artery Laterality of affected vessel: left Plan to address problem: Cont Plavix Supportive care (5) Depression Current Visit: No Status: Chronic Qualifiers: Depression Type: unspecified Qualified Code(s): F32.9 - Major depressive disorder, single episode, unspecified Plan to address problem: Cont Lexapro (6) ARMIDA (generalized anxiety disorder) Current Visit: No Status: Chronic Plan to address problem: Cont Buspar (7) Hypertension Current Visit: No Status: Chronic Qualifiers: Hypertension type: essential hypertension Qualified Code(s): I10 - Es sential (primary) hypertension Plan to address problem: Cont antihypertensives (8) T2DM (type 2 diabetes mellitus) Current Visit: No Status: Chronic Qualifiers: 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: without snf use Plan to address problem: COnt oral Hypoglycemics and Coverage Check A1c (9) HLD (hyperlipidemia) Current Visit: Yes Status: Chronic Qualifiers: Hyperlipidemia type: mixed hyperlipidemia Qualified Code(s): E78.2 - Mixed hyperlipidemia Plan to address problem: Cont Statins Disposition: DC- TO HOME OR SELFCARE Core Measure Documentation - Palliative Care Palliative Care/ Comfort Measures: Not Applicable - Core Measures Any of the following diagnoses?: none Exam - Constitutional Vitals: Temp Pulse Resp BP Pulse Ox 97.8 F 72 18 120/54 97 05/29/19 17:00 05/29/19 17:00 05/29/19 17:00 05/29/19 17:00 05/29/19 17:00 General appearance: Present: no acute distress, well-nourished - EENT Eyes: Present: PERRL ENT: hearing intact, clear oral mucosa - Neck Neck: Present: supple, normal ROM - Respiratory Respiratory effort: normal Respiratory: bilateral: CTA - Cardiovascular Heart rate: 78 Rhythm: regular Heart Sounds: Present: S1 & S2. Absent: rub, click - Extremities Extremities: pulses symmetrical, No edema Peripheral Pulses: within normal limits - Abdominal General gastrointestinal: Present: soft, non-tender, non-distended, normal bowel sounds Female genitourinary: Present: normal - Integumentary Integumentary: Present: clear, warm, dry - Musculoskeletal Musculoskeletal: gait normal, strength equal bilaterally - Psychiatric Psychiatric: appropriate mood/affect, intact judgment & insight - Neurologic Neurologic: CNII-XII intact, moves all extremities Plan Activity: no restrictions Diet: low cholesterol, low salt Follow up with: MARSHA MAXWELL MD [Primary Care Provider] - 3-5 Days JOON PHIPPS MD [Staff Physician] - 7 Days
[2019-05-29] MEDS: ESCITALOPRAM 10 MG TAB PO SCH (17:26)
[2019-05-29] MEDS: INSULIN LISPRO 100 UNIT/ML SUB-Q SCH ×2 (17:27→21:56)
[2019-05-29] MEDS: hydrOXYzine PAMOATE 25 MG CAP PO SCH (17:27)
[2019-05-29] MEDS: DOXEPIN 25 MG CAP PO SCH (21:56)
--- NOTE | 2019-05-29 22:08 | Treadmill Report ---
THALLIUM STRESS TEST REPORT LEFT VENTRICLE: Left ventricular chamber size is within normal spread. Perfusion study demonstrates a small fixed anteroapical defect with no significant reversibility on the resting study. Gated analysis demonstrates normal left ventricular systolic function, ejection fraction 71%. CONCLUSION: Small fixed anteroapical defect consistent with breast attenuation artifact. There is no reversible ischemia demonstrated on this study. Negative study. Clinical correlation is recommended. JOB# [id number] CA/NTS
[2019-05-30] MEDS: busPIRone 5 MG TAB PO SCH ×3 (10:36→21:30)
[2019-05-30] MEDS: LISINOPRIL 20 MG TAB PO SCH (10:36)
[2019-05-30] MEDS: CLOPIDOGREL 75 MG TAB PO SCH (10:36)
[2019-05-30] MEDS: ASPIRIN 325 MG TAB PO SCH (10:36)
[2019-05-30] MEDS: amLODIPine 10 MG TAB PO SCH (10:36)
[2019-05-30] MEDS: METOPROLOL SUCCINATE XL 25 MG TAB PO SCH (10:36)
[2019-05-30] MEDS: RANOLAZINE ER 500 MG TAB 12HR PO SCH ×2 (10:37→22:34)
[2019-05-30] MEDS: ALPRAZolam 0.5 MG TAB PO PRN ×2 (10:39→22:56)
--- NOTE | 2019-05-30 11:15 | Progress Note ---
Subjective Date of service: 05/30/19 Interval history: Patient is alert and oriented, not in any distress Patient was discharged yesterday but the assisted living facility//personal-long term refused to take her back manager beverage consulted We will also request psych evaluation per nursing staff recommendations Patient offers no specific complaints except chronic pain and states that she is takes Percocet 10 daily but is not listed in the home medication list On examination No apparent distress Vital signs stable HEENT-normocephalic, pupils round reacting to light, throat is clear Neck is supple, no JVD Lungs clear to auscultation Heart S1-S2 regular rate and rhythm Abdomen is benign Extremities-no leg edema Lab results reviewed A/P: Chest pain-Lexiscan stress test negative Cardiology cleared the patient for discharge . CAD/PCI Continue aspirin and Plavix History of stroke Continue Plavix History of anxiety and depression Continue BuSpar and Lexapro Type 2 diabetes Continue insulin sliding scale coverage Hypertension Well-controlled Awaiting placement Objective - Constitutional Vitals: Vital Signs - 12hr 05/29/19 05/30/19 05/30/19 23:26 02:00 05:11 Temperature 97.8 F 98.6 F Pulse Rate 77 76 68 Respiratory 18 20 Rate Blood Pressure 140/67 Blood Pressure 128/68 [Right] O2 Sat by Pulse 95 99 Oximetry 05/30/19 08:18 Temperature 98.3 F Pulse Rate 78 Respiratory 16 Rate Blood Pressure 123/42 Blood Pressure [Right] O2 Sat by Pulse 91 Oximetry - Labs CBC & Chem 7: 05/29/19 05:52 05/29/19 05:52 Labs: Abnormal lab results 05/29/19 05/29/19 05/30/19 Range/Units 17:13 21:53 08:30 POC Glucose 321 H 365 H 193 H (70-105)
[2019-05-30] MEDS: INSULIN LISPRO 100 UNIT/ML SUB-Q SCH ×4 (12:30→22:37)
--- NOTE | 2019-05-30 13:56 | Progress Note ---
Assessment and Plan - Patient Problems (1) Chest pain Current Visit: Yes Status: Deleted Qualifiers: Chest pain type: unspecified Qualified Code(s): R07.9 - Chest pain, unspecified Plan to address problem: Patient underwent lexiscan thallium stress, negative study. She is stable for cardiac discharge on medications. Follow-up with her tailor garment fitter in one week. Subjective Date of service: 05/30/19 Interval history: Patient is comfortable, no cardiac complaints. Objective Vital Signs Temp Pulse Resp BP BP Pulse Ox 05/30/19 08:35 70 05/30/19 08:18 98.3 F 78 16 123/42 91 05/30/19 05:11 98.6 F 68 20 128/68 99 05/30/19 02:00 76 05/29/19 23:26 97.8 F 77 18 140/67 95 05/29/19 20:00 98.9 F 73 18 123/58 96 05/29/19 17:00 97.8 F 72 18 120/54 97 - Physical Examination General: No Apparent Distress HEENT: Positive: PERRL Neck: Positive: neck supple Cardiac: Positive: Reg Rate and Rhythm Lungs: Positive: clear to auscultation Neuro: Positive: Grossly Intact Abdomen: Positive: Soft Skin: Positive: Clear Extremities: Absent: edema - Imaging and Cardiology EKG: report reviewed (Sinus tach and RBBB and LAFB)
--- NOTE | 2019-05-30 15:55 | Progress Note ---
Assessment and Plan (1) Chest pain Current Visit: Yes Status: Acute Qualifiers: Chest pain type: unspecified Qualified Code(s): R07.9 - Chest pain, unspecified Plan to address problem: Chest pain r/o [place] protocol Serial troponins Lexiscan negative (2) Hyponatremia Current Visit: Yes Status: Acute Plan to address problem: IV Fluids Recheck (3) CAD (coronary artery disease) Current Visit: No Status: Chronic Qualifiers: Coronary Disease-Associated Artery/Lesion type: [place] artery [place] vs. tr ansplanted heart: [place] heart Associated angina: angina presence unspecified Qualified Code(s): I25.10 - Atherosclerotic heart disease of [place] coronary artery without angina pectoris Plan to address problem: Cnt ASA and Plavix (4) CVA (cerebral vascular accident) Current Visit: No Status: Chronic Qualifiers: Precerebral and cerebral artery: middle cerebral artery Laterality of affected vessel: left Plan to address problem: Cont Plavix Supportive care (5) Depression Current Visit: No Status: Chronic Qualifiers: Depression Type: unspecified Qualified Code(s): F32.9 - Major depressive disorder, single episode, unspecified Plan to address problem: Cont Lexapro (6) ARMIDA (generalized anxiety disorder) Current Visit: No Status: Chronic Plan to address problem: Cont Buspar (7) Hypertension Current Visit: No Status: Chronic Qualifiers: Hypertension type: essential hypertension Qualified Code(s): I10 - Essential (primary) hypertension Plan to address problem: Cont antihypertensives (8) T2DM (type 2 diabetes mellitus) Current Visit: No Status: Chronic Qualifiers: Diabetes mellitus nursing home insulin use: without medical terminologist use Plan to address problem: COnt oral Hypoglycemics and Coverage Check A1c (9) HLD (hyperlipidemia) Current Visit: Yes Status: Chronic Qualifiers: Hyperlipidemia type: mixed hyperlipidemia Qualified Code(s): E78.2 - Mixed hyperlipidemia Plan to address problem: Cont Statins (10) DVT prophylaxis Current Visit: No Status: Acute Plan to address problem: On Heparin and GI prophylaxis Subjective Date of service: 05/29/19 Objective - Constitutional Vitals: Vital Signs - 12hr 05/30/19 05/30/19 05/30/19 05:11 08:18 08:35 Temperature 98.6 F 98.3 F Pulse Rate 68 78 70 Respiratory 20 16 Rate Blood Pressure 123/42 Blood Pressure 128/68 [Right] O2 Sat by Pulse 99 91 Oximetry General appearance: Present: no acute distress, well-nourished - EENT Eyes: PERRL, EOM intact ENT: hearing intact, clear oral mucosa Ears: bilateral: normal - Neck Neck: supple, normal ROM - Respiratory Respiratory effort: normal Respiratory: bilateral: CTA - Breasts Breasts: normal - Cardiovascular Rhythm: regular Heart Sounds: Present: S1 & S2. Absent: gallop, rub Extremities: pulses intact, No edema, normal color, Full ROM - Gastrointestinal General gastrointestinal: Present: soft, non-tender, non-distended, normal bowel sounds - Genitourinary Female genitourinary: normal - Integumentary Integumentary: clear, warm, dry - Musculoskeletal Musculoskeletal: 1, strength equal bilaterally - Neurologic Neurologic: moves all extremities - Psychiatric Psychiatric: memory intact, appropriate mood/affect, intact judgment & insight - Labs CBC & Chem 7: 05/29/19 05:52 05/29/19 05:52 Labs: Abnormal lab results 05/29/19 05/29/19 05/30/19 Range/Units 17:13 21:53 08:30 POC Glucose 321 H 365 H 193 H (70-105) 05/30/19 Range/Units 12:10 POC Glucose 275 H (70-105)
[2019-05-30] MEDS: ESCITALOPRAM 10 MG TAB PO SCH (17:27)
[2019-05-30] MEDS: hydrOXYzine PAMOATE 25 MG CAP PO SCH (17:27)
[2019-05-30] MEDS: DOXEPIN 25 MG CAP PO SCH (22:33)
[2019-05-30] MEDS: DONEPEZIL 5 MG TAB PO SCH (22:34)
[2019-05-31] MEDS: busPIRone 5 MG TAB PO SCH ×3 (08:15→21:20)
[2019-05-31] MEDS: INSULIN LISPRO 100 UNIT/ML SUB-Q SCH ×4 (09:40→22:40)
--- NOTE | 2019-05-31 11:34 | Progress Note ---
Assessment and Plan Chest pain, musculoskeletal negative MPI this admission CAD with history of [place] and PCI Cath 10/2016 - Widely patent prox and mid LAD stent. Medical therapy recommended for small vessel CAD. Normal LVEF 55-60% by echo 05/2018 History of TIA and CVA Hyperlipidemia NIDDM Hearing impairment Recommend: Continue medical therapy for chronic stable angina and coronary artery disease. Stable cardiac bailey. Once discharged, patient advised to follow-up with her primary entry processor at [place]. We will sign off. Subjective Date of service: 05/31/19 Interval history: Patient appealed discharged. Objective Vital Signs Temp Pulse Pulse Pulse Resp BP Pulse Ox 05/31/19 08:46 98.6 F 64 18 130/54 95 05/31/19 04:19 98.0 F 64 18 131/53 95 05/30/19 23:30 97.8 F 65 18 115/46 88 05/30/19 22:00 75 75 18 05/30/19 20:35 75 05/30/19 20:07 98.3 F 75 18 117/41 91 05/30/19 17:00 97.4 F L 71 18 106/53 91 05/30/19 11:56 97.9 F 18 108/51 - Physical Examination General: No Apparent Distress HEENT: Positive: PERRL Neck: Positive: neck supple Cardiac: Positive: Reg Rate and Rhythm Lungs: Positive: Decreased Breath Sounds Neuro: Positive: Grossly Intact Extremities: Absent: edema
[2019-05-31] MEDS: ASPIRIN 325 MG TAB PO SCH (11:44)
[2019-05-31] MEDS: RANOLAZINE ER 500 MG TAB 12HR PO SCH ×2 (11:45→22:37)
[2019-05-31] MEDS: amLODIPine 10 MG TAB PO SCH (11:45)
[2019-05-31] MEDS: CLOPIDOGREL 75 MG TAB PO SCH (11:45)
[2019-05-31] MEDS: LISINOPRIL 20 MG TAB PO SCH (11:46)
[2019-05-31] MEDS: METOPROLOL SUCCINATE XL 25 MG TAB PO SCH (11:47)
[2019-05-31] MEDS: oxyCODONE /ACETAMINOPHEN 5-325MG TAB PO PRN (11:48)
--- NOTE | 2019-05-31 13:36 | Progress Note ---
Assessment and Plan Assessment and plan: Chest pain-Lexiscan stress test negative Cardiology cleared the patient for discharge . CAD/PCI Continue aspirin and Plavix History of stroke Continue Plavix History of anxiety and depression Continue BuSpar and Lexapro Type 2 diabetes Continue insulin sliding scale coverage Hypertension Well-controlled 05/30 Patient was cleared by cardiology for dc. Case management working on arranging placement to SNF History Interval history: Patient initially presented with chest pain Hospitalist Physical - Constitutional Vitals: Temp Pulse Resp BP Pulse Ox 98.3 F 70 18 138/57 94 05/31/19 12:01 05/31/19 12:01 05/31/19 12:01 05/31/19 12:01 05/31/19 12:01 General appearance: Present: no acute distress, obese - EENT Eyes: Present: PERRL ENT: hearing intact - Neck Neck: Present: supple - Respiratory Respiratory: bilateral: CTA - Cardiovascular Rhythm: regular Heart Sounds: Present: S1 & S2 - Extremities Extremities: No edema - Abdominal General gastrointestinal: soft, non-tender, non-distended, normal bowel sounds - Integumentary Integumentary: Present: clear, warm, dry - Neurologic Neurologic: other (Awake,alert) MAXINE score - Maxine Score Age > 65: (1) Yes Aspirin use within the Past 7 Days: (1) Yes 3 or more CAD Risk Factors: (1) Yes 2 or more Angina events in past 24 hrs: (1) Yes Known CAD with more than 50% Stenosis: (1) Yes Elevated Cardiac Markers: (0) No ST Deviation Greater than 0.5mm: (0) No MAXINE Score: 5 Results - Labs CBC & Chem 7: 05/29/19 05:52 05/29/19 05:52 Labs: Laboratory Last Values WBC 7.4 K/mm3 (4.5-11.0) 05/29/19 05:52 RBC 3.93 M/mm3 (3.65-5.03) 05/29/19 05:52 Hgb 11.1 gm/dl (10.1-14.3) 05/29/19 05:52 Hct 34.4 % (30.3-42.9) 05/29/19 05:52 MCV 88 fl (79-97) 05/29/19 05:52 MCH 28 pg (28-32) 05/29/19 05:52 MCHC 32 % (30-34) 05/29/19 05:52 RDW 14.8 % (13.2-15.2) 05/29/19 05:52 Plt Count 287 K/mm3 (140-440) 05/29/19 05:52 Lymph % (Auto) 36.9 % (13.4-35.0) H 05/29/19 05:52 Clarke % (Auto) 11.2 % (0.0-7.3) H 05/29/19 05:52 Eos % (Auto) 4.9 % (0.0-4.3) H 05/29/19 05:52 Baso % (Auto) 0.7 % (0.0-1.8) 05/29/19 05:52 Lymph # 2.7 K/mm3 (1.2-5.4) 05/29/19 05:52 Clarke # 0.8 K/mm3 (0.0-0.8) 05/29/19 05:52 Eos # 0.4 K/mm3 (0.0-0.4) 05/29/19 05:52 Baso # 0.0 K/mm3 (0.0-0.1) 05/29/19 05:52 Seg Neutrophils % 46.3 % (40.0-70.0) 05/29/19 05:52 Seg Neutrophils # 3.4 K/mm3 (1.8-7.7) 05/29/19 05:52 Sodium 137 mmol/L (137-145) 05/29/19 05:52 Potassium 4.3 mmol/L (3.6-5.0) 05/29/19 05:52 Chloride 99.9 mmol/L (98-107) 05/29/19 05:52 Carbon Dioxide 28 mmol/L (22-30) 05/29/19 05:52 Anion Gap 13 mmol/L 05/29/19 05:52 BUN 18 mg/dL (7-17) H 05/29/19 05:52 Creatinine 0.6 mg/dL (0.7-1.2) L 05/29/19 05:52 Estimated GFR > 60 ml/min 05/29/19 05:52 BUN/Creatinine Ratio 30 % 05/29/19 05:52 Glucose 317 mg/dL (65-100) H 05/29/19 05:52 POC Glucose 303 (70-105) H 05/31/19 12:11 Hemoglobin A1c 8.9 % (4-6) H 05/29/19 05:52 Calcium 8.3 mg/dL (8.4-10.2) L 05/29/19 05:52 Total Bilirubin 0.20 mg/dL (0.1-1.2) 05/29/19 05:52 AST 9 units/L (5-40) 05/29/19 05:52 ALT 10 units/L (7-56) 05/29/19 05:52 Alkaline Phosphatase 65 units/L (35-129) 05/29/19 05:52 Troponin T < 0.010 ng/mL (0.00-0.029) 05/29/19 07:40 NT-Pro-B Natriuret Pep 34.86 pg/mL (0-900) 05/28/19 15:03 Total Protein 5.3 g/dL (6.3-8.2) L 05/29/19 05:52 Albumin 3.0 g/dL (3.9-5) L 05/29/19 05:52 Albumin/Globulin Ratio 1.3 % 05/29/19 05:52 Han/IV: Voiding Method External Female Catheter IV Catheter Type [Left Forearm INT / Saline Lock ] IV Catheter Type [Left Wrist] INT / Saline Lock Active Medications - Current Medications Current Medications: Generic Name Dose Route Start Last Admin Trade Name Freq PRN Reason Stop Dose Admin Acetaminophen 650 mg 05/28/19 18:36 Tylenol PO Q4H PRN Pain, Mild (1-3) Alprazolam 0.5 mg 05/28/19 19:38 05/30/19 22:56 Xanax PO 0.5 mg Q8H PRN Administration Anxiety Amlodipine Besylate 10 mg 05/28/19 19:00 05/31/19 11:45 Amlodipine PO 10 mg DAILY RYAN Administration Aspirin 325 mg 05/29/19 10:00 05/31/19 11:44 Aspirin PO 325 mg QDAY RYAN Administration Atorvastatin Calcium 40 mg 05/28/19 22:00 05/30/19 22:34 Lipitor PO 40 mg QHS RYAN Administration Buspirone HCl 5 mg 05/28/19 20:00 03/16/20 08:15 Buspar PO Not Given TID [facility] Clopidogrel Bisulfate 75 mg 05/28/19 19:00 05/31/19 11:45 Plavix PO 75 mg DAILY [facility] Administration Donepezil HCl 5 mg 05/28/19 22:00 05/30/19 22:34 Aricept PO 5 mg QHS RYAN Administration Doxepin HCl 50 mg 05/28/19 22:00 05/30/19 22:33 Sinequan PO 50 mg QHS RYAN Administration Escitalopram Oxalate 20 mg 05/29/19 18:00 05/30/19 17:27 Lexapro PO 20 mg QPM RYAN Administration Hydromorphone HCl 0.5 mg 05/28/19 18:40 Dilaudid IV Q3H PRN Pain , Severe (7-10) Hydroxyzine Pamoate 25 mg 05/29/19 18:00 05/30/19 17:27 Vistaril PO 25 mg QPM RYAN Administration Insulin Human Lispro 0 unit 05/29/19 17:00 05/31/19 12:48 Humalog SUB-Q 6 unit ACHS [facility] Administration Protocol Isosorbide Mononitrate 30 mg 05/28/19 19:00 05/31/19 11:45 Imdur PO 30 mg QDAY [facility] Administration Lisinopril 10 mg 05/29/19 10:00 05/31/19 11:46 Zestril PO 10 mg DAILY [facility] Administration Metoprolol Succinate 25 mg 05/28/19 19:00 05/31/19 11:47 Metoprolol Xl PO 25 mg QDAY [facility] Administration Ondansetron HCl 4 mg 05/28/19 18:40 Zofran IV Q8H PRN Nausea And Vomiting Oxycodone/Acetaminophen 1 tab 05/28/19 18:40 05/31/19 11:48 Percocet 5/325 PO 1 tab Q6H PRN Administration Pain, Moderate (4-6) Ranolazine 500 mg 05/28/19 22:00 05/31/19 11:45 Ranexa Er PO 500 mg BID RYAN Administration Sodium Chloride 10 ml 05/28/19 22:00 05/31/19 11:47 Sodium Chloride Flush Syringe 10 Ml IV 10 ml BID RYAN Administration Sodium Chloride 10 ml 05/28/19 18:40 Sodium Chloride Flush Syringe 10 Ml IV PRN PRN LINE FLUSH
--- NOTE | 2019-05-31 14:23 | Consultation ---
History of Present Illness - Reason for Consult Consult date: 05/31/19 Reason for consult: Psychiatric assessment - Chief Complaint Chief complaint: Left sided chest pain for 3 days. - History of Present Psychiatric Illness ms greene is a 78-year-old female, the patient is alert oriented x3, she is noted resting in bed, she is dressed appropriately for the occasion, she maintains eye contact. The patient stated that she has a history of depression and anxiety and has been seeing a psychiatric doctor once a month, she maintains that she is compliant with her medications and needs no adjustment. The patient denies suicidal or homicidal ideations and contracts for safety. The patient denies any visual or auditory hallucinations. The patient stated that she has a history of depression but her depression is under control with this scale of 2 out of 10. The patient stated that she is sleeping well and eating well. The patient requests no further psychiatric assessment. The patient is found to be stable and has control of behavior. No psychiatric services needed at this time. PAST PSYCHIATRIC HISTORY: Diagnoses: Depression/anxiety Suicide attempts or Self-harm behavior denies Prior psychiatric hospitalizations denies Substance Abuse history: Denies Previous psychiatric medications tried: Lexapro, doxepin, BuSpar Outpatient treatment: Yes PAST MEDICAL HISTORY: Family Psychiatric History None reported or documented SOCIAL HISTORY Marital Status: Living Arrangements: Self Employment Status: Retired Access to guns/weapons: Education: 12th grade History of Abuse: Denies Legal History: Denies ROS: Constitutional: Negative for weight loss ENT: Negative for stridor Respiratory: Negative for cough or hemoptysis All other systems reviewed and are negative MENTAL STATUS General Appearance and Behavior: age appropriate, good eye contact, cooperative with questioning and polite Cooperation: Cooperative Psychomotor Behavior: within normal limits Mood: OK Affect and affective range: Congruent with stated mood Thought Process: Fluent/Logical and Goal-directed Thought Content: Within reality Speech: Normal volume and Regular rate and rhythm Intellectual Functioning Average Suicidal Ideation: Denies SI Homicidal Ideation: Denies HI Impulse Control: intact Insight and Judgment: normal insight and judgment Memory: Normal Attention: Normal Orientation: alert and oriented RECOMMENDATIONS MEDICATIONS: Risks, benefits and alternatives of medications discussed with the patient, questions answered and consent obtained from patient. PSYCHOTHERAPY: Supportive psychotherapy provided MEDICAL: Per primary team DELIRIUM PRECAUTIONS: Please re-orient patient frequently, keep lights on during the day, and minimize benzodiazepines and opiates as these medications could worsen patient's confusion. HAND CUTTER: DISPOSITION: no indication for acute inpatient psychiatric hospitalization at this time LEGAL STATUS: FOLLOW-UP:sign-off Medications and Allergies Allergies Allergy/AdvReac Type Severity Reaction Status Date / Time Penicillins Allergy Anaphylaxis Verified 05/28/19 18:40 trazodone Allergy Hives Verified 05/28/19 18:40 Home Medications Medication Instructions Recorded Confirmed Last Taken Type Escitalopram Oxalate [Lexapro] 20 mg PO QPM 03/21/18 05/29/19 Unknown History Aspirin 325 mg PO QDAY #30 tablet 06/05/18 05/29/19 Unknown Rx AtorvaSTATin [Lipitor] 40 mg PO QHS #30 tablet 06/05/18 05/29/19 Unknown Rx AtorvaSTATin [Lipitor] 40 mg PO QHS #30 tablet 06/05/18 05/29/19 Unknown Rx Benzonatate [Tessalon Perles] 100 mg PO Q8HR #10 capsule 06/05/18 05/29/19 Unknown Rx Clopidogrel [Plavix] 75 mg PO DAILY #30 tablet 06/05/18 05/29/19 Unknown Rx Doxepin HCl 50 mg PO QHS #30 capsule 06/05/18 05/29/19 Unknown Rx Doxepin [SINEquan] 50 mg PO QHS capsule 06/05/18 05/29/19 Unknown Rx Escitalopram Oxalate [Lexapro] 20 mg PO QPM #30 tablet 06/05/18 05/29/19 Unknown Rx ISOSORBIDE MONOnitrate [Imdur ER] 30 mg PO QDAY #30 tablet 06/05/18 05/29/19 Unknown Rx Linagliptin [Tradjenta] 5 mg PO DAILY@1800 #30 tablet 06/05/18 05/29/19 Unknown Rx Lisinopril [Zestril] 10 mg PO DAILY 30 Days #120 tablet 06/05/18 05/29/19 Unknown Rx Lispro Insulin [HumaLOG] 0 unit SUB-Q ACHS units 06/05/18 05/29/19 Unknown Rx Melatonin [Melatonin 10MG CAP] 10 mg PO QHS #30 capsule 06/05/18 05/29/19 Unknown Rx Metoprolol Xl [Metoprolol 25 mg PO QDAY #30 tablet 06/05/18 05/29/19 Unknown Rx SUCCINATE ER TAB] Ranolazine ER [Ranexa ER] 500 mg PO BID #60 tablet 06/05/18 05/29/19 Unknown Rx Sertraline [Zoloft] 25 mg PO QDAY #30 tablet 06/05/18 05/29/19 Unknown Rx amLODIPine 10 mg PO DAILY #30 tablet 06/05/18 05/29/19 Unknown Rx busPIRone [Buspar] 5 mg PO TID #90 tablet 06/05/18 05/29/19 Unknown Rx busPIRone [Buspar] 7.5 mg PO TID #90 tablet 06/05/18 05/29/19 Unknown Rx donepeziL [Aricept] 5 mg PO QHS #30 tablet 06/05/18 05/29/19 Unknown Rx hydrOXYzine pamoate [Hydroxyzine 25 mg PO QPM #30 capsule 06/05/18 05/29/19 Unknown Rx Pamoate] ALPRAZolam [Xanax TAB] 0.5 mg PO Q8H PRN tablet 05/29/19 Unknown Rx Glimepiride [Amaryl] 4 mg PO QAM #30 tablet 05/29/19 Unknown Rx Lispro Insulin [HumaLOG] 8 unit SUB-Q ACHS #5 pen 05/29/19 Unknown Rx Sitagliptin Phosphate [Januvia] 100 mg PO QPM #30 tablet 05/29/19 Unknown Rx lisinopriL [Zestril TAB] 10 mg PO DAILY tablet 05/29/19 Unknown Rx oxyCODONE /ACETAMINOPHEN [Percocet 1 tab PO Q6H PRN tablet 05/29/19 Unknown Rx 5/325 mg] Active Meds: Active Medications Acetaminophen (Tylenol) 650 mg PO Q4H PRN PRN Reason: Pain, Mild (1-3) Alprazolam (Xanax) 0.5 mg PO Q8H PRN PRN Reason: Anxiety Last Admin: 05/30/19 22:56 Dose: 0.5 mg Documented by: Amlodipine Besylate (Amlodipine) 10 mg PO DAILY [facility] Last Admin: 05/31/19 11:45 Dose: 10 mg Documented by: Aspirin (Aspirin) 325 mg PO QDAY [facility] Last Admin: 05/31/19 11:44 Dose: 325 mg Documented by: Atorvastatin Calcium (Lipitor) 40 mg PO QHS [facility] Last Admin: 05/30/19 22:34 Dose: 40 mg Documented by: Buspirone HCl (Buspar) 5 mg PO TID [facility] Last Admin: 05/31/19 08:15 Dose: Not Given Documented by: Clopidogrel Bisulfate (Plavix) 75 mg PO DAILY [facility] Last Admin: 05/31/19 11:45 Dose: 75 mg Documented by: Donepezil HCl (Aricept) 5 mg PO QHS [facility] Last Admin: 05/30/19 22:34 Dose: 5 mg Documented by: Doxepin HCl (Sinequan) 50 mg PO QHS [facility] Last Admin: 05/30/19 22:33 Dose: 50 mg Documented by: Escitalopram Oxalate (Lexapro) 20 mg PO QPM [facility] Last Admin: 05/30/19 17:27 Dose: 20 mg Documented by: Hydromorphone HCl (Dilaudid) 0.5 mg IV Q3H PRN PRN Reason: Pain , Severe (7-10) Hydroxyzine Pamoate (Vistaril) 25 mg PO QPM [facility] Last Admin: 05/30/19 17:27 Dose: 25 mg Documented by: Insulin Human Lispro (Humalog) 0 unit SUB-Q ACHS [facility]; Protocol Last Admin: 05/31/19 12:48 Dose: 6 unit Documented by: Isosorbide Mononitrate (Imdur) 30 mg PO QDAY [facility] Last Admin: 05/31/19 11:45 Dose: 30 mg Documented by: Lisinopril (Zestril) 10 mg PO DAILY [facility] Last Admin: 05/31/19 11:46 Dose: 10 mg Documented by: Metoprolol Succinate (Metoprolol Xl) 25 mg PO QDAY [facility] Last Admin: 05/31/19 11:47 Dose: 25 mg Documented by: Ondansetron HCl (Zofran) 4 mg IV Q8H PRN PRN Reason: Nausea And Vomiting Oxycodone/Acetaminophen (Percocet 5/325) 1 tab PO Q6H PRN PRN Reason: Pain, Moderate (4-6) Last Admin: 05/31/19 11:48 Dose: 1 tab Documented by: Ranolazine (Ranexa Er) 500 mg PO BID [facility] Last Admin: 05/31/19 11:45 Dose: 500 mg Documented by: Sodium Chloride (Sodium Chloride Flush Syringe 10 Ml) 10 ml IV BID RYAN Last Admin: 05/31/19 11:47 Dose: 10 ml Documented by: Sodium Chloride (Sodium Chloride Flush Syringe 10 Ml) 10 ml IV PRN PRN PRN Reason: LINE FLUSH Mental Status Exam - Vital signs Last Vital Signs Temp 98.3 F 05/31/19 12:01 Pulse 70 05/31/19 12:01 Resp 18 05/31/19 12:01 BP 138/57 05/31/19 12:01 Pulse Ox 94 05/31/19 12:01 Results Result Diagrams: 05/29/19 05:52 05/29/19 05:52 Abnormal lab results 05/30/19 05/30/19 05/31/19 Range/Units 16:31 21:47 09:01 POC Glucose 240 H 311 H 205 H (70-105) 05/31/19 Range/Units 12:11 POC Glucose 303 H (70-105) All other labs normal.
[2019-05-31] MEDS ORDERED: NON-FORMULARY EACH (Melatonin [Melatonin 10mg Cap] 10 MG) PO SCH (22:00)
[2019-05-31] MEDS: ALPRAZolam 0.5 MG TAB PO PRN (22:37)
[2019-05-31] MEDS: DONEPEZIL 5 MG TAB PO SCH (22:37)
[2019-05-31] MEDS: DOXEPIN 25 MG CAP PO SCH (22:37)
[2019-06-01] MEDS: hydrOXYzine PAMOATE 25 MG CAP PO SCH ×2 (08:29→17:36)
[2019-06-01] MEDS: ESCITALOPRAM 10 MG TAB PO SCH ×2 (08:29→17:36)
[2019-06-01] MEDS: MELATONIN 5 MG TAB PO SCH ×2 (08:30→22:52)
[2019-06-01] MEDS: busPIRone 5 MG TAB PO SCH ×3 (11:13→21:45)
[2019-06-01] MEDS: METOPROLOL SUCCINATE XL 25 MG TAB PO SCH (11:13)
[2019-06-01] MEDS: CLOPIDOGREL 75 MG TAB PO SCH (11:13)
[2019-06-01] MEDS: ASPIRIN 325 MG TAB PO SCH (11:13)
[2019-06-01] MEDS: INSULIN LISPRO 100 UNIT/ML SUB-Q SCH ×4 (11:13→22:54)
[2019-06-01] MEDS: HEPARIN 5,000 UNIT/1 ML VIAL SUB-Q SCH ×2 (11:14→22:53)
[2019-06-01] MEDS: LISINOPRIL 20 MG TAB PO SCH (11:14)
[2019-06-01] MEDS: RANOLAZINE ER 500 MG TAB 12HR PO SCH ×2 (11:14→22:52)
[2019-06-01] MEDS: amLODIPine 10 MG TAB PO SCH (11:14)
[2019-06-01] MEDS: ALPRAZolam 0.5 MG TAB PO PRN ×2 (11:32→19:34)
--- NOTE | 2019-06-01 17:06 | Progress Note ---
Assessment and Plan /Chest pain-likely from GERD Lexiscan stress test negative Cardiology cleared the patient for discharge /CAD/PCI Continue aspirin and Plavix /History of stroke Continue Plavix /History of anxiety and depression Continue BuSpar and Lexapro /Type 2 diabetes Continue insulin sliding scale coverage /Hypertension Well-controlled 05/30 Patient was cleared by cardiology for dc. Case management working on arranging placement to SNF 05/31 discharge pending on SNF placement Physical exam: GENERAL: well-developed and well-nourished white female lying on bed appeared to be in no discomfort. HEENT: Normocephalic. Atraumatic. No conjunctival congestion or icterus. Patient has moist mucous membranes. NECK: Supple. Trachea midline. CHEST/LUNGS: Clear to auscultated bilaterally, breathing nonlabored. No wheezes crackles or rhonchi. HEART/CARDIOVASCULAR: Regular in rate and rhythm. S1 and S2 positive. ABDOMEN: Abdomen is soft, nontender. Patient has normal bowel sounds. SKIN: There is no rash. Warm and dry. NEURO: No focal motor deficit. Follows command. MUSCULOSKELETAL: No joint effusion or tenderness. EXTRIMITY: No edema, no cyanosis or clubbing. PSYCH: Cooperative. Subjective Date of service: 06/01/19 Interval history: Patient seen and examined. Medical records and medication list reviewed. No acute event overnight noted by the RN. Patient denies any chest pain or difficulty breathing. Patient is tolerating diet. Discussed plan of care at bedside with patient. Objective - Constitutional Vitals: Vital Signs - 12hr 06/01/19 06/01/19 06/01/19 08:00 08:05 12:00 Temperature 98.6 F 97.0 F L Pulse Rate 69 67 65 Respiratory 20 20 Rate Blood Pressure 124/55 103/63 O2 Sat by Pulse 93 94 Oximetry - Labs CBC & Chem 7: 05/29/19 05:52 06/04/19 05:53 Labs: Abnormal lab results 05/31/19 06/01/19 06/01/19 Range/Units 21:16 08:17 12:12 POC Glucose 198 H 175 H 296 H (70-105) 06/01/19 Range/Units 16:38 POC Glucose 344 H (70-105)
[2019-06-01] MEDS: DOXEPIN 25 MG CAP PO SCH (22:52)
[2019-06-01] MEDS: DONEPEZIL 5 MG TAB PO SCH (22:53)
[2019-06-02] MEDS: busPIRone 5 MG TAB PO SCH ×3 (08:33→21:57)
[2019-06-02] MEDS: INSULIN LISPRO 100 UNIT/ML SUB-Q SCH ×4 (08:34→21:58)
[2019-06-02] MEDS: CLOPIDOGREL 75 MG TAB PO SCH (09:11)
[2019-06-02] MEDS: ASPIRIN 325 MG TAB PO SCH (09:11)
[2019-06-02] MEDS: HEPARIN 5,000 UNIT/1 ML VIAL SUB-Q SCH ×2 (09:11→21:59)
[2019-06-02] MEDS: RANOLAZINE ER 500 MG TAB 12HR PO SCH ×2 (09:11→21:57)
[2019-06-02] MEDS: ALPRAZolam 0.5 MG TAB PO PRN (09:15)
[2019-06-02] MEDS: LISINOPRIL 20 MG TAB PO SCH (10:00)
[2019-06-02] MEDS: amLODIPine 10 MG TAB PO SCH (10:00)
[2019-06-02] MEDS: METOPROLOL SUCCINATE XL 25 MG TAB PO SCH (12:31)
--- NOTE | 2019-06-02 14:47 | Progress Note ---
Assessment and Plan /Chest pain-likely from GERD Lexiscan stress test negative Cardiology cleared the patient for discharge /CAD/PCI Continue aspirin and Plavix /History of stroke Continue Plavix /History of anxiety and depression Continue BuSpar and Lexapro /Type 2 diabetes Continue insulin sliding scale coverage /Hypertension Well-controlled 05/30 Patient was cleared by cardiology for dc. Case management working on arranging placement to SNF 05/31 patient accepted to [facility] - waiting authorization 06/01 patient waiting on SNF placement Physical exam: GENERAL: well-developed and well-nourished white female lying on bed appeared to be in no discomfort. HEENT: Normocephalic. Atraumatic. No conjunctival congestion or icterus. Patient has moist mucous membranes. NECK: Supple. Trachea midline. CHEST/LUNGS: Clear to auscultated bilaterally, breathing nonlabored. No wheezes crackles or rhonchi. HEART/CARDIOVASCULAR: Regular in rate and rhythm. S1 and S2 positive. ABDOMEN: Abdomen is soft, nontender. Patient has normal bowel sounds. SKIN: There is no rash. Warm and dry. NEURO: No focal motor deficit. Follows command. MUSCULOSKELETAL: No joint effusion or tenderness. EXTRIMITY: No edema, no cyanosis or clubbing. PSYCH: Cooperative. Subjective Date of service: 06/02/19 Interval history: Patient seen and examined. Medical records and medication list reviewed. No acute event overnight noted by the RN. Patient denies any chest pain or difficulty breathing. Patient is tolerating diet. Discussed plan of care at bedside with patient. Objective - Constitutional Vitals: Vital Signs - 12hr 06/02/19 06/02/19 06/02/19 03:57 07:50 08:03 Temperature 98.3 F 97.9 F Pulse Rate 60 61 Respiratory 18 18 16 Rate Blood Pressure 114/48 106/44 O2 Sat by Pulse 91 96 Oximetry 06/02/19 06/02/19 06/02/19 10:00 12:18 12:31 Temperature 97.9 F Pulse Rate 61 68 68 Respiratory 16 Rate Blood Pressure 104/44 133/56 133/56 O2 Sat by Pulse 92 Oximetry - Labs CBC & Chem 7: 05/29/19 05:52 06/04/19 05:53 Labs: Abnormal lab results 06/01/19 06/01/19 06/02/19 Range/Units 16:38 21:26 08:15 POC Glucose 344 H 255 H 189 H (70-105) 06/02/19 Range/Units 12:31 POC Glucose 257 H (70-105)
[2019-06-02] MEDS: hydrOXYzine PAMOATE 25 MG CAP PO SCH (17:00)
[2019-06-02] MEDS: ESCITALOPRAM 10 MG TAB PO SCH (17:00)
[2019-06-02] MEDS: MELATONIN 5 MG TAB PO SCH (21:57)
[2019-06-02] MEDS: DONEPEZIL 5 MG TAB PO SCH (21:57)
[2019-06-02] MEDS: DOXEPIN 25 MG CAP PO SCH (22:49)
[2019-06-03] MEDS: INSULIN LISPRO 100 UNIT/ML SUB-Q SCH ×4 (08:00→22:01)
[2019-06-03] MEDS: RANOLAZINE ER 500 MG TAB 12HR PO SCH ×2 (11:19→22:00)
[2019-06-03] MEDS: busPIRone 5 MG TAB PO SCH ×3 (11:19→22:00)
[2019-06-03] MEDS: ASPIRIN 325 MG TAB PO SCH (11:19)
[2019-06-03] MEDS: HEPARIN 5,000 UNIT/1 ML VIAL SUB-Q SCH ×2 (11:20→22:01)
[2019-06-03] MEDS: CLOPIDOGREL 75 MG TAB PO SCH (11:20)
[2019-06-03] MEDS: METOPROLOL SUCCINATE XL 25 MG TAB PO SCH (11:21)
[2019-06-03] MEDS: amLODIPine 10 MG TAB PO SCH (11:22)
[2019-06-03] MEDS: LISINOPRIL 20 MG TAB PO SCH (11:24)
--- NOTE | 2019-06-03 14:47 | Progress Note ---
Assessment and Plan /Chest pain-likely from GERD Lexiscan stress test negative Cardiology cleared the patient for discharge /CAD/PCI Continue aspirin and Plavix /History of stroke Continue Plavix /History of anxiety and depression Continue BuSpar and Lexapro /Type 2 diabetes Continue insulin sliding scale coverage /Hypertension Well-controlled 05/30 Patient was cleared by cardiology for dc. Case management working on arranging placement to SNF 05/31 patient accepted to [facility] - waiting authorization 06/01 patient waiting on SNF placement 06/02 authorization still pending, patient accepted to [facility]. Case management looking for [facility] placement as an alternative. Patient and family is agreeable. Physical exam: GENERAL: well-developed and well-nourished white female lying on bed appeared to be in no discomfort. HEENT: Normocephalic. Atraumatic. No conjunctival congestion or icterus. Patient has moist mucous membranes. NECK: Supple. Trachea midline. CHEST/LUNGS: Clear to auscultated bilaterally, breathing nonlabored. No wheezes crackles or rhonchi. HEART/CARDIOVASCULAR: Regular in rate and rhythm. S1 and S2 positive. ABDOMEN: Abdomen is soft, nontender. Patient has normal bowel sounds. SKIN: There is no rash. Warm and dry. NEURO: No focal motor deficit. Follows command. MUSCULOSKELETAL: No joint effusion or tenderness. EXTRIMITY: No edema, no cyanosis or clubbing. PSYCH: Cooperative. Subjective Date of service: 06/03/19 Interval history: Patient seen and examined. Medical records and medication list reviewed. No acute event overnight noted by the RN. Patient denies any chest pain or difficulty breathing. Patient is tolerating diet. Discussed plan of care at bedside with patient. Objective - Constitutional Vitals: Vital Signs - 12hr 06/03/19 06/03/19 06/03/19 03:31 08:42 09:00 Temperature 98.3 F 98.2 F Pulse Rate 56 L 58 L Pulse Rate [ Apical] Respiratory 18 Rate Blood Pressure 115/43 114/48 O2 Sat by Pulse 95 Oximetry 06/03/19 06/03/19 06/03/19 10:00 11:21 11:22 Temperature Pulse Rate 60 58 L 58 L Pulse Rate [ 60 Apical] Respiratory 20 Rate Blood Pressure 114/58 114/48 O2 Sat by Pulse 98 Oximetry - Labs CBC & Chem 7: 05/29/19 05:52 06/04/19 05:53 Labs: Abnormal lab results 06/02/19 06/02/19 06/03/19 Range/Units 16:25 20:31 08:11 POC Glucose 206 H 166 H 187 H (70-105) 06/03/19 Range/Units 11:43 POC Glucose 313 H (70-105)
[2019-06-03] MEDS: ESCITALOPRAM 10 MG TAB PO SCH (17:07)
[2019-06-03] MEDS: hydrOXYzine PAMOATE 25 MG CAP PO SCH (17:07)
[2019-06-03] MEDS: ALPRAZolam 0.5 MG TAB PO PRN (17:08)
[2019-06-03] MEDS: INSULIN NPH/REGULAR 70/30 INJ SUB-Q SCH (17:08)
[2019-06-03] MEDS: DONEPEZIL 5 MG TAB PO SCH (22:00)
[2019-06-03] MEDS: DOXEPIN 25 MG CAP PO SCH (22:00)
[2019-06-03] MEDS: MELATONIN 5 MG TAB PO SCH (22:00)
[2019-06-04 06:36] LABS: BUN/Creatinine Ratio 20; Blood Urea Nitrogen 14 mg/dL (7-17); Calcium 9.1 mg/dL (8.4-10.2); Hemolysis Index 27
[2019-06-04] MEDS: INSULIN LISPRO 100 UNIT/ML SUB-Q SCH (08:15)
[2019-06-04] MEDS: HEPARIN 5,000 UNIT/1 ML VIAL SUB-Q SCH (09:02)
[2019-06-04] MEDS: RANOLAZINE ER 500 MG TAB 12HR PO SCH (09:03)
[2019-06-04] MEDS: busPIRone 5 MG TAB PO SCH (09:03)
[2019-06-04] MEDS: ASPIRIN 325 MG TAB PO SCH (09:03)
[2019-06-04] MEDS: CLOPIDOGREL 75 MG TAB PO SCH (09:03)
[2019-06-04] MEDS: amLODIPine 10 MG TAB PO SCH (09:05)
[2019-06-04] MEDS: METOPROLOL SUCCINATE XL 25 MG TAB PO SCH (09:05)
[2019-06-04] MEDS: LISINOPRIL 20 MG TAB PO SCH (09:07)
[2019-06-04] MEDS: INSULIN NPH/REGULAR 70/30 INJ SUB-Q SCH (09:23)
[2019-06-04 13:38] VITALS: BP 120/58
--- NOTE | 2019-06-04 14:37 | Discharge Summary ---
Providers - Providers Date of Admission: 05/28/19 17:08 Date of discharge: 06/04/19 Attending physician: RYLEE CONNELLY 05/29/19 18:03 Consult to Case Management [CONS] Urgent Services Needed at Discharge: Other Notified:: put in computer Additional Physician Instructions: jail placement 05/30/19 11:01 Consult Geriatric-Psych [CONS] Routine Consulting Provider: Reason For Exam: Anxiety and psychosis 05/31/19 11:50 Occupational Therapy Evaluate and Treat [CONS] Routine Comment: Reason For Exam: weakness Physical Therapy Evaluation and Treat [CONS] Routine Comment: Reason For Exam: weakness Primary care physician: [employer] Hospitalization Condition: Stable Pertinent studies: Head CT, chest x-ray, MPI/exercise stress test Hospital course: This is 78-year-old female with history of previous stroke, anxiety depression, type 2 diabetes, hypertension, presented to the hospital with 3 days history of chest pain. Patient was admitted to the hospital for further evaluation and management. Her cardiac enzymes are negative, cardiology was consulted, patient had MPI stress test which was normal. Patient was cleared by cardiology for discharge, patient complained of generalized weakness, physical therapy recommended subacute rehab. Patient has no family member to take care of her, daughter lives out of state. shelter placement was initiated by the case management, patient was accepted to [facility], but required insurance authorization. manager of case management then discussed with the family and patient and they were agreeable to [facility] with [facility]. [facility]. Discharge diagnosis: /Chest pain-likely from GERD Lexiscan stress test negative Cardiology cleared the patient for discharge /CAD with h/o PCI Continue aspirin and Plavix /History of stroke Continue Plavix /History of anxiety and depression Continue BuSpar and Lexapro /Type 2 diabetes Continue insulin sliding scale coverage /Hypertension Well-controlled Physical exam: GENERAL: well-developed and well-nourished white female lying on bed appeared to be in no discomfort. HEENT: Normocephalic. Atraumatic. No conjunctival congestion or icterus. Patient has moist mucous membranes. NECK: Supple. Trachea midline. CHEST/LUNGS: Clear to auscultated bilaterally, breathing nonlabored. No wheezes crackles or rhonchi. HEART/CARDIOVASCULAR: Regular in rate and rhythm. S1 and S2 positive. ABDOMEN: Abdomen is soft, nontender. Patient has normal bowel sounds. SKIN: There is no rash. Warm and dry. NEURO: No focal motor deficit. Follows command. MUSCULOSKELETAL: No joint effusion or tenderness. EXTRIMITY: No edema, no cyanosis or clubbing. PSYCH: Cooperative. Disposition: DC-01 TO HOME OR SELFCARE Time spent for discharge: 34 minutes Core Measure Documentation - Palliative Care Palliative Care/ Comfort Measures: Not Applicable - Core Measures Any of the following diagnoses?: history only Exam - Constitutional Vitals: Temp Pulse Resp BP Pulse Ox 98 F 64 18 120/58 99 06/04/19 11:45 06/04/19 11:45 06/04/19 11:45 06/04/19 11:45 06/04/19 11:45 Plan Activity: fall precautions Weight Bearing Status: Non-Weight Bearing Diet: low fat, low salt Follow up with: JOON PHIPPS MD [Staff Physician] - 7 Days PRIMARY CARE, [Primary Care Provider] - 3-5 Days Prescriptions: Glimepiride [Amaryl] 4 mg PO QAM #30 tablet
== END 2019-06-04 13:25 | disposition home or self-care (01) ==
LOC: ED 12:47 → 4A 17:08 → INTOOBSV 05-31 16:34 → OBSVTOIN 05-31 16:34
PROVIDERS: ADMIT Internal Medicine; ATTEND Internal Medicine
DX: R07.89 Other chest pain (principal); I10 Essential (primary) hypertension; E11.9 Type 2 diabetes mellitus without complications; I25.2 Old myocardial infarction; J44.9 Chronic obstructive pulmonary disease, unspecified; E87.1 Hypo-osmolality and hyponatremia; I25.10 Atherosclerotic heart disease of native coronary artery without angina pectoris; Z86.73 Personal history of transient ischemic attack (TIA), and cerebral infarction without residual deficits; Z87.891 Personal history of nicotine dependence; Z79.899 Other long term (current) drug therapy
CPT/HCPCS: 36415; 70450; 71045; 78452; 80048; 80053; 82962; 83036; 83880; 84484; 85025; 93005; 93010; 93017; 96372; 96374; 96375; 97110; 97116; 97161; 97165; 97530; 99285; A9270; A9502; G0378; J1644; J2405; J2785; J3010; J7030; 90732; 96365; J1815; Q0177